=== PATIENT | female | born 1970 | race Caucasian/White ===

== ENCOUNTER → 2017-12-31 16:48 | Outpatient (CLI) | payer OTHER, SELFPAY ==
[2018-01-04 15:55] LABS: HPV Reflexed? NOT INDICATED
== END ==
PROVIDERS: Visit Provider Obstetrics & Gynecology
DX: Z12.4 Encounter for screening for malignant neoplasm of cervix (principal)
CPT/HCPCS: 88175; G0145

== ENCOUNTER → 2025-07-04 | Outpatient (CLI) | payer OTHER, SELFPAY ==
--- OUTSIDE RECORDS SUMMARY | 2025-07-04 07:12 | XMS RPT_ITS | CCD ---
Author Organization [facility] Care Team Providers Care Milk Route Supervisor Name Role Phone Marian RANDOLPH, Luigi Washington Primary Care Provider Lam SWAIN, Ealna Damian Unavailable [phone] Luigi Becerra MD Unavailable Tyron SWAIN, Bela Vides Unavailable Fadia SWAIN, Cj Palencia Unavailable Jeffy CONNELLYN, Rhonda Unavailable Unavailable Pinky HERNÁNDEZ, Bela Byers Unavailable Unavaila marcy Goodiwn LPN, Uche Unavailable Unavailable Graham SWAIN, Mirella J Unavailable [phone] Imer MERCHANDISE PRESENTATION ASSOCIATE, Lucy Unavailable Unavailable Kurt CONNELLYN, Jing Unavailable Unavailab herbert Blanca LPN, Stephany Unavailable Unavailabl e Unavailable Unavailable Luigi Becerra MD Primary Care Provider Unavailable Unavailable Luigi Becerra MD Primary Care Provider DALYIN GERMAIN II Referring UnavailDAYLIN Cisneros II Attending Unavailabl LUIGI Rm Primary Care Unavailable DAYLIN GERMAIN II Attending UnavailLUIGI Plunkett Primary Care Unavailable VY GERMAIN Attending UnavailLUIGI Plunkett Primary Care Unavailable DANIEL MARC Referring Unavailable DANIEL MARC Attending Unavailable LUIGI BECERRA Primary Care Unavailable REILLY OMALLEY Referring Unavailable REILLY OMALLEY Attending Unavailable LUIGI BECERRA Primary Care Unavailable LUIGI BECERRA Primary Care Unavailable Arin Patton MA Unavailable Unavailable Unavailable Unavailable [facility] Attending Unavailable GOODMAN RANDOLPH~[id number], GOODMAN KATLYN Holbrook Attending Unavailable LUIGI HARDY F~[id number] Primary Ca re Unavailable LUIGI HARDY F~[id number] Consulting Unavailable GOODMAN RANDOLPH~[id number], GOODMAN KATLYN Holbrook Admitting Unavailable MARIAN, LUIGI F Consulting Unavailable KATLYN MACK MD Consulting Unavailable KATLYN MACK MD Consulting Unavailable LUIGI HARDY F~[id number] Primary Ca re Unavailable LUIGI HARDY F~[id number] Consulting Unavailable GOODMAN RANDOLPH~[id number], GOODMAN KATLYN Holbrook Admitting Unavailable GOODMAN RANDOLPH~[id number] KATLYN Attending Unavailable MARIAN LUIGI F Consulting Unavailable KATLYN MACK MD Consulting Unavailable GOODMAN RANDOLPH, KATLYN Holbrook Consulting Unavailable KATLYN MACK MD Consulting Unavailable LUIGI HARDY F~[id number] Primary Ca re Unavailable GOODMAN RANDOLPH~[id number], GOODMAN KATLYN Holbrook Admitting Unavailable GOODMAN RANDOLPH~[id number], GOODMAN KATLYN Holbrook Attending Unavailable KATLYN MACK MD Consulting Unavailable Unavailable Primary Care Provider UnavailLARRY Torres Attending Unavailable SELF, SELF Referring Unavailable LARRY CAUSEY Referring Unavailable LARRY CAUSEY Attending Unavailable Lam, Elana Referring Unavailable Elana Fritz Attending Unavailable Luigi Becerra Primary Care Unavailable Unavailable Primary Care Provider UnavailCHOLO Asif Attending Unavail able CHOLO MURILLO Admitting Unavail able Allergies Allergy Classification Reported Allergen(s) Allergy Type Date of Onset Reaction(s) Facility Aspirin (1 source) Aspirin Drug Allergy [facility]; [facility] Opioid Agonists (1 source) Codeine Drug Allergy Vomiting [facility]; [facility] (20 sources) Codeine; Translations: [CODEINE] Drug Allergy 6 GI Upset, Nausea and vomiting [facility] Work Phone: (14 sources) Salicylate product; Translations: [SALICYLATES] Drug Intolerance 6 [facility] Work Phone: (14 sources) Aspirin; Translations: [ASPIRIN] Drug Allergy 5 [facility]; [facility], [facility]. (1 source) tree nut, unspecified; Translations: [TREE NUT] Propensity to adverse reactions to drug (disorder) [facility] Repository Medications Current Medications Medication Drug Class(es) Dates Sig (Normalized) Sig (Original) benoxinate hydrochloride 4 mg/ml / fluorescein sodium 2.5 mg/ml ophthalmic solution (6 sources) Diagnostic Dye Start: 05-15-2023 End: 05-15-2023 fluorescein-benoxi dea 0.25-0.4 % 1 Drop (FLURESS) Start: 04-30-2023 End: 04-30-2023 fluorescein-benoxinate 0.25- 0.4 % 1 Drop (FLURESS) Start: 04-09-2022 End: 04-10-2022 fluorescein-benoxinate 0.25- 0.4 % 1 Drop (FLURESS) Start: 04-05-2022 End: 04-05-2022 fluorescein-benoxinate 0.25- 0.4 % 1 Drop (FLURESS) Start: 03-12-2022 End: 03-13-2022 fluorescein-benoxinate 0.25- 0.4 % 1 Drop (FLURESS) dexamethasone 1 mg/ml / neomycin 3.5 mg/ml / polymyxin b [id number] unt/ml ophthalmic suspension (1 source) Aminoglycoside Antibacterial, Polymyxin-class Antibacterial, Corticosteroid Start: 03-12-2022 End: 03-19-2022 take 1 drop(s) into the eye(s) four times daily [id number] 3.5 MG/ML-10,000 UNIT/ML-0.1% EYE DROPS Use 1 Drop in both eyes four times daily for 7 days. 5 mL 0 03/12/2022 03/19/2022 Active Comment on above: Use 1 Drop in both eyes four times daily for 7 days. levothyroxine sodium 0.05 mg oral tablet (20 sources) l-Thyroxine take 1 tablet by mouth once daily SYNTHROID, 50MCG (Oral Tablet) ; 1 qd (50 MCG) Comment on above: Take 50 mcg by mouth once daily. ondansetron 4 mg oral tablet (1 source) Serotonin-3 Receptor Antagonist Start: 06-21-2025 ondansetron (Zofran) 4 MG tablet Indications: Screen for colon cancer Take 1 (one) tablet (4 mg total) by mouth See Admin Instructions Take one tablet by mouth one hour prior to each colon cleanse as needed for nausea for 2 doses . 2 tablet 06/21/2025 Active phenylephrine hydrochloride 25 mg/ml ophthalmic solution (8 sources) alpha-1 Adrenergic Agonist Start: 11-06-2023 End: 11-06-2023 PHENYLephrine 2.5 % 1 Drop (AK-DILATE, STEPAHNIE-SYNEPHRINE) Start: 05-15-2023 End: 05-15-2023 PHENYLephrine 2.5 % 1 Drop ( AK-DILATE, STEPHANIE-SYNEPHRINE) Start: 04-30-2023 End: 04-30-2023 PHENYLephrine 2.5 % 1 Drop ( AK-DILATE, STEPHANIE-SYNEPHRINE) Start: 04-16-2023 End: 04-16-2023 PHENYLephrine 2.5 % 1 Drop ( AK-DILATE, STEPHANIE-SYNEPHRINE) Start: 04-14-2023 End: 04-14-2023 PHENYLephrine 2.5 % 1 Drop ( AK-DILATE, STEPHANIE-SYNEPHRINE) Start: 04-09-2022 End: 04-10-2022 PHENYLephrine 2.5 % 1 Drop ( AK-DILATE, STEPHANIE-SYNEPHRINE) Start: 04-05-2022 End: 04-05-2022 PHENYLephrine 2.5 % 1 Drop ( AK-DILATE, STEPHANIE-SYNEPHRINE) polymyxin b [id number] unt/ml / trimethoprim 1 mg/ml ophthalmic solution (4 sources) Dihydrofolate Reductase Inhibitor Antibacterial, Polymyxin-class Antibacterial Start: 04-05-2022 End: 04-10-2022 take 1 drop(s) into the eye(s) four times daily trimethoprim-polymyxin (POLYTRIM) 10,000 unit- 1 mg/mL ophthalmic solution Use 1 Drop in the right eye four times daily for 5 days. 10 mL 0 04/05/2022 04/10/2022 Active Comment on above: Use 1 Drop in the ri ght eye four times daily for 5 days. proparacaine hydrochloride 5 mg/ml ophthalmic solution (4 sources) Local Anesthetic Start: 11-06-2023 End: 11-06-2023 proparacaine 0.5 % 1 Drop (ALCAINE) Start: 05-15-2023 End: 05-15-2023 proparacaine 0.5 % 1 Drop (A LCAINE) Start: 04-30-2023 End: 04-30-2023 proparacaine 0.5 % 1 Drop (A LCAINE) Start: 04-09-2022 End: 04-10-2022 proparacaine 0.5 % 1 Drop (A LCAINE) sod sulf-pot chloride-mag sulf (Sutab) 1.479-0.188- 0.225 gram Tab (1 source) Start: 06-21-2025 sod sulf-pot chloride-mag sulf (Sutab) 1.479-0.188- 0.225 gram Tab Indications: Screen for colon cancer Take 1 kit by mouth See Admin Instructions Please take as directed per office letter you have received. DO NOT FOLLOW THE DIRECTIONS ON THIS BOX. for 1 dose . 24 tablet 06/21/2025 Active thyroid (prison) 15 mg oral tablet (20 sources) Start: 07-25-2021 take 3 tablets by mouth once daily [place] THYROID 15 mg tablet Take 45 mg by mouth once daily. 0 07/25/2021 Active End: 04-14-2023 Thyroid 32.5 mg ORAL tablet Take 32.5 mg by mouth. 0 04/14/2023 Discontinued (Discontinued by another Health Care Provider) Comment on above: Take 32.5 mg by mout h. Take 45 mg by mouth once daily. tropicamide 10 mg/ml ophthalmic solution (8 sources) Anticholinergic Start: 11-06-2023 End: 11-06-2023 tropicamide 1 % 1 Drop (MYDRIACYL) Start: 05-15-2023 End: 05-15-2023 tropicamide 1 % 1 Drop (MYDR IACYL) Start: 04-30-2023 End: 04-30-2023 tropicamide 1 % 1 Drop (MYDR IACYL) Start: 04-16-2023 End: 04-16-2023 tropicamide 1 % 1 Drop (MYDR IACYL) Start: 04-14-2023 End: 04-14-2023 tropicamide 1 % 1 Drop (MYDR IACYL) Start: 04-09-2022 End: 04-10-2022 tropicamide 1 % 1 Drop (MYDR IACYL) Start: 04-05-2022 End: 04-05-2022 tropicamide 1 % 1 Drop (MYDR IACYL) Completed/Discontinued Medications Medication Drug Class(es) Dates Sig (Normalized) Sig (Original) amoxicillin 500 mg oral tablet (13 sources) Penicillin-class Antibacterial Start: 11-10-2017 End: 11-20-2017 take 1 tablet by mouth three times daily Amoxicillin 500 MG Oral Tablet ; 1 (one) Tablet TID for 10 days Quantity: 30 {Tablet} Refills: 0 Ordered: 10-Nov-2017 MD Luigi Becerra Start: 10-Nov-2017 End: 20-Nov-2017 Status: Inactive cephalexin 500 mg oral capsule (13 sources) Cephalosporin Antibacterial Start: 03-22-2020 End: 04-01-2020 take 1 capsule by mouth three times daily Cephalexin 500 MG Oral Capsule ; 1 Capsule three times daily for 10 days Quantity: 30 {Capsule} Refills: 0 Ordered: 22-Mar-2020 BRYNN Ackerman Start: 22-Mar-2020 End: 01-Apr-2020 Status: Inactive fluorometholone 1 mg/ml ophthalmic suspension (2 sources) Corticosteroid Start: 04-09-2022 End: 04-16-2022 fluorometholone (FML LIQUID FILM) 0.1 % ophthalmic suspension Use 1 Drop in the right eye four times daily. 5 mL 1 04/09/2022 04/16/2022 Discontinued (Clinical Decision) Comment on above: Use 1 Drop in the ri ght eye four times daily. neomycin/polymyxin B/dexametha (MAXITROL OPHTHALMIC) (1 source) End: 04-05-2022 neomycin/polymyxin B/dexametha (MAXITROL OPHTHALMIC) Use in eyes. 0 04/05/2022 Discontinued (Course of therapy completed) Comment on above: Use in eyes. predniSONE 20 mg oral tablet (4 sources) Start: 10-19-2024 End: 01-20-2025 predniSONE 20 mg tablet ; 1 (one) Tablet as directed for 0 days Quantity: 20 {Tablet} Refills: 0 Ordered: 20-Jan-2025 DESMOND Bardales Start: 19-Oct-2024 End: 20-Jan-2025 Status: Inactive Comments: Take 3tabs qd for 3 days thenTake 2tabs qd for 3 days thenTake 1tab qd for 3 days thenTake 1/2tab qd for 4 days. Comment on above: Take 3tabs qd for 3 days thenTake 2tabs qd for 3 days thenTake 1tab qd for 3 days thenTake 1/2tab qd for 4 days. Problems Active Problems Problem Classification Problem Date Documented Date Episodic/Chronic Abdominal pain (20 sources) Abdominal pain; Translations: [Unspecified abdominal pain] 04-16-2023 Episodic Genitourinary symptoms and ill-defined conditions (3 sources) Dysuria; Translations: [Dysuria] Onset: 05-14-2025 05-15-2025 Episodic Inflammation; infection of eye (except that caused by tuberculosis or sexually transmitteddisease) (1 source) Conjunctivitis of bilateral eyes caused by bacteria; Translations: [Unspecified conjunctivitis] Episodic Influenza (20 sources) Influenza with other respiratory manifestations 11-28-2021 Episodic Nutritional deficiencies (3 sources) Vitamin D deficiency, unspecified; Translations: [VITAMIN D DEFICIENCY UNSPECIFIED] Onset: 09-03-2024 Chronic Other eye disorders (1 source) Hemorrhage of left vitreous body; Translations: [Vitreous hemorrhage, left eye] 04-14-2023 Chronic Other eye disorders (1 source) Bilateral vitreous floaters; Translations: [Other vitreous opacities, bilateral] 04-14-2023 Chronic Other injuries and conditions due to external causes (20 sources) Foreign body in left ear; Translations: [Foreign body in left ear, initial encounter] 04-16-2023 Episodic Other injuries and conditions due to external causes (20 sources) Knee, leg, ankle, and foot injury 04-16-2023 Episodic Other non-traumatic joint disorders (20 sources) Joint pain; Translations: [Pain in unspecified joint] 04-16-2023 Episodic Other non-traumatic joint disorders (20 sources) Knee pain; Translations: [Pain in right knee] 04-16-2023 Episodic Other screening for suspected conditions (not mental disorders or infectious disease) (20 sources) Patient encounter status; Translations: [Encounter for screening for diabetes mellitus] Onset: 06-19-2025 11-30-2021 Episodic Other skin disorders (20 sources) Sebaceous cyst of skin; Translations: [Sebaceous cyst] 04-16-2023 Episodic Other skin disorders (8 sources) Eruption; Translations: [Rash and other nonspecific skin eruption] 10-19-2024 Episodic Otitis media and related conditions (20 sources) Otitis media of left ear; Translations: [Otitis media, unspecified, left ear] 04-16-2023 Episodic Poisoning by nonmedicinal substances (5 sources) Tick bite; Translations: [Bitten or stung by nonvenomous insect and other nonvenomous arthropods, initial encounter] 01-20-2025 Episodic Residual codes; unclassified (20 sources) Body mass index 20-24 - normal; Translations: [Body mass index (BMI) 23.0-23.9, adult] 04-16-2023 Episodic Retinal detachments; defects; vascular occlusion; and retinopathy (2 sources) Hemorrhage of left retina; Translations: [Retinal hemorrhage, left eye] 04-16-2023 Chronic Superficial injury; contusion (4 sources) Conjunctival abrasion; Translations: [Injury of conjunctiva and corneal abrasion without foreign body, right eye, initial encounter] Episodic Thyroid disorders (17 sources) Hypothyroidism; Translations: [Hypothyroidism, unspecified] Onset: 06-20-2008 06-20-2008 Chronic Unclassified (4 sources) Number of Children 10-19-2024 Comment on above: 3. 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, unspecified eye] Onset: 01-01-2016 01-01-2016 Episodic Open wounds of head; neck; and trunk (12 sources) Conjunctival laceration; Translations: [Ocular laceration without prolapse or loss of intraocular tissue, right eye, initial encounter] Onset: 04-09-2022 04-09-2022 Episodic Other and unspecified benign neoplasm (13 sources) Nevus of choroid of left eye; 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 The course has been increasing. The pain is described as a plugged (fly in ear, suffocated it with oil.). The pain is described as being located in the inner ear. The pain is felt in the left ear. There has been no associated chills, decreased hearing, fever, inability to 'pop' ear drum, non-purulent discharge from ear, protrusion of ear, purulent discharge from ear, sore throat, runny nose, cough, tinnitus or vertigo. Medical History does not include ear infections, seasonal allergies or recurrent sinusitis. 03-06-2022 Unclassified (13 sources) Well adult female - The patient feels well with no complaints, has good energy level and is sleeping well. The first day of the last menstrual period was : (08/2021). The patient has a balanced diet. The patient exercises daily. The patient sleeps 7 hours per night. 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 11-28-2021 Unclassified (13 sources) boil on back - pt said she noticed a small knot on her back for about 6 months- upper back- it didnt hurt friday of last week, and this weekend it flared up - it started to look like a zit, and now its very tender, warm to touch, and hurts if a bra is on it, or if she moves her arm, shoulders and back, it hurtseven sitting she feels a very tight paintright hot compress, boileas, lis oil- nothings helped, daughter popped it last night and drainage came outleaving for vacation on friday and is worried about it causing pain 03-22-2020 Unclassified (13 sources) Cold Symptoms - Symptoms include nasal congestion, runny nose, purulent discharge, ear pain (particularly the left.), dry cough, fever (highest 101 and that started Friday into Friday. No fever yeaterday during the day but had one last night of 101 as well. No temperature this am.), chills and facial pain (and muscles and joints ache.), but do not include sore throat, scratchy throat, wheezing or headache. The onset was gradual 4 day(s) ago. The patient describes this as worsening. The patient is not currently being treated for this problem. Risk factors do not include smoking. Note for Upper respiratory infection: reviewed by [facility] 11-10-2017 Unclassified (13 sources) Cold Symptoms - Symptoms include nasal congestion, runny nose, ear pain (left; can't hear out of the ear), sore throat, dry cough, productive cough, fever, chills and headache. The onset was gradual 2 day(s) ago. The symptoms occur constantly. The patient describes this as moderate in severity and unchanged. Current treatment includes NSAIDs (730). 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 Medical history includes tonsillectomy, but patient denies history of seasonal allergies, recurrent sinusitis, recurrent strep pharyngitis, asthma or recurrent ear infections. 09-02-2014 Unclassified (13 sources) Knee Pain - The onset of the knee pain has been sudden following an incident not at work and has been occurring in a persistent pattern for 2 days. The course has been worsening. The knee pain is moderate to severe in the right knee. The knee pain is characterized as a dull aching. The knee pain is described as being located in the posterior knee. The knee pain is aggravated by physical activity. The knee pain is relieved by ice and elevation of leg. The symptoms have been associated with muscle stiffness, giving way, joint swelling and painful ROM, but have not been associated with warmth, erythema, fever, chills, difficulty going up and down stairs or difficulty with sports activities. The knee pain was preceeded by sports activities (soccer- planted and pivoted and witnessed the knee shift outward). There were no previous diagnostic tests. There were no previous evaluations. There has been no previous surgeries. There is no use of assistive devices. Previous medications include NSAID. 06-28-2013 Unclassified (13 sources) Abdominal pain - The onset of the abdominal pain has been acute and has been occurring in an intermittent pattern for 6 months. The course has been increasing. The pain is described as a moderate burning, stabbing and dull ache. The pain is located in the lower abdomen (Lower to mid abdomen.). The symptoms are relieved by bowel movements (irregular bowels. Tends to have looser stools. Is not constipated.). The symptoms have been associated with abdominal distention and bloating, while the symptoms have not been associated with constipation or diarrhea. Note for Abdominal pain: Complains of increased fatigue over the past several months.Father of liver cancer 5 years ago ( pt sx are similar ). Pain is not worsening. Pt notes she can't eat nuts or she gets increased sx. Minimal caffeine. Rare EtOH. 04-14-2012 Unclassified (13 sources) Injured left great toe - `Kicked a soccer ball with bare foot and injured left great toe 1 week ago. Continues with swelling and pain has been increasing. 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 No previous injury hx. 04-24-2011 Unclassified (4 sources) Rash - The onset of the rash has been sudden and has been occurring in a persistent pattern for 2 days. The course has been increasing. The rash is characterized as red and raised above the skin. The rash was first seen on the face (around the eyes). It spread to the face, the neck, the trunk and the back. There has been associated itching and erythema, while there has been no associated pain, drainage or edema. There has been associated itching, while there has been no chills, fatigue, fever, malaise or weight loss. Note for Rash: Patient denies any new exposures such as soaps, lotions, or laundry detergents.Patient reports that she has new foster children at home. She is concerned about the possibility of strep as this has been going around many schools. She denies any sore throat, fever, general malaise, or other cold symptoms. 10-19-2024 Unclassified (1 source) Insect Bite/Sting 01-20-2025 Unclassified (2 sources) tick bite - Patient states last week on 01/10/2025 she found a tick on her very lower back/ intergluteal fold. She was able to get the tick outSince then the area is slightly red and itchy, no bullseye rashPatient thinks the tick was on for only a day or less, and she said the tick was very small reviewed by [facility] 01-20-2025 Results Test Name Value Interpretation Reference Range Facility THINPREP AUTOMATED PAP AND H PV mRNA E6/E7on 06-11-2025 CLINICAL INFORMATION: Normal [facility] Comment on above: Result Comment: Rout ine exam Performed By: #### [id number] #### [facility] [address], [address] [place] [address] Computer Systems Software Engineer: Philippe Watt MD COMMENT Normal [facility] Comment on above: Result Comment: EXPL ANATORY NOTE: The Pap is a screening test for cervical cancer. It is not a diagnostic test and is subject to false negative and false positive results. It is most reliable when a satisfactory sample, regularly obtained, is submitted with relevant clinical findings and history, and when the Pap result is evaluated along with historic and current clinical information. Performed By: #### [id number] #### [facility] [address], [address] [place] [address] Computer Systems Software Engineer: Philippe Watt MD COMMENT: Normal [facility] Comment on above: Result Comment: This Pap test has been evaluated with the ThinPrep(R) Imaging System. Parabasal cells in smears that lack maturation due to atrophy or other hormonal reasons cannot be differentiated from transformation zone cells. Accordingly, presence or absence of endocervical or transformation zone components cannot be reported in this patient. Performed By: #### [id number] #### [facility] [place] [address] Computer Systems Software Engineer: Philippe Watt MD WEB APPLICATIONS PROGRAMMER: Normal [facility] Comment on above: Result Comment: PCJ, SCT(ASCP) CT screening location: [facility] [place] [address]. CLIA: [id number] Performed By: #### 9 [id number] #### [facility] [address], [address] [place] [address] Computer Systems Software Engineer: Philippe Watt MD HPV mRNA E6/E7 Not detected Normal Not Detected [facility] Comment on above: Result Comment: Meth odology: Printing Pressman-Mediated Amplification This assay detects E6/E7 viral messenger RNA (mRNA) from 14 high-risk HPV types (16,18,31,33,35,39,45,51,52,56,58,59,66,68). Cervical sources are required for HPV testing. If a vaginal source from a patient who has had a total hysterectomy with removal of cervix was submitted, please contact the testing laboratory for alternative testing options. For additional information, please refer to http://education.Co-Work/faq/BMX378j3 (This link if provided for information/ educational purposes only.) Performed By: #### [id number] #### [facility] [place] [address] Computer Systems Software Engineer: Philippe Watt MD INTERPRETATION/RESULT: Normal [facility] Comment on above: Result Comment: Cyto logy Results: Negative for intraepithelial lesion or malignancy. Atrophic pattern; predominantly parabasal cells Performed By: #### 9 [id number] #### [facility] [place] [address] Computer Systems Software Engineer: Philippe Watt MD LMP: Normal [facility] Comment on above: Result Comment: MIGNON DUMONT Performed By: #### 9 0933 #### [facility] [place] [address] Computer Systems Software Engineer: Philippe Watt MD PREV. BX: Normal [facility] Comment on above: Result Comment: None given Performed By: #### 9 0933 #### [facility] [place] [address] Computer Systems Software Engineer: Philippe Watt MD PREV. PAP: Normal [facility] Comment on above: Result Comment: None given Performed By: #### 9 0933 #### [facility] [place] [address] Computer Systems Software Engineer: Philippe Watt MD SOURCE: Normal [facility] Comment on above: Result Comment: Cerv ix Performed By: #### 9 0933 #### [facility] [place] [address] Computer Systems Software Engineer: Philippe Watt MD STATEMENT OF ADEQUACY: Normal [facility] Comment on above: Result Comment: SATI SFACTORY FOR EVALUATION Performed By: #### 9 0933 #### [facility] [address], [address] [place] [address] Computer Systems Software Engineer: Philippe Watt MD LIPID PANEL, [facility] 05-16 Cholesterol [Mass/Vol] 194 mg/dL Normal <200 [facility] Comment on above: Performed By: #### 7 600 #### [facility] [address], [address] [place] [address] Computer Systems Software Engineer: Philippe Watt MD Cholesterol in HDL [Mass/Vol] 78 mg/dL Normal > OR = 50 [facility] Comment on above: Performed By: #### 7 600 #### [facility] [address], [address] [place] [address] Computer Systems Software Engineer: Philippe Watt MD Cholesterol in LDL [Mass/Vol] 99 mg/dL Normal [facility] Comment on above: Result Comment: Refe rence range: <100 Desirable range <100 mg/dL for primary prevention; <70 mg/dL for patients with CHD or diabetic patients with > or = 2 CHD risk factors. LDL-C is now calculated using the Go-Dena calculation, which is a validated novel method providing better accuracy than the Friedewald equation in the estimation of LDL-C. Go ALLEN et al. AYSHA. 2013;310(19): 2022-2308 (http://education.[employer]/faq/XXU777) Performed By: #### 7 600 #### [facility] [address], [address] [place] [address] Computer Systems Software Engineer: Philippe Watt MD Cholesterol.total/Choles terol in HDL [Mass ratio] 2.5 {ratio} Normal <5.0 [facility] Comment on above: Performed By: #### 7 600 #### [facility] [address], [address] [place] [address] Computer Systems Software Engineer: Philippe Watt MD NON HDL CHOLESTEROL 116 mg/dL (calc) Normal <130 [facility] Comment on above: Result Comment: For patients with diabetes plus 1 major ASCVD risk factor, treating to a non-HDL-C goal of <100 mg/dL (LDL-C of <70 mg/dL) is considered a therapeutic option. Performed By: #### 7 600 #### [facility] [address] [facility], [address] [place] [address] Computer Systems Software Engineer: Philippe Watt MD Triglyceride [Mass/Vol] 78 mg/dL Normal <150 [facility] Comment on above: Performed By: #### 7 600 #### [facility] [address] [place] [address], [address] [place] [address] Computer Systems Software Engineer: Philippe Watt MD URINE CULTUREon 05-16-2025 Bacteria identified Cx Nom (U) SPECIMEN DESCRIPTION URINE CLEAN CATCH COLONY COUNT 50,000 C/C/ML CULTURE ESCHERICHIA COLI * Result Note: Testing performed at [place] [address] * REPORT STATUS 05/16/2025 * Result Note: FINAL * ORGANISM ESCHERICHIA COLI * Result Note: ESCHERICHIA COLI * METHOD HANK AMPICILLIN >=32 RESISTANT AMPICILLIN/SULBACTAM >=32 RESISTANT CEFTRIAXONE <=1 SUSCEPTIBLE CEFAZOLIN 16 INTERMEDIATE IMIPENEM <=0.25 SUSCEPTIBLE GENTAMICIN >=16 RESISTANT TOBRAMYCIN 4 SUSCEPTIBLE TRIMETH-SULFA >=320 RESISTANT AMOXICILLIN/CLAVULANIC A 16 INTERMEDIATE NITROFURANTOIN <=16 SUSCEPTIBLE PIPERACILLIN/TAZOBACTA M 16 SUSCEPTIBLE LEVOFLOXACIN <=0.12 SUSCEPTIBLE ESBL NEGATIVE ERTAPENEM <=0.5 SUSCEPTIBLE CEFEPIME <=1 SUSCEPTIBLE CEFTAZIDIME <=1 SUSCEPTIBLE Normal [facility] Comment on above: Performed By: #### A URNC #### [place] [address] POCT URINALYSIS DIPSTICK NON AUTOMATEDOrdered By: Chloe Eaton on 05-15-2025 Amorphous sediment LM Ql (Urine sed) [facility] Appearance (U) cloudy [facility] Bacteria LM Ql (Urine sed) [facility] Bilirubin Ql (U) Negative [facility] Casts LM.LPF (Urine sed) [#/Area] [facility] Color (U) light yellow [facility] Crystals LM Nom (Urine sed) [facility] Epithelial cells.squamous LM.HPF (Urine sed) [#/Area] [facility] Flow cytometry specialist review Geovanni (Unsp spec) [Interp] [facility] Glucose Auto test strip (U) [Mass/Vol] Negative mg/dL [facility] Interpretation and review of laboratory results Abnormal [facility] Ketones [Mass/Vol] Negative mg/dL [facility] Leukocyte esterase Qn (U) [facility] Leukocyte esterase Test strip Ql (U) large [facility] Nitrite Ql (U) Negative [facility] pH (U) 6.5 [pH] 5 - 7 [facility] Protein Ql (U) 30 mg/dL [facility] RBC LM.HPF (Urine sed) [#/Area] [facility] RBC Ql (U) large [facility] Specific gravity (U) [Rel density] 1.010 1.001 - 1.035 [facility] Transitional cells LM Ql (Urine sed) [facility] Urobilinogen Qn (U) 0.2 [facility] WBC LM.HPF (Urine sed) [#/Area] [facility] 25-hydroxyvitamin D [Mass/Vo l]on 02-21-2025 25-hydroxyvitamin D3 [Mass/Vol] 49.6 ng/mL Normal 30.0-100.0 [facility] Comment on above: Performed By: #### 3 024-7, 69547-0, 2777-1, 23275-6, 80418-1, 3051-0, 40847-5, 17209-1 #### [facility] [address] [place] [address] Computer Systems Software Engineer - Rani COLES [id number] HVITD VITAMIN D INTERPRETATION VITAMIN D STATUS RANGE ----- DEFICIENCY <20 ng/mL INSUFFICIENCY 20-30 ng/mL SUFFICIENCY 30-100 ng/mL TOXICITY >100 ng/mL Normal [facility] Comment on above: Performed By: #### 3 024-7, 19538-0, 2777-1, 94012-5, 60408-3, 3051-0, 97598-2, 90844-6 #### [facility] [address] [place] [address] Computer Systems Software Engineer - Rani COLES [id number] Basic metabolic 2000 panelon 02-21-2025 Anion gap [Moles/Vol] 6.0 mmol/L Normal <=15.0 [facility] Comment on above: Performed By: #### 6 2292-8, 2777-1, 3024-7, 3051-0, 02015-6, 46310-8, 71298-9, 11952-2 #### [facility] [address] [place] [address] Computer Systems Software Engineer - Rani COLES [id number] Calcium [Mass/Vol] 10.0 mg/dL Normal 8.5-10.1 [facility] Comment on above: Performed By: #### 6 2292-8, 2777-1, 3024-7, 3051-0, 33106-6, 66550-0, 49248-1, 88372-4 #### [facility] [address] [place] [address] Computer Systems Software Engineer - Rani COLES [id number] Chloride [Moles/Vol] 108 mmol/L High 98-107 [facility] Comment on above: Performed By: #### 6 2292-8, 2777-1, 3024-7, 3051-0, 90141-9, 32265-9, 15698-9, 96070-4 #### [facility] [address] [place] [address] Computer Systems Software Engineer - Rani COLES [id number] CO2 [Moles/Vol] 30 mmol/L Normal 21-32 [facility] Comment on above: Performed By: #### 6 2292-8, 2777-1, 3024-7, 3051-0, 96319-7, 62517-5, 99836-8, 40359-6 #### [facility] [address] [place] [address] Computer Systems Software Engineer - Rani COLES [id number] Creatinine [Mass/Vol] 0.82 mg/dL Normal 0.51-0.95 [facility] Comment on above: Performed By: #### 6 2292-8, 2777-1, 3024-7, 3051-0, 80953-6, 17583-4, 15623-6, 02089-9 #### [facility] [address] [place] [address] Computer Systems Software Engineer - Rani COLES [id number] GFR/1.73 sq M.predicted MDRD (S/P/Bld) [Vol rate/Area] mL/min/{1.73_m2} Normal >=60 [facility] Comment on above: Performed By: #### 6 2292-8, 2777-1, 3024-7, 3051-0, 71960-4, 22565-3, 56895-3, 24458-6 #### [facility] [address] [place] [address] Computer Systems Software Engineer - Rani COLES [id number] Glucose [Mass/Vol] 86 mg/dL Normal 74-106 [facility] Comment on above: Performed By: #### 6 2292-8, 2777-1, 3024-7, 3051-0, 86613-2, 11644-2, 61569-4, 41457-7 #### [facility] [address] [place] [address] Computer Systems Software Engineer - Rani COLES [id number] HGFR GLOMERULAR FILTRATIO N RATE INTERPRETATION~The eGFR is calculated using the MDRD equation.~This equation has been validated in patients with chronic kidney disease;~however, it underestimates the GFR in healthy patients with GFR's over 60 mL/min.~The equation is not valid in children under the age of 18.~NOTE: Criteria for Chronic Kidney Disease:~ ~1. Kidney damage for at least three months, as defined~by structural or functional abnormalities of the kidney,~with or without decreased glomerular filtration rate, manifested by either:~* Pathological abnormalities or~* Markers of Kidney damage, including abnormalities in~the composition of the blood or urine or abnormalities in imaging tests.~ ~2. GFR <60 mL/min/1.73 m squared for at least three months, with or without kidney damage.~ Normal [facility] Comment on above: Performed By: #### 6 2292-8, 2777-1, 3024-7, 3051-0, 43051-0, 09470-3, 55351-8, 64812-2 #### [facility] [address] [place] [address] Computer Systems Software Engineer - Rani Urbinanikole COLES [id number] Potassium [Moles/Vol] 4.5 mmol/L Normal 3.5-5.1 [facility] Comment on above: Performed By: #### 6 2292-8, 7-1, 3024-7, 3051-0, 49469-9, 88327-3, 81331-4, 48858-0 #### [facility] [address] [place] [address] Computer Systems Software Engineer - Rani COLES [id number] Sodium [Moles/Vol] 144 mmol/L Normal 136-145 [facility] Comment on above: Performed By: #### 6 2292-8, 7-1, 3024-7, 3051-0, 16852-3, 34358-3, 14795-7, 86926-4 #### [facility] [address] [place] [address] Computer Systems Software Engineer - Rani COLES [id number] Urea nitrogen [Mass/Vol] 12 mg/dL Normal 7-17 [facility] Comment on above: Performed By: #### 6 2292-8, 2777-1, 3024-7, 3051-0, 18466-6, 31167-6, 65734-9, 70613-4 #### [facility] [address] [place] [address] Computer Systems Software Engineer - Rani COLES [id number] CBC panel Auto (Bld)on 02-21 Erythrocyte distribution width (RBC) [Entitic vol] 40.5 fL Normal 36.4-46.3 [facility] Comment on above: Performed By: #### 3 024-7, 13522-4, 2777-1, 57547-7, 74876-5, 3051-0, 25790-2, 40045-3 #### [facility] [address] [place] [address] Computer Systems Software Engineer - Rani COLES [id number] Hematocrit (Bld) [Volume fraction] 40.1 % Normal 37.0-47.0 [facility] Comment on above: Performed By: #### 3 024-7, 74501-8, 2777-1, 65006-1, 90275-7, 3051-0, 71773-9, 07709-7 #### [facility] [address] [place] [address] Computer Systems Software Engineer - Rani COLES [id number] Hemoglobin (Bld) [Mass/Vol] 13.3 g/dL Normal 12.0-16.0 [facility] Comment on above: Performed By: #### 3 024-7, 92375-5, 2777-1, 07466-9, 74156-5, 3051-0, 72048-9, 08898-5 #### [facility] [address] [place] [address] Computer Systems Software Engineer - Rani COLES [id number] MCH (RBC) [Entitic mass] 29.9 pg Normal 27.0-31.0 [facility] Comment on above: Performed By: #### 3 024-7, 77015-2, 2777-1, 44753-2, 83136-8, 3051-0, 52906-7, 41030-5 #### [facility] [address] [place] [address] Computer Systems Software Engineer - Rani COLES [id number] MCHC (RBC) [Mass/Vol] 33.2 g/dL Normal 32.0-36.0 [facility] Comment on above: Performed By: #### 3 024-7, 29048-7, 2777-1, 59739-4, 64288-7, 3051-0, 21906-2, 73972-2 #### [facility] [address] [place] [address] Computer Systems Software Engineer - Rani COLES [id number] MCV (RBC) [Entitic vol] 90.1 fL Normal 80.0-100.0 [facility] Comment on above: Performed By: #### 3 024-7, 93059-6, 2777-1, 17599-7, 03576-9, 3051-0, 36954-7, 82979-3 #### [place] [address] [place] [address] Computer Systems Software Engineer - Rani COLES [id number] Platelet mean volume (Bld) [Entitic vol] 10.1 fL Normal 9.0-13.0 [facility] Comment on above: Performed By: #### 3 024-7, 29343-7, 2777-1, 91151-6, 43879-3, 3051-0, 63966-9, 99758-3 #### [place] [address] [place] [address] Computer Systems Software Engineer - Rani BRANDONIA [id number] Platelets (Bld) [#/Vol] 265 10*3/uL Normal 130-400 [facility] Comment on above: Performed By: #### 3 024-7, 06381-8, 2777-1, 07709-2, 81702-8, 3051-0, 67778-3, 25112-6 #### [facility] [address] [place] [address] Computer Systems Software Engineer - Rani BRANDONIA [id number] RBC (Bld) [#/Vol] 4.45 10*6/uL Normal 4.00-6.30 [facility] Comment on above: Performed By: #### 3 024-7, 20250-3, 2777-1, 77777-0, 40058-8, 3051-0, 85683-5, 53241-8 #### [facility] [address] [facility] [place] [address] Computer Systems Software Engineer - Rani COLES [id number] WBC (Bld) [#/Vol] 5.91 10*3/uL Normal 4.80-10.80 [facility] Comment on above: Performed By: #### 3 024-7, 44148-3, 2777-1, 32467-8, 43678-5, 3051-0, 36754-7, 86660-7 #### [facility] [address] [facility] [place] [address] Computer Systems Software Engineer - Rani COLES [id number] FREE T3on 02-21-2025 Free T3 [Mass/Vol] 3.94 pg/mL Normal 2.18-3.98 [facility] Comment on above: Performed By: #### 6 2292-8, 2777-1, 3024-7, 3051-0, 40182-6, 78737-9, 26560-4, 56150-3 #### [facility] [address] [facility] [place] [address] Computer Systems Software Engineer - Rani COLES [id number] FREE T4on 02-21-2025 Free T4 [Mass/Vol] 1.12 ng/dL Normal 0.76-1.46 [facility] Comment on above: Performed By: #### 3 024-7, 44100-3, 2777-1, 17916-2, 38749-5, 3051-0, 53971-3, 50288-5 #### [facility] [address] [facility] [place] [address] Computer Systems Software Engineer - Rani BRANDONIA [id number] Hepatic function 2000 panelo n 02-21-2025 Albumin [Mass/Vol] 3.8 g/dL Normal 3.4-5.0 [facility] Comment on above: Performed By: #### 3 024-7, 37748-0, 2777-1, 59081-3, 59857-9, 3051-0, 59813-8, 57822-1 #### [facility] [address] [facility] [place] [address] Computer Systems Software Engineer - Rani COLES [id number] Albumin/Globulin [Mass ratio] 1.5 {ratio} Normal 1.0-2.2 [facility] Comment on above: Performed By: #### 3 024-7, 84433-2, 2777-1, 66344-9, 04918-4, 3051-0, 67213-0, 65137-1 #### [facility] [address] [facility] [place] [address] Computer Systems Software Engineer - Rani COLES [id number] ALP [Catalytic activity/Vol] 89 U/L Normal 50-136 [facility] Comment on above: Performed By: #### 3 024-7, 24455-2, 2777-1, 49908-7, 71076-8, 3051-0, 56951-5, 26596-9 #### [facility] [address] [facility] [place] [address] Computer Systems Software Engineer - Rani COLES [id number] ALT [Catalytic activity/Vol] 28 U/L Normal 14-59 [facility] Comment on above: Performed By: #### 3 024-7, 06837-8, 2777-1, 13079-0, 45093-7, 3051-0, 02487-8, 12175-3 #### [facility] [address] [facility] [place] [address] Computer Systems Software Engineer - Rani COLES [id number] AST [Catalytic activity/Vol] 26 U/L Normal 15-37 [facility] Comment on above: Performed By: #### 3 024-7, 23465-8, 2777-1, 93299-4, 63006-2, 3051-0, 66484-0, 61950-1 #### [facility] [address] [place] [address] Computer Systems Software Engineer - Rani BRANDONIA [id number] Bilirubin [Mass/Vol] 0.7 mg/dL Normal 0.2-1.0 [facility] Comment on above: Performed By: #### 3 024-7, 78032-4, 2777-1, 04196-6, 59608-0, 3051-0, 07982-5, 94923-9 #### [facility] [address] [place] [address] Computer Systems Software Engineer - Rani BRANDONIA [id number] Bilirubin.conjugated [Mass/Vol] 0.2 mg/dL Normal <=0.2 [facility] Comment on above: Performed By: #### 3 024-7, 21469-7, 2777-1, 08515-0, 79871-3, 3051-0, 71703-9, 24402-1 #### [facility] [address] [place] [address] Computer Systems Software Engineer - Rani COLES [id number] Globulin (S) [Mass/Vol] 2.6 g/dL Normal 2.4-3.8 [facility] Comment on above: Performed By: #### 3 024-7, 66734-2, 2777-1, 56643-5, 82163-6, 3051-0, 26472-0, 13239-6 #### [facility] [address] [place] [address] Computer Systems Software Engineer - Rani BRANDONIA [id number] Protein [Mass/Vol] 6.4 g/dL Normal 6.4-8.2 [facility] Comment on above: Performed By: #### 3 024-7, 44234-2, 2777-1, 31071-9, 56215-1, 3051-0, 80751-8, 52726-5 #### [facility] [address] [place] [address] Computer Systems Software Engineer - Rani BRANDONIA [id number] IONIZED CALCIUM- in-house te alesia 02-21-2025 IONIZED CA 1.2 mmol/L Normal 1.1-1.4 [facility] Comment on above: Performed By: #### 3 024-7, 52601-5, 2777-1, 09991-6, 07075-6, 3051-0, 49588-7, 54465-2 #### [facility] [address] [place] [address] Computer Systems Software Engineer - Rani COLES [id number] MAGNESIUMon 02-21-2025 Magnesium [Mass/Vol] 2.0 mg/dL Normal 1.6-2.6 [facility] Comment on above: Performed By: #### 3 024-7, 63662-7, 2777-1, 24098-0, 31125-1, 3051-0, 60729-4, 46483-7 #### [facility] [address] [place] [address] Computer Systems Software Engineer - Rani COLES [id number] PHOSPHORUSon 02-21-2025 Phosphate [Mass/Vol] 3.6 mg/dL Normal 2.5-4.9 [facility] Comment on above: Performed By: #### 3 024-7, 09171-1, 2777-1, 93969-6, 97514-6, 3051-0, 14472-1, 82206-5 #### [facility] [address] [place] [address] Computer Systems Software Engineer - Rani COLES [id number] PTH INTACTon 02-21-2025 Parathyrin.intact [Mass/Vol] 62.0 pg/mL Normal 18.4-80.1 [facility] Comment on above: Performed By: #### 3 024-7, 75452-6, 2777-1, 08562-0, 63272-1, 3051-0, 73272-9, 38292-2 #### [facility] [address] [place] [address] Computer Systems Software Engineer - Rani Urbina Libra AllianceMITCHELL [id number] Parathyrin.intact [Mass/Vol] on 02-21-2025 Calcium [Mass/Vol] 10.1 mg/dL Normal 8.5-10.1 [facility] Comment on above: Performed By: #### 3 024-7, 38593-2, 2777-1, 43582-3, 97432-3, 3051-0, 29678-7, 66356-6 #### [facility] [address] [facility] [place] [address] Computer Systems Software Engineer - Rani COLES [id number] HIP INTACT PTH INTERPRETATION Interpretation Intact PTH Calcium (pg/mL) (mg/dL) Normal 10.0 - 65.0 8.4 - 10.2 Primary Hyperparathyroidism >65.0 >10.2 Secondary Hyperparathyroidism >65.0 <10.2 Non-Parathyroid Hypercalcemia <65.0 >10.2 Hypoparathyroidism <10.2 <8.4 Non-Parathyroid Hypocalcemia 10.0 - 65.0 <8.4 Careful interpretation of the PTH result may be necessary to evaluate the falsely depressed PTH values in patients taking high doses of biotin. Normal [facility] Comment on above: Performed By: #### 3 024-7, 30122-5, 2777-1, 54839-8, 63465-3, 3051-0, 75710-3, 07224-8 #### [facility] [address] [facility] [place] [address] Computer Systems Software Engineer - Rani COLES [id number] TSH DL <= 0.05 mIU/L Qnon TSH Qn 0.334 uIU/mL Low 0.358-3.740 [facility] Comment on above: Performed By: #### 3 024-7, 69391-6, 2777-1, 41091-7, 12057-0, 3051-0, 46783-9, 24653-8 #### [facility] [address] [facility] [place] [address] Computer Systems Software Engineer - Rani COLES [id number] LYME DISEASE AB W/REFL TO BL OT (IGG, IGM)on 01-24-2025 LYME AB SCREEN <0.90 Normal [facility] Comment on above: Result Comment: Inde x Interpretation ----- < 0.90 Negative 0.90-1.09 Equivocal > 1.09 Positive As recommended by the Food and Drug Administration (FDA), all samples with positive or equivocal results in a Borrelia burgdorferi antibody screen will be tested using a blot method. Positive or equivocal screening test results should not be interpreted as truly positive until verified as such using a supplemental assay (e.g., B. burgdorferi blot). The screening test and/or blot for B. burgdorferi antibodies may be falsely negative in early stages of Lyme disease, including the period when erythema migrans is apparent. Performed By: #### 6 646 #### [facility] [address], [address] [place] [address] Computer Systems Software Engineer: Philippe Watt MD No Panel Informationon 01-20 LYME AB SCREEN <0.90 Normal [facility]; [facility] - Microbiology an d Antimicrobial susceptibilityon 10-19-2024 S. pyogenes Ag EIA Ql (Throat) Negative Normal [facility]; [facility]. 25-hydroxyvitamin D [Mass/Vo l]on 08-27-2024 25-hydroxyvitamin D3 [Mass/Vol] 48.6 ng/mL Normal 30.0-100.0 [facility] Comment on above: Performed By: #### 3 024-7, 55542-5, 2777-1, 40734-3, 42331-3, 3051-0, 64513-0, 51055-6 #### [facility] [address] [place] [address] Computer Systems Software Engineer - Rani COLES [id number] HVITD VITAMIN D INTERPRETATION VITAMIN D STATUS RANGE ----- DEFICIENCY <20 ng/mL INSUFFICIENCY 20-30 ng/mL SUFFICIENCY 30-100 ng/mL TOXICITY >100 ng/mL Normal [facility] Comment on above: Performed By: #### 3 024-7, 17363-3, 2777-1, 62297-5, 36864-7, 3051-0, 21514-1, 29146-0 #### [facility] [address] [place] [address] Computer Systems Software Engineer - Rani COLES [id number] BASIC METABOLIC PANELon 08-15 Calcium [Mass/Vol] 10.2 mg/dL High 8.5-10.1 [facility] Comment on above: Performed By: #### 3 024-7, 81325-3, 2777-1, 05437-5, 85858-5, 3051-0, 85346-0, 94758-5 #### [facility] [address] [place] [address] Computer Systems Software Engineer - Rani COLES [id number] Basic metabolic 2000 panelon 08-27-2024 Anion gap [Moles/Vol] 7.0 mmol/L Normal <=15.0 [facility] Comment on above: Performed By: #### 3 024-7, 55285-4, 2777-1, 47062-5, 38129-7, 3051-0, 74344-9, 60226-1 #### [facility] [address] [place] [address] [employer] Systems Software Engineer - Rani COLES [id number] Chloride [Moles/Vol] 107 mmol/L Normal 98-107 [facility] Comment on above: Performed By: #### 3 024-7, 63902-7, 2777-1, 96221-3, 10920-2, 3051-0, 94385-4, 08385-6 #### [facility] [address] [place] [address] Computer Systems Software Engineer - Rani COLES [id number] CO2 [Moles/Vol] 30 mmol/L Normal 21-32 [facility] Comment on above: Performed By: #### 3 024-7, 14243-4, 2777-1, 92645-5, 53616-5, 3051-0, 37242-4, 79512-9 #### [facility] [address] [place] [address] Computer Systems Software Engineer - [facility] [id number] Creatinine [Mass/Vol] 0.84 mg/dL Normal 0.51-0.95 [facility] Comment on above: Performed By: #### 3 024-7, 04507-9, 2777-1, 92026-1, 52979-4, 3051-0, 77709-3, 30878-4 #### [facility] [address] [place] [address] Computer Systems Software Engineer - [facility] [id number] GFR/1.73 sq M.predicted MDRD (S/P/Bld) [Vol rate/Area] mL/min/{1.73_m2} Normal >=60 [facility] Comment on above: Performed By: #### 3 024-7, 15996-0, 2777-1, 92422-6, 13649-4, 3051-0, 98167-3, 47927-9 #### [facility] [address] - [facility] [id number] Glucose [Mass/Vol] 84 mg/dL Normal 74-106 [facility] Comment on above: Performed By: #### 3 024-7, 97310-6, 2777-1, 68588-2, 72534-6, 3051-0, 42534-3, 04748-4 #### [facility] [address] [place] [address] Computer Systems Software Engineer - [facility] [id number] HGFR GLOMERULAR FILTRATIO N RATE INTERPRETATION~The eGFR is calculated using the MDRD equation.~This equation has been validated in patients with chronic kidney disease;~however, it underestimates the GFR in healthy patients with GFR's over 60 mL/min.~The equation is not valid in children under the age of 18.~NOTE: Criteria for Chronic Kidney Disease:~ ~1. Kidney damage for at least three months, as defined~by structural or functional abnormalities of the kidney,~with or without decreased glomerular filtration rate, manifested by either:~* Pathological abnormalities or~* Markers of Kidney damage, including abnormalities in~the composition of the blood or urine or abnormalities in imaging tests.~ ~2. GFR <60 mL/min/1.73 m squared for at least three months, with or without kidney damage.~ Normal [facility] Comment on above: Performed By: #### 3 024-7, 48255-1, 2777-1, 72339-9, 04906-4, 3051-0, 49999-0, 66225-6 #### [facility] [address] [facility] [place] [address] Computer Systems Software Engineer - [facility] [id number] Potassium [Moles/Vol] 4.5 mmol/L Normal 3.5-5.1 [facility] Comment on above: Performed By: #### 3 024-7, 44286-0, 2777-1, 58262-9, 89130-6, 3051-0, 62241-9, 78770-9 #### [facility] [address] [place] [address] Computer Systems Software Engineer - [facility] [id number] Sodium [Moles/Vol] 144 mmol/L Normal 136-145 [facility] Comment on above: Performed By: #### 3 024-7, 42982-2, 2777-1, 22941-8, 69560-0, 3051-0, 64265-8, 52114-3 #### [facility] [address] [place] [address] Computer Systems Software Engineer - Rani COLES [id number] Urea nitrogen [Mass/Vol] 17 mg/dL Normal 7-17 [facility] Comment on above: Performed By: #### 3 024-7, 68450-3, 2777-1, 36400-6, 45477-1, 3051-0, 44007-7, 50876-6 #### [facility] [address] [facility] [address] [facility] [address] [place] [address] Computer Systems Software Engineer - [facility] [id number] CBC panel Auto (Bld)on 08-27 Erythrocyte distribution width (RBC) [Entitic vol] 39.7 fL Normal 36.4-46.3 [facility] Comment on above: Performed By: #### 3 024-7, 46033-4, 2777-1, 13395-7, 20799-7, 3051-0, 67841-9, 60330-0 #### [facility] [address] [place] [address] Computer Systems Software Engineer - Rani COLES [id number] Hematocrit (Bld) [Volume fraction] 39.8 % Normal 37.0-47.0 [facility] Comment on above: Performed By: #### 3 024-7, 00958-3, 2777-1, 94902-2, 56623-4, 3051-0, 18535-5, 69872-6 #### [facility] [address] [place] [address] Computer Systems Software Engineer - Rani COLES [id number] Hemoglobin (Bld) [Mass/Vol] 13.7 g/dL Normal 12.0-16.0 [facility] Comment on above: Performed By: #### 3 024-7, 42921-4, 2777-1, 28913-0, 62942-5, 3051-0, 70272-4, 98025-8 #### [place] [address] [place] [address] Computer Systems Software Engineer - Rani COLES [id number] MCH (RBC) [Entitic mass] 30.0 pg Normal 27.0-31.0 [facility] Comment on above: Performed By: #### 3 024-7, 66348-1, 2777-1, 00808-3, 37823-5, 3051-0, 78085-5, 60647-2 #### [facility] [address] [place] [address] Computer Systems Software Engineer - Rani COLES [id number] MCHC (RBC) [Mass/Vol] 34.4 g/dL Normal 32.0-36.0 [facility] Comment on above: Performed By: #### 3 024-7, 21172-4, 2777-1, 96263-8, 62528-5, 3051-0, 72418-7, 57563-6 #### [facility] [address] [place] [address] Computer Systems Software Engineer - Rani BRANDONIA [id number] MCV (RBC) [Entitic vol] 87.1 fL Normal 80.0-100.0 [facility] Comment on above: Performed By: #### 3 024-7, 77835-2, 2777-1, 35256-3, 73865-9, 3051-0, 51849-5, 47805-8 #### [facility] [address] [place] [address] Computer Systems Software Engineer - Rani BRANDONIA [id number] Platelet mean volume (Bld) [Entitic vol] 10.4 fL Normal 9.0-13.0 [facility] Comment on above: Performed By: #### 3 024-7, 66814-5, 2777-1, 10777-8, 87922-5, 3051-0, 10227-9, 34404-2 #### [place] [address] [place] [address] Computer Systems Software Engineer - Rani BRANDONIA [id number] Platelets (Bld) [#/Vol] 234 10*3/uL Normal 130-400 [facility] Comment on above: Performed By: #### 3 024-7, 15908-5, 2777-1, 89396-8, 22521-7, 3051-0, 20249-0, 44001-6 #### [place] [address] [place] [address] Computer Systems Software Engineer - Rani Urbina CLIA [id number] RBC (Bld) [#/Vol] 4.57 10*6/uL Normal 4.00-6.30 [facility] Comment on above: Performed By: #### 3 024-7, 90686-0, 2777-1, 81877-4, 99935-3, 3051-0, 61874-4, 38627-7 #### [facility] [address] [place] [address] Computer Systems Software Engineer - Rani Urbina CLIA [id number] WBC (Bld) [#/Vol] 4.63 10*3/uL Low 4.80-10.80 [facility] Comment on above: Performed By: #### 3 024-7, 90583-0, 2777-1, 13395-1, 28440-7, 3051-0, 81234-0, 33769-6 #### [facility] [address] [place] [address] Computer Systems Software Engineer - Rani COLES [id number] FREE T3on 08-27-2024 Free T3 [Mass/Vol] 3.20 pg/mL Normal 2.18-3.98 [facility] Comment on above: Performed By: #### 3 024-7, 49493-3, 2777-1, 25372-2, 17851-8, 3051-0, 19916-5, 69909-2 #### [facility] [address] [place] [address] Computer Systems Software Engineer - Rani COLES [id number] FREE T4on 08-27-2024 Free T4 [Mass/Vol] 0.93 ng/dL Normal 0.76-1.46 [facility] Comment on above: Performed By: #### 3 024-7, 19580-2, 2777-1, 33336-8, 72165-0, 3051-0, 21161-6, 07043-3 #### [facility] [address] [place] [address] Computer Systems Software Engineer - Rani COLES [id number] Hepatic function 2000 panelo n 08-27-2024 Albumin [Mass/Vol] 4.1 g/dL Normal 3.4-5.0 [facility] Comment on above: Performed By: #### 3 024-7, 95139-5, 2777-1, 15760-1, 01556-5, 3051-0, 99486-5, 04704-9 #### [facility] [address] [place] [address] Computer Systems Software Engineer - Rani COLES [id number] Albumin/Globulin [Mass ratio] 1.5 {ratio} Normal 1.0-2.2 [facility] Comment on above: Performed By: #### 3 024-7, 34752-0, 2777-1, 11820-4, 00233-8, 3051-0, 64415-1, 91475-1 #### [facility] [address] [place] [address] Computer Systems Software Engineer - Rani COLES [id number] ALP [Catalytic activity/Vol] 88 U/L Normal 50-136 [facility] Comment on above: Performed By: #### 3 024-7, 95251-9, 2777-1, 37673-9, 93867-5, 3051-0, 91325-2, 82839-9 #### [facility] [address] [place] [address] Computer Systems Software Engineer - RaniFormerly [facility] [place] [id number] ALT [Catalytic activity/Vol] 20 U/L Normal 14-59 [facility] Comment on above: Performed By: #### 3 024-7, 14426-7, 2777-1, 85529-2, 83476-3, 3051-0, 56006-8, 34768-3 #### [facility] [address] [place] [address] Computer Systems Software Engineer - [facility] [id number] AST [Catalytic activity/Vol] 20 U/L Normal 15-37 [facility] Comment on above: Performed By: #### 3 024-7, 22847-8, 2777-1, 19104-7, 02677-1, 3051-0, 81135-3, 79317-4 #### [facility] [address] [place] [address] Computer Systems Software Engineer - [facility] Logan[facility] [id number] Bilirubin [Mass/Vol] 0.8 mg/dL Normal 0.2-1.0 [facility] Comment on above: Performed By: #### 3 024-7, 29158-7, 2777-1, 15866-9, 09909-7, 3051-0, 96651-2, 28763-6 #### [facility] [address] [place] [address] Computer Systems Software Engineer - Rani Urbina CLIA [id number] Bilirubin.conjugated [Mass/Vol] 0.2 mg/dL Normal <=0.2 [facility] Comment on above: Performed By: #### 3 024-7, 72024-3, 2777-1, 31134-3, 99814-8, 3051-0, 49371-4, 96053-2 #### [facility] [address] [place] [address] Computer Systems Software Engineer - Rani BRANDONIA [id number] Globulin (S) [Mass/Vol] 2.7 g/dL Normal 2.4-3.8 [facility] Comment on above: Performed By: #### 3 024-7, 54832-1, 2777-1, 88619-8, 66738-5, 3051-0, 56117-2, 30595-7 #### [facility] [address] [place] [address] Computer Systems Software Engineer - Rani Urbina CLIA [id number] Protein [Mass/Vol] 6.8 g/dL Normal 6.4-8.2 [facility] Comment on above: Performed By: #### 3 024-7, 38139-6, 2777-1, 18350-2, 17763-3, 3051-0, 28582-5, 61968-7 #### [facility] [address] [place] [address] Computer Systems Software Engineer - Rani BRANDONIA [id number] MAGNESIUMon 08-27-2024 Magnesium [Mass/Vol] 1.8 mg/dL Normal 1.6-2.6 [facility] Comment on above: Performed By: #### 3 024-7, 74679-3, 2777-1, 26329-7, 94852-2, 3051-0, 93071-9, 08336-6 #### [facility] [address] [place] [address] Computer Systems Software Engineer - Rani Urbian CLIA [id number] PHOSPHORUSon 08-27-2024 Phosphate [Mass/Vol] 3.9 mg/dL Normal 2.5-4.9 [facility] Comment on above: Performed By: #### 3 024-7, 79681-7, 2777-1, 31399-0, 01555-6, 3051-0, 12472-4, 29790-4 #### [facility] [address] [place] [address] Computer Systems Software Engineer - Rani COLES [id number] PTH INTACTon 08-27-2024 Parathyrin.intact [Mass/Vol] 54.0 pg/mL Normal 18.4-80.1 [facility] Comment on above: Performed By: #### 3 024-7, 50948-6, 2777-1, 67036-3, 55619-9, 3051-0, 73935-0, 01251-2 #### [facility] [address] [place] [address] Computer Systems Software Engineer - Rani COLES [id number] Parathyrin.intact [Mass/Vol] on 08-27-2024 [facility] INTACT PTH INTERPRETATION Interpretation Intact PTH Calcium (pg/mL) (mg/dL) Normal 10.0 - 65.0 8.4 - 10.2 Primary Hyperparathyroidism >65.0 >10.2 Secondary Hyperparathyroidism >65.0 <10.2 Non-Parathyroid Hypercalcemia <65.0 >10.2 Hypoparathyroidism <10.2 <8.4 Non-Parathyroid Hypocalcemia 10.0 - 65.0 <8.4 Careful interpretation of the PTH result may be necessary to evaluate the falsely depressed PTH values in patients taking high doses of biotin. Normal [facility] Comment on above: Performed By: #### 3 024-7, 78216-0, 2777-1, 94610-7, 26531-9, 3051-0, 88008-9, 35036-7 #### [facility] [address] [place] [address] Computer Systems Software Engineer - Rani COLES [id number] TSH DL <= 0.05 mIU/L Qnon TSH Qn 9.544 uIU/mL High 0.358-3.740 [facility] Comment on above: Performed By: #### 3 024-7, 87978-8, 2777-1, 68003-1, 72784-5, 3051-0, 14322-7, 08602-9 #### [facility] [address] [place] [address] Computer Systems Software Engineer - Rani COLES [id number] [facility] 05-06-2023 [facility] Telephone (OPTMAN) JENN HINOJOSA ([id number]) 1970 F Date Time Provider Department 05/06/23 DAYLIN GERMAIN II During your visit today, we recorded the following information about you: Yesy Campos 05/06/2023 11:47 AM Signed Patient states she is to report anything out of the ordinary since her surgery. Yesterday she started noticing tiny black specks in her vision. She didn't know if this was an issue she should get checked out or if it was part of her healing. (She was also wondering if the heart had anything to do with what is happening.) Allergies As of Date: 05/06/2023 Noted Allergy Reaction ASA (SALICYLATES) 10/07/2005 4 - Hives CODEINE 10/07/2005 8 - GI Upset Date Reviewed: 04/30/2023 Reviewed by: Марина Gomez OA - Fully Assessed Reason for Visit: Patient Update [1234] Prescriptions as of 03/31/2024 - ARMOUR THYROID 15 mg tablet Take 45 mg by mouth once daily. - levothyroxine (SYNTHROID) 50 mcg tablet Take 50 mcg by mouth once daily. 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] 11/05/2021 Conjunctival laceration, right, initial encount*04/09/2022 History of seasonal allergies [Z88.9] 04/09/2022 Encounter Status:Closed by YESY CAMPOS on 03/31/24 Normal [facility] No Panel Informationon 04-16 JOSE MARIA SCREEN, IFA Negative Normal [facility]; [facility] LYME AB SCREEN <0.90 Normal [facility]; [facility], [facility] RHEUMATOID FACTOR <14 Normal [facility]; [facility], [facility] SED RATE BY MODIFIED WESTERGREN 2 mm/h Normal [facility]; [facility], [facility] Laboratory - Chemistry and C hemistry - challengeon 11-28-2021 Albumin [Mass/Vol] 4.9 g/dL Normal 3.6 - 5.1 g/dL [facility]; [facility], [facility] Albumin/Globulin [Mass ratio] 2.7 {ratio} Abnormal 1.0 - 2.5 [facility]; [facility], [facility] ALP [Catalytic activity/Vol] 56 U/L Normal 37 - 153 U/L [facility]; [employer] [facility], [facility]. ALT [Catalytic activity/Vol] 15 U/L Normal 6 - 29 U/L [facility]; [facility], [facility] AST [Catalytic activity/Vol] 17 U/L Normal 10 - 35 U/L [facility], [facility].; [employer] [facility], [facility] Bilirubin [Mass/Vol] 0.9 mg/dL Normal 0.2 - 1 .2 mg/dL [facility], [facility]; [facility], [facility] Calcium [Mass/Vol] 10.2 mg/dL Normal 8.6 - 10. 4 mg/dL [facility], [facility].; [employer] [facility], [facility] Chloride [Moles/Vol] 104 mmol/L Normal 98 - 11 0 mmol/L [facility], [facility].; [employer] [facility], [facility] Cholesterol [Mass/Vol] 227 mg/dL Abnormal [facility]; [facility], [facility]. Cholesterol in HDL [Mass/Vol] 91 mg/dL Normal [facility].; [facility], [facility] Cholesterol in LDL [Mass/Vol] 122 mg/dL Abnormal [facility].; [facility], [facility]. CO2 [Moles/Vol] 28 mmol/L Normal 20 - 32 mmol/L [facility], [facility].; [facility], [facility] Creatinine [Mass/Vol] 0.90 mg/dL Normal 0.50 - 1.05 mg/dL [facility].; [facility], [facility]. GFR/1.73 sq M.predicted among blacks MDRD (S/P/Bld) [Vol rate/Area] 86 mL/min/{1.73_m2} Normal [facility], [facility] Glucose [Mass/Vol] 83 mg/dL Normal 65 - 99 mg/dL [facility], [facility].; [facility], [facility]. Potassium [Moles/Vol] 4.6 mmol/L Normal 3.5 - 5.3 mmol/L [facility].; [facility], [facility]. Protein [Mass/Vol] 6.7 g/dL Normal 6.1 - 8.1 g/dL [facility], [facility].; [facility], [facility]. Sodium [Moles/Vol] 140 mmol/L Normal 135 - 146 mmol/L [facility], [facility].; [facility], [facility]. Triglyceride [Mass/Vol] 57 mg/dL Normal [facility].; [facility], [facility]. Urea nitrogen [Mass/Vol] 17 mg/dL Normal 7 - 25 mg/dL [facility], [facility].; [facility], [facility] No Panel Informationon 11-28 BUN/CREATININE RATIO NOT APPLICABLE Normal 6 - 22 [facility].; [facility] CHOL/HDLC RATIO 2.5 Normal [facility] [employer] [facility], [facility] eGFR NON-AFR. CITIZEN [place] 75 Normal [facility], [facility].; [facility], [facility] GLOBULIN 1.8 Abnormal 1.9 - 3.7 [facility]; [employer] NON HDL CHOLESTEROL 136 [facility]normal [facility].; [employer] Laboratory - Microbiology an d Antimicrobial susceptibilityon 11-10-2017 FLUAV Ag IA Ql (Throat) Negative [facility].; [employer] Laboratory - Microbiology an d Antimicrobial susceptibilityOrdered By: Stephany Blacna on 09-02-2014 FLUAV Ag IA Ql (Throat) Positive Abnormal [facility].; [employer] [facility] Laboratory - Chemistry and C hemistry - challengeon 04-14-2012 Albumin [Mass/Vol] 5.1 g/dL Normal 3.6 - 5.1 g/dL [facility]; [employer] [facility], [employer] Albumin/Globulin [Mass ratio] 2.3 {ratio} Abnormal 1.0 - 2.1 [facility].; [employer] ALP [Catalytic activity/Vol] 59 U/L Normal 33 - 115 U/L [facility].; [employer]. ALT [Catalytic activity/Vol] 15 U/L Normal 6 - 40 U/L [employer] [facility].; [employer]. Amylase [Catalytic activity/Vol] 62 U/L Normal 21 - 101 U/L [employer] [facility].; [employer]. AST [Catalytic activity/Vol] 17 U/L Normal 10 - 30 U/L [employer] [facility].; [employer] Bilirubin [Mass/Vol] 0.9 mg/dL Normal 0.2 - 1 .2 mg/dL [employer] [facility].; [employer], [employer]. Calcium [Mass/Vol] 10.2 mg/dL Normal 8.6 - 10. 2 mg/dL [employer] [facility], [employer].; [employer], [employer]. Chloride [Moles/Vol] 106 mmol/L Normal 98 - 11 0 mmol/L [employer] [facility].; [employer], [employer]. CO2 [Moles/Vol] 23 mmol/L Normal 21 - 33 mmol/L [facility]: [employer].; [employer], [employer]. Creatinine [Mass/Vol] 0.87 mg/dL Normal 0.50 - 1.10 mg/dL [facility].; [facility], [facility]. GFR/1.73 sq M.predicted among blacks MDRD (S/P/Bld) [Vol rate/Area] 97 {ML/MIN/1.73M2} Normal [facility].; [facility], [facility]. GFR/1.73 sq M.predicted MDRD (S/P/Bld) [Vol rate/Area] 83 {ML/MIN/1.73M2} Normal [facility].; [facility], [facility] Globulin (S) [Mass/Vol] 2.2 g/dL Normal 2.2 - 3.9 g/dL [facility].; [facility], [facility]. Glucose [Mass/Vol] 44 mg/dL Abnormal 65 - 99 mg/dL [facility].; [facility], [facility]. Lipase [Catalytic activity/Vol] 38 U/L Normal 7 - 60 U/L [facility].; [facility], [facility]. Potassium [Moles/Vol] 4.3 mmol/L Normal 3.5 - 5.3 mmol/L [facility].; [facility], [facility]. Protein [Mass/Vol] 7.3 g/dL Normal 6.2 - 8.3 g/dL [facility].; [facility], [facility]. Sodium [Moles/Vol] 140 mmol/L Normal 135 - 146 mmol/L [facility].; [facility], [facility]. TSH Qn 0.29 m[IU]/L Abnormal 0.40 - 4.50 {mIU/L} [facility]. Urea nitrogen [Mass/Vol] 16 mg/dL Normal 7 - 25 mg/dL [facility].; [facility]. Urea nitrogen/Creatinine [Mass ratio] 18.3 mg/mg Normal 6 - 22 [facility].; [facility] [employer] [facility], [facility]. Laboratory - Hematology and Cell countson 04-14-2012 Basophils (Bld) [#/Vol] 10 {Cells}/uL Normal 0 - 200 {Cells}/uL [facility].; [facility] Basophils/100 WBC (Bld) 0 % Normal 0 - 2 % H [facility].; [facility]. Eosinophils (Bld) [#/Vol] 90 {Cells}/uL Normal 15 - 500 {Cells}/uL [facility].; [facility]. Eosinophils/100 WBC (Bld) 1 % Normal 0 - 8 % [facility].; [facility]. Erythrocyte distribution width (RBC) [Ratio] 14.1 % Normal 11.0 - 15.0 % [facility].; [place] [employer] [facility], [facility]. Hematocrit (Bld) [Volume fraction] 39.3 % Normal 35.0 - 45.0 % [facility].; [facility]. Hemoglobin (Bld) [Mass/Vol] 13.4 g/dL Normal 11.7 - 15.5 g/dL [facility].; [facility]. Lymphocytes (Bld) [#/Vol] 1760 {Cells}/uL Normal 850 - 3900 {Cells}/uL [facility].; [place] [employer] [facility], [facility]. Lymphocytes/100 WBC (Bld) 19 % Normal 15 - 49 % [facility].; [facility] [employer], [facility]. MCH (RBC) [Entitic mass] 30.5 pg Normal 27. 0 - 33.0 PG [facility].; [facility] [employer], [facility]. MCHC (RBC) [Mass/Vol] 34.1 g/dL Normal 32.0 - 36.0 g/dL [facility].; [facility] [employer] [facility], [facility]. MCV (RBC) [Entitic vol] 89.6 fL Normal 80.0 - 100.0 fL [place] [employer] [facility], [facility].; [facility] [employer], [facility]. Monocytes (Bld) [#/Vol] 610 {Cells}/uL Normal 20 0 - 950 {Cells}/uL [facility] [employer] [facility].; [place] [employer] Monocytes/100 WBC (Bld) 7 % Normal 0 - 13 % H [facility].; [facility]. Neutrophils (Bld) [#/Vol] 6900 {Cells}/uL Normal 1500 - 7800 {Cells}/uL [facility], [facility].; [facility] [employer], [facility]. Neutrophils/100 WBC (Bld) 74 % Normal 38 - 80 % [facility].; [facility]. Platelets (Bld) [#/Vol] 207 10*3/uL Normal 140 - 400 10*3/uL [facility].; [facility]. RBC (Bld) [#/Vol] 4.39 10*6/uL Normal 3.80 - 5.1 0 10*6/uL [facility].; [facility]. WBC (Bld) [#/Vol] 9.4 10*3/uL Normal 3.8 - 10.8 10*3/uL [facility].; [place] [employer], [facility]. No Panel Information [facility] Vital Signs Date Time Vital Sign Value Performing Clinician Facility 01-20-2025 11:25-0400 Body height 165.1 cm Rhonda Bardales LPN [facility], [facility].; [facility]. 01-20-2025 11:25-0400 Body mass index (BMI) [Ratio] 23.8 kg/m2 Rhonda Bardales LPN [facility], [facility].; [facility]. 01-20-2025 11:25-0400 Body surface area Derived from formula 1.72 m2 Rhonda Bardales LPN [facility].; [facility] [employer], [facility]. 01-20-2025 11:25-0400 Body temperature 97.2 [degF] Rhonda Bardales LPN [facility], [facility].; [employer] [facility]. Comment on above: Method: Tympanic 01-20-2025 11:25-040 Body weight 64.86 kg Rhonda Bardales LPN [facility], [facility].; [facility]. 01-20-2025 11:25-0400 Diastolic blood pressure 83 mm[Hg] Rhonda Bardales LPN [facility], [facility].; [employer], [facility]. Comment on above: Patient Position: Sitting; Cuff Location : Left Arm; Cuff Size: Standard 01-20-2025 11:25-0400 Heart rate 77 /min Rhonda Bardales LPN [facility].; [employer] Comment on above: Pattern: Regular 01-20-2025 11:25-0400 Systolic blood pressure 129 mm[Hg] Rhonda Bardales LPN [facility].; [employer]. Comment on above: Patient Position: Sitting; Cuff Location : Left Arm; Cuff Size: Standard 10-19-2024 10:32-0500 Body height 165.1 cm Arin Patton MA [facility].; [employer]. 10-19-2024 10:32-0500 Body mass index (BMI) [Ratio] 23.65 kg/m2 Arin Patton MA [facility].; [place] [employer] 10-19-2024 10:32-0500 Body surface area Derived from formula 1.71 m2 Arin Patton MA [facility] [employer].; [employer] 10-19-2024 10:32-0500 Body weight 64.47 kg Arin Patton MA [facility].; [employer]. 10-19-2024 10:32-0500 Diastolic blood pressure 74 mm[Hg] Arin Patton MA [facility] [employer].; [employer]. Comment on above: Patient Position: Sitting; Cuff Location : Left Arm; Cuff Size: Standard 10-19-2024 10:32-0500 Heart rate 76 /min Arin Patton MA [facility] [employer].; [employer]. Comment on above: Pattern: Regular 10-19-2024 10:32-0500 Systolic blood pressure 127 mm[Hg] Arin Patton MA [facility] [employer].; [employer]. Comment on above: Patient Position: Sitting; Cuff Location : Left Arm; Cuff Size: Standard 04-16-2023 07:05-0400 Body weight 63.96 kg Uche Goodwin LPN [facility].; [employer]. 04-16-2023 07:05-0400 Diastolic blood pressure 69 mm[Hg] Uche Goodwin LPN [facility].; [employer]. Comment on above: Patient Position: Sitting; Cuff Location : Left Arm; Cuff Size: Standard 04-16-2023 07:05-0400 Heart rate 54 /min Uche Goodwin DESMOND [facility], [employer]. Comment on above: Pattern: Regular 04-16-2023 07:05-0400 Systolic blood pressure 131 mm[Hg] Uche Goodwin DESMOND [facility] [employer], [employer]. Comment on above: Patient Position: Sitting; Cuff Location : Left Arm; Cuff Size: Standard 03-06-2022 11:07-0400 Body height 165.1 cm Lucy Ghotrar [facility], [employer].; [employer], [employer]. 03-06-2022 11:07-0400 Body mass index (BMI) [Ratio] 23.48 kg/m2 Lucy Ghotrar [facility] [employer] [facility], [employer].; [employer], [employer]. 03-06-2022 11:07-0400 Body surface area Derived from formula 1.71 m2 Lucy Ghotrar [facility], [employer].; [employer], [employer]. 03-06-2022 11:07-0400 Body weight 64.01 kg Lucy Ghotrar [facility] [employer] [facility], [employer].; [employer], [employer]. 03-06-2022 11:07-0400 Diastolic blood pressure 69 mm[Hg] Lucy Ghotrar [facility] [employer] [facility], [employer].; [employer], [employer]. Comment on above: Patient Position: Sitting; Cuff Location : Left Arm; Cuff Size: Standard 03-06-2022 11:07-0400 Heart rate 73 /min [facility], [employer]. Comment on above: Pattern: Regular 03-06-2022 11:07-0400 Systolic blood pressure 101 mm[Hg] Lucy [facility]hotrar [facility], [employer].; [employer]. Comment on above: Patient Position: Sitting; Cuff Location : Left Arm; Cuff Size: Standard 11-28-2021 13:47-0400 Body height 165.1 cm Lucy Ghotrar [facility], [employer].; [employer]. 11-28-2021 13:47-0400 Body mass index (BMI) [Ratio] 23.46 kg/m2 Lucy Willams [facility], Inc.; [employer] 11-28-2021 13:47-0400 Body surface area Derived from formula 1.71 m2 Lucy Willams [facility], Inc.; [employer] 11-28-2021 13:47-0400 Body weight 63.96 kg Lucy Willams [facility], Inc.; [employer] 11-28-2021 13:47-0400 Diastolic blood pressure 71 mm[Hg] Lucy Willams [facility], Inc.; [employer] Comment on above: Patient Position: Sitting; Cuff Location : Left Arm; Cuff Size: Standard 11-28-2021 13:47-0400 Heart rate 65 /min Lucy Willams [facility], [employer].; [employer] Comment on above: Pattern: Regular 11-28-2021 13:47-0400 Systolic blood pressure 114 mm[Hg] Lucy Willams [facility], [facility].; [employer] Comment on above: Patient Position: Sitting; Cuff Location : Left Arm; Cuff Size: Standard 03-22-2020 10:00-0400 Body height 165.1 cm Rhonda Bardales LPN [facility].; [employer], [employer]. 03-22-2020 10:00-0400 Body mass index (BMI) [Ratio] 24.13 kg/m2 Rhonda Bardales LPN [facility], [facility].; [employer] 03-22-2020 10:00-0400 Body surface area Derived from formula 1.73 m2 Rhonda Bardales LPN [place] [employer] [facility], [facility].; [employer] [facility]. 03-22-2020 10:00-0400 Body weight 65.77 kg Rhonda Bardales LPN [place] [employer] [facility], [facility].; [employer], [employer]. 03-22-2020 10:00-0400 Diastolic blood pressure 73 mm[Hg] Rhonda Bardales LPN [place] [employer] [facility], [facility].; [employer]. Comment on above: Patient Position: Sitting; Cuff Location : Left Arm; Cuff Size: Standard 03-22-2020 10:00-0400 Heart rate 69 /min Rhonda Bardales DESMOND [facility] [employer]; [employer]. Comment on above: Pattern: Regular 03-22-2020 10:00-0400 Systolic blood pressure 108 mm[Hg] Rhonda Bardales DESMOND [facility] [employer].; [employer]. Comment on above: Patient Position: Sitting; Cuff Location : Left Arm; Cuff Size: Standard 11-10-2017 08:39-0500 Body temperature 99.3 [degF] Elana Fritz PA-C Work Phone: [facility] [employer]; [employer]. 11-10-2017 08:39-0500 Body weight 65.77 kg Elana Fritz PA-C Work Phone: [facility] [employer]; [employer]. 11-10-2017 08:39-0500 Diastolic blood pressure 80 mm[Hg] Elana Fritz PA-C Work Phone: [employer].; [employer]. Comment on above: Patient Position: Sitting; Cuff Location : Left Arm; Cuff Size: Standard 11-10-2017 08:39-0500 Heart rate 83 /min Elana Fritz PA-C Work Phone: [facility] [employer]; [employer]. Comment on above: Pattern: Regular 11-10-2017 08:39-0500 Systolic blood pressure 117 mm[Hg] Elana Fritz PA-C Work Phone: [employer]. Comment on above: Patient Position: Sitting; Cuff Location : Left Arm; Cuff Size: Standard 09-02-2014 08:22-0500 Body temperature 99.7 [degF] Stephany Blanca LPN [facility] [facility].; [employer]. Comment on above: Method: Tympanic 09-02-2014 08:22-0500 Body weight 64.86 kg Stephany Blanca LPN [employer].; [employer] 09-02-2014 08:22-0500 Diastolic blood pressure 71 mm[Hg] Stephany Blanca DESMOND [facility] [employer] [facility] [employer]. Comment on above: Patient Position: Sitting; Cuff Location : Left Arm; Cuff Size: Standard 09-02-2014 08:22-0500 Heart rate 76 /min Stephany Praterjohanna LOGAN [facility] [employer] Comment on above: Pattern: Regular 09-02-2014 08:22-0500 Inhaled oxygen concentration 20 % Stephany Praterjohanna LOGAN [facility] [employer] Comment on above: Room air 09-02-2014 08:22-0500 Inhaled oxygen concentration 21 % Stephany Wejohanna [facility], [employer].; [employer]. Comment on above: Room air 09-02-2014 08:22-0500 SaO2% (BldA) [Mass fraction] 98 % Stephany Praterjohanna [facility] [employer] [facility], [employer].; [employer], [employer]. 09-02-2014 08:22-0500 Systolic blood pressure 113 mm[Hg] Stephany Dickensharperrufus [facility] [employer] [facility], [employer].; [employer]. Comment on above: Patient Position: Sitting; Cuff Location : Left Arm; Cuff Size: Standard 06-28-2013 09:130400 Body height 165.1 cm Elana Fritz PA-C Work Phone: [employer] 06-28-2013 09:13-0400 Body mass index (BMI) [Ratio] 23.71 kg/m2 Elana Fritz PA-C Work Phone: [employer].; [employer] 06-28-2013 09:130400 Body surface area Derived from formula 1.71 m2 Elana Fritz PA-C Work Phone: [employer].; [employer]. 06-28-2013 09:13-0400 Body weight 64.64 kg Elana Fritz PA-C Work Phone: [facility].; [facility] 06-28-2013 09:13-0400 Diastolic blood pressure 81 mm[Hg] Elana Fritz PA-C Work Phone: [facility].; [place] [employer] [facility]: [employer]. Comment on above: Patient Position: Sitting; Cuff Location : Left Arm; Cuff Size: Standard 06-28-2013 09:13-0400 Heart rate 72 /min Elana Fritz PA-C Work Phone: [facility].; [employer] Comment on above: Pattern: Regular 06-28-2013 09:13-0400 Systolic blood pressure 126 mm[Hg] Elana Fritz PA-C Work Phone: [facility].; [employer] Comment on above: Patient Position: Sitting; Cuff Location : Left Arm; Cuff Size: Standard 04-14-2012 10:20-0400 Body height 165.1 cm Keri Hicks [facility].; [place] [employer] [facility]. 04-14-2012 10:20-0400 Body mass index (BMI) [Ratio] 23.96 kg/m2 JingJoseline Hicks [facility].; [facility], [facility]. 04-14-2012 10:20-0400 Body surface area Derived from formula 1.72 m2 [facility] [employer] [facility].; [facility]. 04-14-2012 10:20-0400 Body weight 65.32 kg [facility] Kurt [facility].; [place] [employer] [facility]: [employer]. 04-14-2012 10:20-0400 Diastolic blood pressure 77 mm[Hg] JingJoseline Hicks [facility].; [place] [employer] [facility]: [employer]. Comment on above: Patient Position: Sitting; Cuff Location : Left Arm; Cuff Size: Large 04-14-2012 10:20-0400 Heart rate 74 /min Keri Hicks [facility].; [employer] Comment on above: Pattern: Regular 04-14-2012 10:20-0400 Systolic blood pressure 120 mm[Hg] Keri Hicks LPN [facility] [employer], [employer]. Comment on above: Patient Position: Sitting; Cuff Location : Left Arm; Cuff Size: Large 04-24-2011 11:18-0400 Body height 165.1 cm Keri Hicks DIE TRY OUT WORKER [facility] [employer], [employer]. 04-24-2011 11:18-0400 Body mass index (BMI) [Ratio] 23.3 kg/m2 Keri Hicks [facility] [employer] [facility], [facility].; [employer], [employer]. 04-24-2011 11:18-0400 Body surface area Derived from formula 1.7 m2 Keri Hicks [facility], Inc.; [employer], [employer]. 04-24-2011 11:18-0400 Body weight 63.5 kg Keri Hicks [facility] [employer] [facility], [facility] [employer], [employer]. 04-24-2011 11:18-0400 Diastolic blood pressure 73 mm[Hg] Keri Hicks DIE TRY OUT WORKER [employer] [facility], [employer], [employer]. Comment on above: Patient Position: Sitting; Cuff Location : Left Arm; Cuff Size: Large 04-24-2011 11:18-0400 Heart rate 55 /min Keri Hicks LPN [employer] [facility], [employer], [employer]. Comment on above: Pattern: Regular 04-24-2011 11:18-0400 Systolic blood pressure 111 mm[Hg] Keri Hicks LPN [employer] [facility], [facility]. Comment on above: Patient Position: Sitting; Cuff Location : Left Arm; Cuff Size: Large Encounters Encounter Date Encounter Type Care Provider Facility Start: 07-04-2025 ambulatory Elana Fritz Facility:[facility] Start: 06-29-2025 End: 06-29-2025 ambulatory [facility] Start: 06-21-2025 End: 06-21-2025 Admission to same day surgery center Bela Ty RN [facility] Comment on above: Screen for colon can cer (Primary Dx) Start: 06-01-2025 ambulatory KATLYN MACK MD Faci lity:[facility] Start: 05-14-2025 ambulatory KODAKCLAUDIO [facility] Start: 05-14-2025 End: 05-14-2025 Office outpatient new 20 minutes Larry Causey BABY STROLLER RENTAL CLERK-BROADCAST CHIEF ENGINEER Work Phone: [facility] Comment on above: Cystitis (Primary Dx ); Dysuria Start: 05-14-2025 ambulatory LARRY [facility] Start: 02-21-2025 End: 02-21-2025 ambulatory LUIGI Blanca~[id number] MARIAN BECERRA Facility:[facility] Start: 01-20-2025 End: 01-20-2025 Office outpatient visit 15 minutes Elana Fritz PA-C Work Phone: [employer]. Start: 01-20-2025 Review Elana Fritz P A-C Work Phone: [employer]. Start: 10-19-2024 End: 10-19-2024 Office outpatient visit 15 minutes Elana Fritz PA-C Work Phone: [employer]. Start: 10-19-2024 ambulatory [facility] Start: 08-27-2024 End: 08-27-2024 ambulatory GOODMAN KATLYN MACK MD~[id number] Facility:[facility] Start: 11-06-2023 End: 11-06-2023 ambulatory DANIEL MARC Facility:[facility] Start: 11-06-2023 End: 11-06-2023 Patient encounter procedure Daniel Marc MD Work Phone: Ophthalmology Comment on above: Horseshoe retinal te ar of left eye (Primary Dx) Start: 05-15-2023 End: 05-15-2023 ambulatory REILLY OMALLEY Facility:[facility] Start: 05-15-2023 End: 05-15-2023 Patient encounter procedure Reilly Omalley MD Work Phone: Ophthalmology Comment on above: Horseshoe retinal te ar of left eye (Primary Dx); Ocular contusion, left, initial encounter; Retinal hemorrhage, left eye Start: 05-06-2023 Telephone encounter Daylin Rochaivey OD Work Phone: Optometry Comment on above: Patient Update Start: 04-30-2023 End: 04-30-2023 Office outpatient visit 25 minutes Henrique Kerr MD Work Phone: Ophthalmology Comment on above: Horseshoe retinal te ar of left eye (Primary Dx) Start: 04-30-2023 End: 04-30-2023 ambulatory [facility] Facility:[facility] Start: 04-30-2023 End: 04-30-2023 Patient encounter procedure Daylin Germain OD Work Phone: Optometry Comment on above: [place]hoe retinal te ar of left eye (Primary Dx) Start: 04-16-2023 End: 04-16-2023 ambulatory DAYLIN GERMAIN II Facility:[facility] Start: 04-16-2023 End: 04-16-2023 Patient encounter procedure Daylin Germain OD Work Phone: Optometry Comment on above: Ocular contusion, le ft, initial encounter (Primary Dx); Retinal hemorrhage, left eye Start: 04-16-2023 End: 04-16-2023 Office outpatient visit 15 minutes Elana Fritz PA-C Work Phone: [facility] Start: 04-14-2023 End: 04-14-2023 ambulatory VY GERMAIN Facility:[facility] Start: 04-14-2023 End: 04-14-2023 Patient encounter procedure Vy Germain OD Work Phone: Optometry Comment on above: Vitreous hemorrhage of left eye (HCC) (Primary Dx); Floaters, bilateral Start: 04-16-2022 End: 04-16-2022 Patient encounter procedure Emiliano Fajardo MD Work Phone: Ophthalmology Comment on above: Conjunctival lacerat ion, right, sequela (Primary Dx); History of seasonal allergies Start: 04-09-2022 End: 04-09-2022 Patient encounter procedure Emiliano Fajardo MD Work Phone: Ophthalmology Comment on above: Conjunctival lacerat ion, right, initial encounter (Primary Dx); Unspecified hypothyroidism; History of seasonal allergies Start: 04-09-2022 End: 04-09-2022 Patient encounter procedure Daylin Winnie Marcellus OD Work Phone: Optometry Comment on above: Abrasion of right co njunctiva, subsequent encounter (Primary Dx) Start: 04-08-2022 Telephone encounter Daylin Damon errider OD Work Phone: Optometry Comment on above: Patient Update Start: 04-05-2022 End: 04-05-2022 Patient encounter procedure Daylin Zhou Marcellus OD Work Phone: Optometry Comment on above: Conjunctival abrasio n, right, initial encounter (Primary Dx) Start: 03-12-2022 End: 03-12-2022 Patient encounter procedure Daylin Winnie Marcellus OD Work Phone: Optometry Comment on above: Bacterial conjunctiv itis of both eyes (Primary Dx) Start: 03-06-2022 End: 03-06-2022 Patient encounter procedure Elana Fritz PA-C Work Phone: [employer] Start: 11-28-2021 End: 11-28-2021 Periodic preventive med est patient 40-64yrs Elana Fritz PA-C Work Phone: [employer]. Start: 11-28-2021 End: 11-28-2021 Physical examination Elana Fritz PA-C Work Phone: [employer]; [employer]. Start: 03-22-2020 End: 03-22-2020 Patient encounter procedure Elanadarcy Fritz PA-C Work Phone: [employer] Start: 11-10-2017 End: 11-10-2017 Office outpatient visit 15 minutes Elanadarcy Fritz PA-C Work Phone: [employer] Start: 09-02-2014 End: 09-02-2014 Patient encounter procedure Elana Fritz PA-C Work Phone: [facility] Start: 06-28-2013 End: 06-28-2013 Patient encounter procedure Elana Fritz PA-C Work Phone: [facility] Start: 04-14-2012 End: 04-14-2012 Patient encounter procedure Elana Fritz PA-C Work Phone: [facility] Start: 04-24-2011 End: 04-24-2011 Patient encounter procedure Elana Fritz PA-C Work Phone: [facility] Physical examination Bela Vance RN [facility]; [facility] Procedures Date Procedure Procedure Detail Performing Clinician Start: 05-15-2025 Urnls dip stick/tabl et rgnt non-auto w/o micrscp Larry Causey BABY STROLLER RENTAL CLERK-BROADCAST CHIEF ENGINEER Work Phone: Start: 11-06-2023 Computerized ophthal hank imaging retina Daniel Marc MD Work Phone: Start: 05-15-2023 End: 05-15-2023 Computerized ophthalmic imaging retina Reilly Omalley MD Work Phone: Start: 04-30-2023 Proph rta dtchmnt w/ o drg 1/> sess Henrique Kerr MD Work Phone: Start: 04-30-2023 End: 04-30-2023 Computerized ophthalmic imaging retina Henrique Kerr MD Work Phone: Start: 04-09-2022 End: 04-09-2022 Computerized ophthalmic imaging retina Emiliano Fajardo MD Work Phone: Start: 11-28-2021 End: 10-17-2022 Body mass index documented Elana Nati Dukea n PA-C Work Phone: Start: 11-28-2021 End: 11-28-2021 Depression screening Elana Fritz PA-C Work Phone: Start: 11-28-2021 End: 11-28-2021 Scr dep neg, no plan reqd Elana Damian Lam SWAIN Work Phone: Start: 06-28-2013 End: 06-30-2013 Mri any jt lower extrem w/o contrast matrl Bela Vides Tyron SWAIN Work Phone: Start: 04-24-2011 End: 10-14-2011 Radex foot complete minimum 3 views Luigi Becerra MD Work Phone: Comment on above: attn to left great t oe acl repair left knee Lucy isabel [employer]CH[employer] PRESENTATION 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 Comment on above: Dr Posadas -2006 acl repair left knee Arin Patton MA Comment on above: Dr Katharina Mobley2006 Plan of Treatment Date Care Activity Detail Author Start: 06-29-2025 Subsequent hospital visit by physician 06/29/2025 Hospital Encounter [facility] [address] [place] [address] Cholo Murillo MD [address] [address] [facility] Start: 05-16-2025 Influenza vaccination INFLUENZA VACCINE (#1) [facility] Start: 01-20-2025 Antibody borrelia burgdorferi lyme disease Lyme Titer/EIA, reflex IgM and IgG (29409) Start: 20-Jan-2025 11:33-04:00 Request [facility] Start: 05-16-2024 COVID-19 VACCINE ( season) COVID-19 VACCINE () [facility] Start: 05-16-2024 Influenza vaccination Influenza Vaccine (#1) [facility] Start: 09-15-2023 Behavioral Health Screening Behavioral Health Screening [facility] Start: 09-15-2023 Depression Assessment Depression Assessment [facility] Start: 05-16-2023 Covid-19 Vaccine () Covid-19 Vaccine () [facility] Start: 05-16-2023 Influenza vaccination [facility] Start: 09-15-2022 DEPRESSION ASSESSMENT DEPRESSION ASSESSMENT [facility] Start: 05-16-2022 Influenza vaccination [facility] Start: 2021 Pneumococcal vaccination PNEUMOCOCCAL VACCINE SERIES (1 of 1 - PCV) [facility] Start: 2021 SHINGRIX VACCINE (1 of 2) SHINGRIX VACCINE (1 of 2) [facility] Start: 2021 Zoster vaccine hzv live for subcutaneous use ZOSTER (SHINGLES) VACCINE (1 of 2) [facility] Start: 2016 COLOGUARD (FIT-DNA) COLOGUARD (FIT-DNA) [facility] Start: 2016 Colonoscopy COLONOSCOPY [facility] Start: 2016 COLORECTAL CANCER SCREENING COLORECTAL CANCER SCREENING [facility] Start: [address] COLONOGRAPHY [facility] Start: 2016 DIABETES SCREEN DIABETES SCREEN [facility] Start: 2016 Diabetes Screening Diabetes Screening [facility] Start: 2016 FECAL OCCULT BLOOD FECAL OCCULT BLOOD [facility] Start: 2016 Lipid panel Lipid Screening [facility] Start: 2016 LIPID SCREEN LIPID SCREEN [facility] Start: 2016 Screening for malignant neoplasm of colon [facility] Start: 2016 SIGMOIDOSCOPY SIGMOIDOSCOPY [facility] Start: 01-19-2016 HPV TESTING HPV TESTING [facility] Start: 01-19-2016 PAP TESTING PAP TESTING [facility] Start: 01-19-2016 Screening for malignant neoplasm of cervix [facility] Start: 01-18-2014 Screening for malignant neoplasm of cervix Cervical Cancer Screening [facility] Start: 2011 Lipid panel LIPID SCREENING [facility] Start: 2011 Mammography MAMMOGRAM [facility] Start: 2011 Screening for malignant neoplasm of breast [facility] Start: 1992 Screening for malignant neoplasm of cervix CERVICAL CANCER SCREENING DISCUSSION [facility] Start: 1990 Hepatitis B vaccination HEP B VACCINE (1 of 3 - 19+ 3-dose series) [facility] Start: 1990 Hepatitis B Vaccine (1 of 3 - 19+ 3-dose series) Hepatitis B Vaccine (1 of 3 - 19+ 3-dose series) [facility] Start: 1990 Third diphtheria, tetanus and acellular pertussis (DTaP) vaccination TDAP (ADULT) [facility] Start: 1990 Urine microalbumin profile [facility] Start: 1989 ANNUAL PCP TEAM CHRONIC DISEASE VISIT ANNUAL PCP TEAM CHRONIC DISEASE VISIT [facility] Start: 1989 HEPATITIS C SCREENING HEPATITIS C SCREENING [facility] Start: 1989 Hepatitis C screening Hepatitis C Screening [facility] Start: 1989 HIV SCREENING HIV SCREENING [facility] Start: 1989 HIV screening HIV Screening [facility] Start: 1986 HIV screening HIV SCREENING DISCUSSION [facility] Start: 1983 Adult depression screening assessment DEPRESSION SCREENING [facility] Start: 1976 COVID-19 VACCINE (#1) COVID-19 VACCINE (#1) [facility] Start: 02-25-1972 COVID-19 VACCINE (#1) COVID-19 VACCINE (#1) [facility] Start: 1971 HEPATITIS B (1 of 3 - 3-dose series) HEPATITIS B (1 of 3 - 3-dose series) [facility] Start: 1971 Hepatitis B Vaccine (1 of 3 - 3-dose series) Hepatitis B Vaccine (1 of 3 - 3-dose series) [facility] Start: 1971 Hepatitis C screening HEPATITIS C VIRUS SCREENING [facility] Start: 1971 Tetanus vaccination TETANUS [facility] Colonoscopy flx dx w/collj spec when pfrmd COLONOSCOPY Screen for colon cancer [facility] Payers Date Payer Category Payer Self-pay 2025 Managed Care (unspecified) MMO [id number] 2022 Managed Care PPO (unspecified) [employer] PPO [id number] 2022 Unknown 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 1971 Unknown [id number] 1971 Unknown [id number] 1971 Unknown [id number] 1971 Unknown [id number] 1971 Unknown [id number] Unknown [id number] Social History Date Type Detail Facility Start: 05-15-2023 End: 06-13-2025 Tobacco smoking status NHIS Never smoked tobacco [facility] Start: 03-12-2022 End: 04-30-2023 Alcohol intake Ex-drinker (finding) [facility] Start: 1970 Sex Assigned At Not on file [facility] Start: 03-02-2022 End: 04-16-2022 Exposure to SARS-CoV-2 (event) Not sure [facility] Start: 03-23-2014 End: 04-16-2022 History of Social function [facility] Start: 03-23-2014 End: 04-16-2022 Tobacco use panel [facility] National Score (1-100), lower number is lower risk Not on file [facility] Start: 05-15-2023 End: 06-13-2025 Tobacco use and exposure Smokeless tobacco non-user [facility] Tobacco Use: Tobacco Use: ; N ever smoker. [employer] Female [employer] Work Phone: Tobacco smoking status UTIS Tobacco smoking consumption unknown [facility] Start: 05-14-2025 Sex Female (finding) [facility] Clinical Notes 03-12-2022 to 06-29-2025 Larry Causey APRN-BROADCAST CHIEF ENGINEER - 05/14/2025 10:00 AM Daniel Khan MD - 11/06/2023 9:00 AM Reilly Cavazos MD - 05/15/2023 11:39 AM Henrique Mojica MD - 04/30/2023 1:53 PM EDT Note Date & Type Note Facility 06-29-2025 Note ENDOSCOPY OUTPATIENT PRE-PROCEDURE NOTE Patient Name: Azra Hinojosa MR #: [id number] Indication: Colorectal screening, average risk Brief History: 54-year-old presents for colonoscopy with possible biopsies. No family Struve colon cancer. Frequent episodes of diarrhea. Past Medical History: Past Medical History: Diagnosis Date Diarrhea Hypothyroid Past Surgical History: Procedure Laterality Date ABDOMEN LIMITED PYLORIC STENOSIS US repair 1972 ACL REPAIR Left 2007 HERNIA REPAIR 1992 TONSILLECTOMY Family History Problem Relation Age of Onset Hypertension Mother Skin cancer Mother Cancer Father Diabetes type I Paternal Grandmother Surgical complications Neg Hx Anesthesia problems Neg Hx Colon cancer Neg Hx Social History [1] Allergies: Codeine, Tree nut, and Aspirin Home Medications: Outpatient Medications as of 06/29/2025 Medication Sig levothyroxine (SYNTHROID, LEVOTHROID) 50 MCG tablet Take 1 (one) tablet (50 mcg total) by mouth once daily 1 t ablet 4 days a week the other 3 days 1/2 tablet daily . thyroid (ARMOUR) 15 mg tablet Take 3 (three) tablets (45 mg total) by mouth daily . Review of Systems: The following system(s) were reviewed: GI system reviewed. All other systems were reviewed and are within normal limits. Physical Examination: BP 117/75 Pulse (!) 57 Temp 97.7 degrees F (36.5 degrees C) (Temporal) Resp 12 Ht 5' 5 Wt 65.3 kg (144 lb) SpO2 98% BMI 23.96 kg/m General: NAD; Alert and oriented x3 Lungs: Clear without rales, rhonchi or wheezes; no increased respiratory effort Cardiovascular: RRR; no edema Abdomen: Positive bowel sounds; soft; non tender Skin: No rashes; normal turgor Plan: Will proceed with endoscopic procedure as scheduled. [1] Social History Socioeconomic History Marital status: Tobacco Use Smoking status: Never Smokeless tobacco: Never Substance and Sexual Activity Alcohol use: Yes Comment: seldom Drug use: Never AUTHENTICATED BY CHOLO MURILLO, ON 06/29/2025 09:40:42 [facility] 05-14-2025 History of Presen t illness Narrative See paper charting documented in this encounter [facility] 11-06-2023 History of Presen t illness Narrative Horseshoe tear left eye -S/P Laser retinopexy left eye 04/30/23 -No new tears or breaks on exam -Retina attached -Retinal detachment precautions Posterior vitreous detachment (PVD) left eye -As above Follow Up: Retina as needed I have confirmed and edited as necessary the relevant ophthalmic history, ROS, and exam findings as obtained by others. I have seen and examined this patient. I have discussed the case and the management of this patient's care with the Resident, if applicable. I also have reviewed and agree with the assessment and plan as stated above and agree with all of its relevant components. Daniel Marc MD Vitreoretinal Surgery [facility] documented in this encounter [facility] 11-06-2023 Note HNO ID: [id number] Author: DANIEL MARC MD Service: ? Author Type: Physician Type: Progress Notes Filed: 11/06/2023 09:52 Note Text: Horseshoe tear left eye -S/P Laser retinopexy left eye 04/30/23 -No new tears or breaks on exam -Retina attached -Retinal detachment precautions Posterior vitreous detachment (PVD) left eye -As above Follow Up: Retina as needed I have confirmed and edited as necessary the relevant ophthalmic history, ROS, and exam findings as obtained by others. I have seen and examined this patient. I have discussed the case and the management of this patient's care with the Resident, if applicable. I also have reviewed and agree with the assessment and plan as stated above and agree with all of its relevant components. Daniel Marc MD Vitreoretinal Surgery [facility] 05-15-2023 Note HNO ID: [id number] Author: Reilly Omalley MD Service: ? Author Type: Physician Type: Progress Notes Filed: 05/15/2023 11:41 AM Note Text: Follow up from laser retinopexy No new changes Symptomatic horseshoe tear, LEFT EYE Acute Posterior Vitreous Detachment, LEFT EYE - HST 3335-6093 without significant SRF, some early pigmentation anteriorly - Associated with flashes/floaters OS x2-3 weeks that have improved, preceded by blunt trauma (knuckle) to left eye - Remainder of retina attached on scleral depressed examination > Laser retinopexy OS 04/30/23: Vitreomacular Adhesion, RIGHT EYE - OCT normal today I have confirmed and edited as necessary the relevant ophthalmic history, ROS, and the neuro exam findings as obtained by others. I have seen and examined this patient. I have discussed the case and the management of this patient's care with the Resident/Fellow, if applicable. I also have reviewed and agree with the assessment and plan as stated above and agree with all of its relevant components. Reilly Omalley MD May 15, 2023 11:39 AM [facility] 05-15-2023 History of Presen t illness Narrative Follow up from laser retinopexy No new changes Symptomatic horseshoe tear, LEFT EYE Acute Posterior Vitreous Detachment, LEFT EYE - HST 0515-0495 without significant SRF, some early pigmentation anteriorly - Associated with flashes/floaters OS x2-3 weeks that have improved, preceded by blunt trauma (knuckle) to left eye - Remainder of retina attached on scleral depressed examination > Laser retinopexy OS 04/30/23: Vitreomacular Adhesion, RIGHT EYE - OCT normal today I have confirmed and edited as necessary the relevant ophthalmic history, ROS, and the neuro exam findings as obtained by others. I have seen and examined this patient. I have discussed the case and the management of this patient's care with the Resident/Fellow, if applicable. I also have reviewed and agree with the assessment and plan as stated above and agree with all of its relevant components. Reilly Omalley MD May 15, 2023 11:39 AM documented in this encounter [facility] 05-06-2023 Telephone encounter Note Summary: Update / Question Patient states she is to report anything out of the ordinary since her surgery. Yesterday she started noticing tiny black specks in her vision. She didn't know if this was an issue she should get checked out or if it was part of her healing. (She was also wondering if the heart had anything to do with what is happening.) [facility] 05-06-2023 Miscellaneous Notes Summary: Update / Question Patient states she is to report anything out of the ordinary since her surgery. Yesterday she started noticing tiny black specks in her vision. She didn't know if this was an issue she should get checked out or if it was part of her healing. (She was also wondering if the heart had anything to do with what is happening.) documented in this encounter [facility] 04-30-2023 Note HNO ID: [id number] Author: Henrique Kerr MD Service: ? Author Type: Fellow Type: Progress Notes Filed: 04/30/2023 3:10 PM Note Text: Urgent SDA: 52 year old female seen by Dr. Germain OD today and referred for HST OS. Endorses flashes/floaters for 2-3 weeks in the left eye after mild blunt trauma to the left eye. Symptoms seemed to improve gradually. Symptomatic horseshoe tear, LEFT EYE Acute Posterior Vitreous Detachment, LEFT EYE - HST 2411-3007 without significant SRF, some early pigmentation anteriorly - Associated with flashes/floaters OS x2-3 weeks that have improved, preceded by blunt trauma (knuckle) to left eye - Remainder of retina attached on scleral depressed examination > Laser retinopexy OS today 04/30/23: > R/B/A discussed, patient agrees and written consent obtained > Light activity restrictions for 2 weeks > Strict return precautions given > RTC 2 weeks with any retina provider Vitreomacular Adhesion, RIGHT EYE - Hyaloid down on OCT - Retina attached on scleral depressed examination > RD precautions discussed #[phone] (patient) Henrique Kerr MD Vitreoretinal Surgery Fellow [facility] 04-30-2023 History of Presen t illness Narrative Urgent SDA: 52 year old female seen by Dr. Germain OD today and referred for HST OS. Endorses flashes/floaters for 2-3 weeks in the left eye after mild blunt trauma to the left eye. Symptoms seemed to improve gradually. Symptomatic horseshoe tear, LEFT EYE Acute Posterior Vitreous Detachment, LEFT EYE - HST 2081-0085 without significant SRF, some early pigmentation anteriorly - Associated with flashes/floaters OS x2-3 weeks that have improved, preceded by blunt trauma (knuckle) to left eye - Remainder of retina attached on scleral depressed examination > Laser retinopexy OS today 04/30/23: > R/B/A discussed, patient agrees and written consent obtained > Light activity restrictions for 2 weeks > Strict return precautions given > RTC 2 weeks with any retina provider Vitreomacular Adhesion, RIGHT EYE - Hyaloid down on OCT - Retina attached on scleral depressed examination > RD precautions discussed #[phone] (patient) Henrique Kerr MD Vitreoretinal Surgery Fellow [facility] documented in this encounter [facility] 04-30-2023 Instructions Daylin Germain II, OD - 04/30/2023 9:37 AM EDT Assessment and Plan H33.312 Horseshoe retinal tear of left eye (primary encounter diagnosis) Comment: Patient to see Dr. Kerr at [facility] at 12:30 pm today. NPO until seen. I have confirmed and edited as necessary the relevant ophthalmic history, ROS, and the neuro exam findings as obtained by others. I have seen and examined Jenn Hinojosa. I have discussed the case and the management of this patient's care with the Resident/Fellow, if applicable. I also have reviewed and agree with the assessment and plan as stated above and agree with all of its relevant components. Daylin Germain II OD documented in this encounter [facility] 04-30-2023 Note HNO ID: [id number] Author: Daylin Germain II, OD Service: ? Author Type: PRESCHOOL SUBSTITUTE TEACHER Type: Progress Notes Filed: 04/30/2023 9:37 AM Note Text: Assessment and Plan H33.312 Horseshoe retinal tear of left eye (primary encounter diagnosis) Comment: Patient to see Dr. Kerr at [facility] at 12:30 pm today. NPO until seen. I have confirmed and edited as necessary the relevant ophthalmic history, ROS, and the neuro exam findings as obtained by others. I have seen and examined Jenn Hinojosa. I have discussed the case and the management of this patient's care with the Resident/Fellow, if applicable. I also have reviewed and agree with the assessment and plan as stated above and agree with all of its relevant components. Daylin Germain II, OD [facility] 04-30-2023 History of Presen t illness Narrative Assessment and Plan H33.312 Horseshoe retinal tear of left eye (primary encounter diagnosis) Comment: Patient to see Dr. Kerr at [facility] at 12:30 pm today. NPO until seen. I have confirmed and edited as necessary the relevant ophthalmic history, ROS, and the neuro exam findings as obtained by others. I have seen and examined Jenn Hinojosa. I have discussed the case and the management of this patient's care with the Resident/Fellow, if applicable. I also have reviewed and agree with the assessment and plan as stated above and agree with all of its relevant components. Daylin Germain II OD documented in this encounter [facility] 04-16-2023 Instructions Daylin Germain II, OD - 04/16/2023 11:14 AM EDT Assessment and Plan S05.12XA Ocular contusion, left, initial encounter (primary encounter diagnosis) H35.62 Retinal hemorrhage, left eye Comment: Area of blot hemorrhages with mild retinal edema noted in temporal periphery OS. No retinal tears or detachment found. Vitreal floaters with possible trace vitreous hemorrhage OS. Discussed expected resolution of symptoms along with symptoms of retinal tear/detachment. Recheck in 2-3 weeks or sooner if needed. I have confirmed and edited as necessary the relevant ophthalmic history, ROS, and the neuro exam findings as obtained by others. I have seen and examined Jenn Hinojosa. I have discussed the case and the management of this patient's care with the Resident/Fellow, if applicable. I also have reviewed and agree with the assessment and plan as stated above and agree with all of its relevant components. Daylin Germain II, OD documented in this encounter [facility] 04-16-2023 Note HNO ID: [id number] Author: Daylin Germain II, OD Service: ? Author Type: PRESCHOOL SUBSTITUTE TEACHER Type: Progress Notes Filed: 04/16/2023 11:14 AM Note Text: Assessment and Plan S05.12XA Ocular contusion, left, initial encounter (primary encounter diagnosis) H35.62 Retinal hemorrhage, left eye Comment: Area of blot hemorrhages with mild retinal edema noted in temporal periphery OS. No retinal tears or detachment found. Vitreal floaters with possible trace vitreous hemorrhage OS. Discussed expected resolution of symptoms along with symptoms of retinal tear/detachment. Recheck in 2-3 weeks or sooner if needed. I have confirmed and edited as necessary the relevant ophthalmic history, ROS, and the neuro exam findings as obtained by others. I have seen and examined Jenn Hinojosa. I have discussed the case and the management of this patient's care with the Resident/Fellow, if applicable. I also have reviewed and agree with the assessment and plan as stated above and agree with all of its relevant components. Daylin Germain II, OD [facility] 04-16-2023 History of Presen t illness Narrative Assessment and Plan S05.12XA Ocular contusion, left, initial encounter (primary encounter diagnosis) H35.62 Retinal hemorrhage, left eye Comment: Area of blot hemorrhages with mild retinal edema noted in temporal periphery OS. No retinal tears or detachment found. Vitreal floaters with possible trace vitreous hemorrhage OS. Discussed expected resolution of symptoms along with symptoms of retinal tear/detachment. Recheck in 2-3 weeks or sooner if needed. I have confirmed and edited as necessary the relevant ophthalmic history, ROS, and the neuro exam findings as obtained by others. I have seen and examined Jenn Hinojosa. I have discussed the case and the management of this patient's care with the Resident/Fellow, if applicable. I also have reviewed and agree with the assessment and plan as stated above and agree with all of its relevant components. Daylin Germain II, OD documented in this encounter [facility] 04-14-2023 Instructions Vy Germain OD - 04/14/2023 8:32 AM EDT ASSESSMENT/PLAN: 1. Vitreous hemorrhage of left eye (HCC) - ICD9: 379.23, ICD10: H43.12 (primary diagnosis) 2. Floaters, bilateral - ICD9: 379.24, ICD10: H43.393 Signs and symptoms of a retinal tear/detachment (flashes, floaters or change in peripheral vision) were reviewed with the patients. Patient understands they should return or call our office immediately if any of theses symptoms present. Return in 3 weeks. documented in this encounter [facility] 04-14-2023 Note HNO ID: [id number] Author: Vy Germain OD Service: ? Author Type: PRESCHO[employer] SUBSTITUTE TEACHER Type: Progress Notes Filed: 04/16/2023 10:45 AM Note Text: ASSESSMENT/PLAN: 1. Retinal hemorrhage, left H35.62 (primary diagnosis) 2. Floaters, bilateral - ICD9: 379.24, ICD10: H43.393 Signs and symptoms of a retinal tear/detachment (flashes, floaters or change in peripheral vision) were reviewed with the patients. Patient understands they should return or call our office immediately if any of theses symptoms present. Return in 3 weeks. Vy Germain, OD I have confirmed and edited as necessary the relevant ophthalmic history, ROS, and the neuro exam findings as obtained by others. [facility] 04-14-2023 History of Presen t illness Narrative ASSESSMENT/PLAN: 1. Vitreous hemorrhage of left eye (HCC) - ICD9: 379.23, ICD10: H43.12 (primary diagnosis) 2. Floaters, bilateral - ICD9: 379.24, ICD10: H43.393 Signs and symptoms of a retinal tear/detachment (flashes, floaters or change in peripheral vision) were reviewed with the patients. Patient understands they should return or call our office immediately if any of theses symptoms present. Return in 3 weeks. Vy Germain, OD I have confirmed and edited as necessary the relevant ophthalmic history, ROS, and the neuro exam findings as obtained by others. documented in this encounter [facility] 04-16-2022 Instructions Emiliano Fajardo MD - 04/16/2022 11:33 AM EDT Discontinue: Polytrim and FML eyedrops. Patient to see Dr. Germain for her yearly exam. If you have any questions please contact our office at [phone]. After office hours or on the weekend, please call Dr. Fajardo on his cell phone at [phone]. documented in this encounter [facility] 04-16-2022 History of Presen t illness Narrative ASSESSMENT/PLAN: 1. Conjunctival laceration, right, sequela - ICD9: 906.0, ICD10: S05.31XS (primary diagnosis) -healed well. Discontinue: Polytrim and FML eyedrops. Patient to see Dr. Germain for her yearly exam. 2. History of seasonal allergies - ICD9: V15.09, ICD10: Z88.9 I have confirmed and edited as necessary the relevant ophthalmic history, review of systems, surgical history, and ophthalmological examination findings as obtained by the ophthalmic technical staff. I have seen and examined Jenn Hinojosa. I have discussed the examination findings, diagnosis, and treatment options with Jenn Hinojosa and/or her family. I have also reviewed and agree with the assessment and plan as stated above and agree with all its relevant components. I gave the patient the opportunity to ask questions about the findings, diagnosis, and treatment options. Emiliano Fajardo MD documented in this encounter [facility] 04-09-2022 Instructions Emiliano Fajardo MD - 04/09/2022 1:19 PM EDT Continue: Current Ophthalmic Meds trimethoprim-polymyxin (POLYTRIM) 10,000 unit- 1 mg/mL ophthalmic solution Use 1 Drop in the right eye four times daily. Begin: Current Ophthalmic Meds fluorometholone (FML LIQUID FILM) 0.1 % ophthalmic suspension Use 1 Drop in the right eye four times daily. If you have any questions please contact our office at [phone]. After office hours or on the weekend, please call Dr. Fajardo on his cell phone at [phone]. documented in this encounter [facility] 04-09-2022 History of Presen t illness Narrative ASSESSMENT/PLAN: 1. Conjunctival laceration, right, initial encounter - ICD9: 871.4, ICD10: S05.31XA (primary diagnosis) Continue: Current Ophthalmic Meds trimethoprim-polymyxin (POLYTRIM) 10,000 unit- 1 mg/mL ophthalmic solution Use 1 Drop in the right eye four times daily for 5 days. Add: Current Ophthalmic Meds fluorometholone (FML LIQUID FILM) 0.1 % ophthalmic suspension Use 1 Drop in the right eye four times daily. 2. Unspecified hypothyroidism - ICD9: 244.9, ICD10: E03.9 3. History of seasonal allergies - ICD9: V15.09, ICD10: Z88.9 -continue care with PCP I have confirmed and edited as necessary the relevant ophthalmic history, review of systems, surgical history, and ophthalmological examination findings as obtained by the ophthalmic technical staff. I have seen and examined Jenn Hinojosa. I have discussed the examination findings, diagnosis, and treatment options with Jenn Hinojosa and/or her family. I have also reviewed and agree with the assessment and plan as stated above and agree with all its relevant components. I gave the patient the opportunity to ask questions about the findings, diagnosis, and treatment options. Emiliano Fajardo MD documented in this encounter [facility] 04-09-2022 Instructions Daylin Germain II, OD - 04/09/2022 9:49 AM EDT Assessment and Plan S05.01XD Abrasion of right conjunctiva, subsequent encounter (primary encounter diagnosis) Comment: Abrasion persists with increased edema in area. No FB found. Consult Dr. Fajardo later today. I have confirmed and edited as necessary the relevant ophthalmic history, ROS, and the neuro exam findings as obtained by others. I have seen and examined Jenn Hinojosa. I have discussed the case and the management of this patient's care with the Resident/Fellow, if applicable. I also have reviewed and agree with the assessment and plan as stated above and agree with all of its relevant components. Daylin Germain II, OD documented in this encounter [facility] 04-09-2022 History of Presen t illness Narrative Assessment and Plan S05.01XD Abrasion of right conjunctiva, subsequent encounter (primary encounter diagnosis) Comment: Abrasion persists with increased edema in area. No FB found. Consult Dr. Fajardo later today. I have confirmed and edited as necessary the relevant ophthalmic history, ROS, and the neuro exam findings as obtained by others. I have seen and examined Jenn Hinojosa. I have discussed the case and the management of this patient's care with the Resident/Fellow, if applicable. I also have reviewed and agree with the assessment and plan as stated above and agree with all of its relevant components. Daylin Germain II, OD documented in this encounter [facility] 04-05-2022 Instructions Daylin Germain II, OD - 04/05/2022 10:36 AM EDT Assessment and Plan S05.01XA Conjunctival abrasion, right, initial encounter (primary encounter diagnosis) Comment: Wound cleaned. Start use of Polytrim 1 gt right eye four times a day X 5 days. No intraocular involvement found. Recheck as needed. Instruct patient to immediately report any change in condition outside of expected and discussed symptoms. I have confirmed and edited as necessary the relevant ophthalmic history, ROS, and the neuro exam findings as obtained by others. I have seen and examined Jenn Hinojosa. I have discussed the case and the management of this patient's care with the Resident/Fellow, if applicable. I also have reviewed and agree with the assessment and plan as stated above and agree with all of its relevant components. Daylin Germain II, OD documented in this encounter [facility] 04-05-2022 History of Presen t illness Narrative Assessment and Plan S05.01XA Conjunctival abrasion, right, initial encounter (primary encounter diagnosis) Comment: Wound cleaned. Start use of Polytrim 1 gt right eye four times a day X 5 days. No intraocular involvement found. Recheck as needed. Instruct patient to immediately report any change in condition outside of expected and discussed symptoms. I have confirmed and edited as necessary the relevant ophthalmic history, ROS, and the neuro exam findings as obtained by others. I have seen and examined Jenn Hinojosa. I have discussed the case and the management of this patient's care with the Resident/Fellow, if applicable. I also have reviewed and agree with the assessment and plan as stated above and agree with all of its relevant components. Daylin Germain II, OD documented in this encounter [facility] 03-12-2022 Instructions Daylin Germain II, OD - 03/12/2022 2:12 PM EDT Assessment and Plan H10.9, B96.89 Bacterial conjunctivitis of both eyes (primary encounter diagnosis) Comment: R>>L. Recommend start use of Maxitrol suspension 1 gt both eyes four times a day X 1 week. Ocusoft lid scrubs daily. Recheck as needed. Instruct patient to immediately report any change in condition outside of expected and discussed symptoms. I have confirmed and edited as necessary the relevant ophthalmic history, ROS, and the neuro exam findings as obtained by others. I have seen and examined Jenn Hinojosa. I have discussed the case and the management of this patient's care with the Resident/Fellow, if applicable. I also have reviewed and agree with the assessment and plan as stated above and agree with all of its relevant components. Daylin Germain II, FREDDY documented in this encounter [facility] 03-12-2022 History of Presen t illness Narrative Assessment and Plan H10.9, B96.89 Bacterial conjunctivitis of both eyes (primary encounter diagnosis) Comment: R>>L. Recommend start use of Maxitrol suspension 1 gt both eyes four times a day X 1 week. Ocusoft lid scrubs daily. Recheck as needed. Instruct patient to immediately report any change in condition outside of expected and discussed symptoms. I have confirmed and edited as necessary the relevant ophthalmic history, ROS, and the neuro exam findings as obtained by others. I have seen and examined Jenn Hinojosa. I have discussed the case and the management of this patient's care with the Resident/Fellow, if applicable. I also have reviewed and agree with the assessment and plan as stated above and agree with all of its relevant components. Daylin Germain II, OD documented in this encounter [facility] Evaluation note Diagnosis Bacterial conjunctivitis of both eyes- Primary [facility] Diagnosis Conjunctival abrasion, right, initial encounter- Primary [facility] Diagnosis Abrasion of right conjunctiva, subsequent encounter- Primary [facility] Diagnosis Conjunctival laceration, right, initial encounter- Primary Unspecified hypothyroidism History of seasonal allergies Other allergy, other than to medicinal agents [facility] Diagnosis Conjunctival laceration, right, sequela- Primary History of seasonal allergies Other allergy, other than to medicinal agents [facility] Diagnosis Vitreous hemorrhage of left eye (HCC)- Primary Vitreous hemorrhage Floaters, bilateral [facility] Diagnosis Ocular contusion, left, initial encounter- Primary Retinal hemorrhage, left eye Retinal hemorrhage [facility] Diagnosis Horseshoe retinal tear of left eye- Primary Horseshoe tear of retina without detachment [facility] Diagnosis H[place]hoe retinal tear of left eye- Primary Horseshoe tear of retina without detachment [facility] Diagnosis Horseshoe retinal tear of left eye- Primary Horseshoe tear of retina without detachment Ocular contusion, left, initial encounter Retinal hemorrhage, left eye Retinal hemorrhage [facility] Diagnosis Horseshoe retinal tear of left eye- Primary Horseshoe tear of retina without detachment [facility] Diagnosis Cystitis- Primary Cystitis, unspecified Dysuria [facility] Screen for colon cancer- Primary Special screening for malignant neoplasms, colon documented in this encounter [facility] Medications Administered Section Active Administered Medications - up to 3 most recent administrations Medication Order MAR Action Action Date Dose Rate Site fluorescein-benoxinate 0.25-0.4 % 1 Drop (FLURESS) 1 Drop, BOTH EYES, DIRECTED, Starting on Fri03/12/22 at 1430, Until Fri03/13/22 at 0229, Administer for applanation tonometry. In the event of a Fluress shortage, administer [place]-Fluor 1 drop into both eyes as directed for applanation tonometry Given 03/12/2022 2:30 PM EDT 1 Drop Active Administered Medications - up to 3 most recent administrations Medication Order MAR Action Action Date Dose Rate Site fluorescein-benoxinate 0.25-0.4 % 1 Drop (FLURESS) 1 Drop, RIGHT EYE, DIRECTED, Starting on Fri04/05/22 at 1030, Until Fri04/05/22 at 2229, Administer for applanation tonometry. In the event of a Fluress shortage, administer [place]-Fluor 1 drop into the right eye as directed for applanation tonometry Given 04/05/2022 10:30 AM EDT 1 Drop PHENYLephrine 2.5 % 1 Drop (AK-DILATE, STEPHANIE-SYNEPHRINE) 1 Drop, RIGHT EYE, DIRECTED, Starting on Fri04/05/22 at 1030, Until Fri04/05/22 at 2229, Administer for dilation PROTECT FROM LIGHT Given 04/05/2022 10:30 AM EDT 1 Drop tropicamide 1 % 1 Drop (MYDRIACYL) 1 Drop, BOTH EYES, DIRECTED, Starting on Fri04/05/22 at 1030, Until Fri04/05/22 at 2229, Administer for dilation Given 04/05/2022 10:30 AM EDT 1 Drop Active Administered Medications - up to 3 most recent administrations Medication Order MAR Action Action Date Dose Rate Site fluorescein-benoxinate 0.25-0.4 % 1 Drop (FLURESS) 1 Drop, RIGHT EYE, DIRECTED, Starting on Fri04/09/22 at 1000, Until Fri04/09/22 at 2159, Administer for applanation tonometry. In the event of a Fluress shortage, administer [place]-Fluor 1 drop into the right eye as directed for applanation tonometry Given 04/09/2022 10:00 AM EDT 1 Drop Active Administered Medications - up to 3 most recent administrations Medication Order MAR Action Action Date Dose Rate Site fluorescein-benoxinate 0.25-0.4 % 1 Drop (FLURESS) 1 Drop, BOTH EYES, DIRECTED, Starting on Fri04/09/22 at 1330, Until Fri04/10/22 at 0129, Administer for applanation tonometry. In the event of a Fluress shortage, administer [place]-Fluor 1 drop into both eyes as directed for applanation tonometry Given 04/09/2022 1:30 PM EDT 1 Drop PHENYLephrine 2.5 % 1 Drop (AK-DILATE, STEPHANIE-SYNEPHRINE) 1 Drop, BOTH EYES, DIRECTED, Starting on Fri04/09/22 at 1330, Until Fri04/10/22 at 0129, Administer for dilation PROTECT FROM LIGHT Given 04/09/2022 1:30 PM EDT 1 Drop proparacaine 0.5 % 1 Drop (ALCAINE) 1 Drop, BOTH EYES, DIRECTED, Starting on Fri04/09/22 at 1330, Until Fri04/10/22 at 0129, Administer for pneumo tonometry, tonopen tonometry, or pachymetry. In the event of a proparacaine shortage, administer tetracaine 0.5% ophthalmic drops 1 drop in the left eye as directed for pneumo tonometry, tonopen tonometry, or pachymetry Given 04/09/2022 1:30 PM EDT 1 Drop tropicamide 1 % 1 Drop (MYDRIACYL) 1 Drop, BOTH EYES, DIRECTED, Starting on Fri04/09/22 at 1330, Until Fri04/10/22 at 0129, Administer for dilation Given 04/09/2022 1:30 PM EDT 1 Drop Inactive Administered Medications - up to 3 most recent administrations Medication Order MAR Action Action Date Dose Rate Site PHENYLephrine 2.5 % 1 Drop (AK-DILATE, STEPHANIE-SYNEPHRINE) 1 Drop, BOTH EYES, ONCE, 1 dose, On Fri04/14/23 at 0800, FOR OPHTHALMIC USE ONLY PROTECT FROM LIGHT Given 04/14/2023 8:00 AM EDT 1 Drop tropicamide 1 % 1 Drop (MYDRIACYL) 1 Drop, BOTH EYES, ONCE, 1 dose, On Fri04/14/23 at 0800, FOR THE EYE Given 04/14/2023 8:00 AM EDT 1 Drop Active Administered Medications - up to 3 most recent administrations Medication Order MAR Action Action Date Dose Rate Site PHENYLephrine 2.5 % 1 Drop (AK-DILATE, STEPHANIE-SYNEPHRINE) 1 Drop, LEFT EYE, DIRECTED, Starting on Fri04/16/23 at 1000, Until Fri04/16/23 at 2158, Administer for dilation PROTECT FROM LIGHT Given 04/16/2023 10:00 AM EDT 1 Drop tropicamide 1 % 1 Drop (MYDRIACYL) 1 Drop, LEFT EYE, DIRECTED, Starting on Fri04/16/23 at 1000, Until Fri04/16/23 at 2158, Administer for dilation Given 04/16/2023 10:00 AM EDT 1 Drop Active Administered Medications - up to 3 most recent administrations Medication Order MAR Action Action Date Dose Rate Site PHENYLephrine 2.5 % 1 Drop (AK-DILATE, STEPHANIE-SYNEPHRINE) 1 Drop, BOTH EYES, DIRECTED, Starting on Fri04/30/23 at 1000, Until Fri04/30/23 at 2158, Administer for dilation PROTECT FROM LIGHT Given 04/30/2023 10:00 AM EDT 1 Drop tropicamide 1 % 1 Drop (MYDRIACYL) 1 Drop, BOTH EYES, DIRECTED, Starting on Fri04/30/23 at 1000, Until Fri04/30/23 at 2158, Administer for dilation Given 04/30/2023 10:00 AM EDT 1 Drop Inactive Administered Medications - up to 3 most recent administrations Medication Order MAR Action Action Date Dose Rate Site fluorescein-benoxinate 0.25-0.4 % 1 Drop (FLURESS) 1 Drop, BOTH EYES, DIRECTED, Starting on Fri04/30/23 at 0930, Until Fri04/30/23 at 2128, Administer for applanation tonometry. In the event of a Fluress shortage, administer [place]-Fluor 1 drop into both eyes as directed for applanation tonometry Given 04/30/2023 9:30 AM EDT 1 Drop PHENYLephrine 2.5 % 1 Drop (AK-DILATE, STEPHANIE-SYNEPHRINE) 1 Drop, BOTH EYES, DIRECTED, Starting on Fri04/30/23 at 0930, Until Fri04/30/23 at 2128, Administer for dilation PROTECT FROM LIGHT Given 04/30/2023 9:30 AM EDT 1 Drop proparacaine 0.5 % 1 Drop (ALCAINE) 1 Drop, BOTH EYES, DIRECTED, Starting on Fri04/30/23 at 0930, Until Fri04/30/23 at 2128, Administer for pneumo tonometry, tonopen tonometry, or pachymetry. In the event of a proparacaine shortage, administer tetracaine 0.5% ophthalmic drops 1 drop in both eyes as directed for pneumo tonometry, tonopen tonometry, or pachymetry Given 04/30/2023 9:30 AM EDT 1 Drop tropicamide 1 % 1 Drop (MYDRIACYL) 1 Drop, BOTH EYES, DIRECTED, Starting on Fri04/30/23 at 0930, Until Fri04/30/23 at 2129, Administer for dilation Given 04/30/2023 9:30 AM EDT 1 Drop Active Administered Medications - up to 3 most recent administrations Medication Order MAR Action Action Date Dose Rate Site fluorescein-benoxinate 0.25-0.4 % 1 Drop (FLURESS) 1 Drop, BOTH EYES, DIRECTED, Starting on Kiara 05/15/23 at 1030, Until Kiara 05/15/23 at 2229, Administer for applanation tonometry. In the event of a Fluress shortage, administer [place]-Fluor 1 drop into both eyes as directed for applanation tonometry Given 05/15/2023 10:30 AM EDT 1 Drop PHENYLephrine 2.5 % 1 Drop (AK-DILATE, STEPHANIE-SYNEPHRINE) 1 Drop, BOTH EYES, DIRECTED, Starting on Kiara 05/15/23 at 1030, Until Kiara 05/15/23 at 2229, Administer for dilation PROTECT FROM LIGHT Given 05/15/2023 10:30 AM EDT 1 Drop proparacaine 0.5 % 1 Drop (ALCAINE) 1 Drop, BOTH EYES, DIRECTED, Starting on Kiara 05/15/23 at 1030, Until Kiara 05/15/23 at 2229, Administer for pneumo tonometry, tonopen tonometry, or pachymetry. In the event of a proparacaine shortage, administer tetracaine 0.5% ophthalmic drops 1 drop in both eyes as directed for pneumo tonometry, tonopen tonometry, or pachymetry Given 05/15/2023 10:30 AM EDT 1 Drop tropicamide 1 % 1 Drop (MYDRIACYL) 1 Drop, BOTH EYES, DIRECTED, Starting on Fri05/15/23 at 1030, Until Kiara 05/15/23 at 2229, Administer for dilation Given 05/15/2023 10:30 AM EDT 1 Drop Summary Purpose Family History No Family History Records Found Cancer Status:Active Comments:Father. at age 65 Diabetes Mellitus Type I Status:Active Comment s:Paternal Grandmother. Hypertension Status:Active Comments:Mother. Skin Cancer Status:Active Comments:Mother. Cancer Status:Active Comments:Father. at age 65 Diabetes Mellitus Type I Status:Active Comment s:Paternal Grandmother. Hypertension Status:Active Comments:Mother. Skin Cancer Status:Active Comments:Mother. Cancer Status:Active Comments:Father. at age 65 Diabetes Mellitus Type I Status:Active Comment s:Paternal Grandmother. Hypertension Status:Active Comments:Mother. Skin Cancer Status:Active Comments:Mother. Cancer Status:Active Comments:Father. at age 65 Diabetes Mellitus Type I Status:Active Comment s:Paternal Grandmother. Hypertension Status:Active Comments:Mother. Skin Cancer Status:Active Comments:Mother. Advance Directives No Advanced Directives Records FoundNo Advanced Directives Records FoundNo Advanced Directives Records FoundNo Advanced Directives Records FoundNo Advanced Directives Records FoundNo Advanced Directives Records FoundNo Advanced Directives Records FoundNo Advanced Directives Records Found Additional Source Comments Source Comments (unrecognize d section and content) In the event this informatio n is protected by the Federal Confidentiality of Alcohol and Drug Abuse Patient Records regulations: The Federal rules restrict any use of the information to criminally investigate or prosecute any alcohol or drug abuse patient.[facility] the event this information is protected by the Federal Confidentiality of Alcohol and Drug Abuse Patient Records regulations: The Federal rules restrict any use of the information to criminally investigate or prosecute any alcohol or drug abuse patient.[facility] the event this information is protected by the Federal Confidentiality of Alcohol and Drug Abuse Patient Records regulations: The Federal rules restrict any use of the information to criminally investigate or prosecute any alcohol or drug abuse patient.[facility] the event this information is protected by the Federal Confidentiality of Alcohol and Drug Abuse Patient Records regulations: The Federal rules restrict any use of the information to criminally investigate or prosecute any alcohol or drug abuse patient.[facility] the event this information is protected by the Federal Confidentiality of Alcohol and Drug Abuse Patient Records regulations: The Federal rules restrict any use of the information to criminally investigate or prosecute any alcohol or drug abuse patient.[facility] the event this information is protected by the Federal Confidentiality of Alcohol and Drug Abuse Patient Records regulations: The Federal rules restrict any use of the information to criminally investigate or prosecute any alcohol or drug abuse patient.[facility] the event this information is protected by the Federal Confidentiality of Alcohol and Drug Abuse Patient Records regulations: The Federal rules restrict any use of the information to criminally investigate or prosecute any alcohol or drug abuse patient.[facility] the event this information is protected by the Federal Confidentiality of Alcohol and Drug Abuse Patient Records regulations: The Federal rules restrict any use of the information to criminally investigate or prosecute any alcohol or drug abuse patient.[facility] the event this information is protected by the Federal Confidentiality of Alcohol and Drug Abuse Patient Records regulations: The Federal rules restrict any use of the information to criminally investigate or prosecute any alcohol or drug abuse patient.[facility] the event this information is protected by the Federal Confidentiality of Alcohol and Drug Abuse Patient Records regulations: The Federal rules restrict any use of the information to criminally investigate or prosecute any alcohol or drug abuse patient.[facility] the event this information is protected by the Federal Confidentiality of Alcohol and Drug Abuse Patient Records regulations: The Federal rules restrict any use of the information to criminally investigate or prosecute any alcohol or drug abuse patient.[facility] the event this information is protected by the Federal Confidentiality of Alcohol and Drug Abuse Patient Records regulations: The Federal rules restrict any use of the information to criminally investigate or prosecute any alcohol or drug abuse patient.[facility] the event this information is protected by the Federal Confidentiality of Alcohol and Drug Abuse Patient Records regulations: The Federal rules restrict any use of the information to criminally investigate or prosecute any alcohol or drug abuse patient.[facility] Reason for Visit (unrecogniz ed section and content) Reason Comments Red Eye Right Eye Reason Comments Patient Update Reason Comments Conjunctival Abrasion right eye Aching Right Eye x 1 week Eye Itching Right Eye x 1 week Red Eye Right Eye Reason Comments Conjunctival Laceration right eye Reason Comments Flashes Left Eye Reason Comments Floaters Left Eye Reason Comments Ocular contusion, left Retinal hemorrhage, left eye Reason Comments Horseshoe retinal tear of left eye Reason Comments Horseshoe Tear Follow Up Reason Comments Post-op (Ophthalmology) Left Eye laser r etinopexy Left eye 3 months Reason Comments Dysuria Care Teams (unrecognized sec tion and content) Milk Route Supervisor Relationship Specialty Start Date End Date Luigi Becerra MD PCP - General Family Practice 01/01/16 Milk Route Supervisor Relationship Specialty Start Date End Date Luigi Becerra MD PCP - General Family Practice 01/01/16 Milk Route Supervisor Relationship Specialty Start Date End Date Luigi Becerra MD PCP - General Family Practice 01/01/16 Milk Route Supervisor Relationship Specialty Start Date End Date Luigi Becerra MD PCP - General Family Practice 01/01/16 Milk Route Supervisor Relationship Specialty Start Date End Date Luigi Becerra MD PCP - General Family Practice 01/01/16 Milk Route Supervisor Relationship Specialty Start Date End Date Luigi Becerra MD PCP - General Family Practice 01/01/16 Milk Route Supervisor Relationship Specialty Start Date End Date Luigi Becerra MD PCP - General Family Medicine 01/01/16 Milk Route Supervisor Relationship Specialty Start Date End Date Luigi Becerra MD PCP - General Family Medicine 01/01/16 [employer] Relationship Specialty Start Date End Date Luigi Becerra MD PCP - General Family Medicine 01/01/16 [employer] Supervisor Relationship Specialty Start Date End Date Luigi Becerra MD PCP - General Family Medicine 01/01/16 Milk Route Supervisor Relationship Specialty Start Date End Date Luigi Becerra MD PCP - General Family Medicine 01/01/16 Active Administered Medications - up to 3 most recent administrations Administered Medications (un recognized section and content) Medication Order MAR Action Action Date Dose Rate Site PHENYLephrine 2.5 % 1 Drop (AK-DILATE, STEPHANIE-SYNEPHRINE) 1 Drop, BOTH EYES, DIRECTED, Starting on Kiara 11/06/23 at 0900, Until Fri11/06/23 at 2058, Administer for dilation PROTECT FROM LIGHT Given 11/06/2023 9:00 AM EST 1 Drop proparacaine 0.5 % 1 Drop (ALCAINE) 1 Drop, BOTH EYES, DIRECTED, Starting on Kiara 11/06/23 at 0900, Until Kiara 11/06/23 at 2058, Administer for pneumo tonometry, tonopen tonometry, or pachymetry. In the event of a proparacaine shortage, administer tetracaine 0.5% ophthalmic drops 1 drop in both eyes as directed for pneumo tonometry, tonopen tonometry, or pachymetry Given 11/06/2023 9:00 AM EST 1 Drop tropicamide 1 % 1 Drop (MYDRIACYL) 1 Drop, BOTH EYES, DIRECTED, Starting on Kiara 11/06/23 at 0900, Until Fri11/06/23 at 2058, Administer for dilation Given 11/06/2023 9:00 AM EST 1 Drop INFORMATION SOURCE (unrecogn ized section and content) DATE CREATED AUTHOR 04/04/2024 [facility] DATE CREATED AUTHOR AUTHOR'S ORGANIZ ATION 10/21/2024 [facility] DATE CREATED AUTHOR AUTHOR'S ORGANIZ ATION 03/03/2025 [facility] DATE CREATED AUTHOR AUTHOR'S ORGANIZ ATION 05/16/2025 [facility] DATE CREATED AUTHOR AUTHOR'S ORGANIZ ATION 05/16/2025 [facility] DATE CREATED AUTHOR AUTHOR'S ORGANIZ ATION 06/18/2025 [facility] DATE CREATED AUTHOR AUTHOR'S ORGANIZ ATION 06/22/2025 [facility] DATE CREATED AUTHOR AUTHOR'S ORGANIZ ATION 07/02/2025 [facility] FOR RECORDS PERTAINING TO PATIENTS WHO ARE OR HAVE BEEN ENROLLED IN A CHEMICAL DEPENDENCY/SUBSTANCEABUSE PROGRAM, SOME INFORMATION MAY BE OMITTED. This clinical summary was aggregated from multiple sources. Caution should be exercised in using it in the provision of clinical care. This summary normalizes information from multiple sources, and as a consequence, information in this document may materially change the coding, format and clinical context of patient data. In addition, data may be omitted in some cases. CLINICAL DECISIONS SHOULD BE BASED ON THE PRIMARY CLINICAL RECORDS. [facility] [employer] provides no warranty or guarantee of the accuracy or completeness of information in this document.
--- OUTSIDE RECORDS SUMMARY | 2025-07-04 07:12 | XMS RPT_ITS | CCD ---
Author Organization [facility] Care Team Providers Care Cottage Master Name Role Phone Marian RANDOLPH, Luigi Washington Primary Care Provider Lam SWAIN, Elana Damian Unavailable Luigi Becerra MD Unavailable Tyron SWAIN, Bela Vides Unavailable [phone] Fadia SWAIN, Cj Palencia Unavailable [phone] Jeffy CONNELLYN, Rhonda Unavailable Unavailable Pinky HERNÁNDEZ, Bela Byers Unavailable Unavaila marcy Goodwin LPN, Uche Unavailable Unavailable Graham SWAIN, Mirella J Unavailable [phone] Imer FIRE PREVENTION ENGINEER, Lucy Unavailable Unavailable Kurt CONNELLYN, Jing Unavailable Unavailab herbert Blanca LPN, Stephany Unavailable Unavailabl e Unavailable Unavailable Luigi Becerra MD Primary Care Provider [phone] Unavailable Unavailable Luigi Becerra MD Primary Care Provider DAYLIN GERMAIN II Referring UnavailDAYLIN Cisneros II Attending Unavailabl LUIGI Rm Primary Care Unavailable DAYLIN GERMAIN II Attending UnavailLUIGI Plunkett Primary Care Unavailable VY GREMAIN Attending UnavailLUIGI Plunkett Primary Care Unavailable DANIEL MARC Referring Unavailable DANIEL MARC Attending Unavailable LUIGI BECERRA Primary Care Unavailable REILLY OMALLEY Referring Unavailable REILLY OMALLEY Attending Unavailable LUIGI BECERRA Primary Care Unavailable LUIGI BECERRA Primary Care Unavailable Arin Patton [place] Unavailable Unavailable Unavailable Unavailable [facility] Attending Unavailable GOODMAN RANDOLPH~[id number], GOODMAN KATLYN Holbrook Attending Unavailable LUIGI HARDY F~[id number] Primary Ca re Unavailable LUIGI HARDY F~[id number] Consulting Unavailable GOODMAN RANDOLPH~[id number], GOODMAN KATLYN Holbrook Admitting Unavailable MARIAN, LUIGI F Consulting Unavailable KATLYN MACK MD Consulting Unavailable KATLYN MACK MD Consulting Unavailable LUIGI HARDY F~[id number] Primary Ca re Unavailable LUIGI HARDY F~[id number] Consulting Unavailable GOODMAN RANDOLPH~[id number], GOODMAN KATLYN Holbrook Admitting Unavailable GOODMAN RANDOLPH~[id number] KATLYN Attending Unavailable MAIRAN LUIGI F Consulting Unavailable KATLYN MACK MD Consulting Unavailable GOODMAN RANDOLPH, KATLYN Holbrook Consulting Unavailable KATLYN MACK MD Consulting Unavailable LUIGI HARDY F~[id number] Primary Ca re Unavailable GOODMAN RANDOLPH~[id number], GOODMAN KATLYN Holbrook Admitting Unavailable GOODMAN RANDOLPH~[id number], GOODMAN KATLYN Holbrook Attending Unavailable KATLYN MACK [...] Aspirin (1 source) Aspirin Drug Allergy [facility]; [facility] Opioid Agonists (1 source) Codeine Drug Allergy Vomiting [facility]; [facility] (20 sources) Codeine; Translations: [CODEINE] Drug Allergy 6 GI Upset, Nausea and vomiting [facility] Work Phone: (14 sources) Salicylate product; Translations: [SALICYLATES] Drug Intolerance 6 [facility] Work Phone: (14 sources) Aspirin; Translations: [ASPIRIN] Drug Allergy 5 [facility]; [facility], [facility]. (1 source) tree nut, unspecified; Translations: [TREE NUT] Propensity to adverse reactions to drug (disorder) [facility] Repository Medications Current Medications Medication Drug [...] / neomycin 3.5 mg/ml / polymyxin b 15132 unt/ml ophthalmic suspension (1 source) Aminoglycoside Antibacterial, Polymyxin-class Antibacterial, Corticosteroid Start: 03-12-2022 End: 03-19-2022 take 1 drop(s) into the eye(s) four times daily HJIDDMOY-MRMOYKFGC-JJFEIHRF 3.5 MG/ML-10,000 UNIT/ML-0.1% EYE DROPS Use 1 [...] 11-06-2023 PHENYLephrine 2.5 % 1 Drop (AK-DILATE, STEPHANIE-SYNEPHRINE) Start: 05-15-2023 End: 05-15-2023 PHENYLephrine 2.5 % [...] 1 Drop ( AK-DILATE, STEPHANIE-SYNEPHRINE) polymyxin b 35594 unt/ml / trimethoprim 1 mg/ml ophthalmic solution [...] dose . 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 No previous injury hx. 04-24-2011 Unclassified [...] the tick was very small reviewed by [facility] 01-20-2025 Results Test Name Value Interpretation Reference Range Facility [facility] AUT[employer] PAP AND H PV mRNA E6/E7on 06-11-2025 CLINICAL INFORMATION: Normal [facility] Comment on above: Result Comment: Rout ine exam Performed By: #### 9 0933 #### [facility] [address], [address] [place] [address] Manager Retail Store: Philippe Watt MD COMMENT Normal [facility] [...] By: #### 9 0933 #### [facility] [address], [address] [place] [address] Manager Retail Store: Philippe Watt MD COMMENT: Normal [facility] [...] By: #### 9 0933 #### [facility] [place] [address] Manager Retail Store: Philippe Watt MD RN DOCUMENT IMPROVEMENT: Normal [facility] Comment on above: Result Comment: PCJ, SCT(ASCP) CT screening location: [place] [address]. CLIA: [id number] Performed By: #### 9 0933 #### [facility] [address], [address] [place] [address] Manager Retail Store: Philippe Watt MD HPV mRNA E6/E7 Not detected Normal Not Detected [facility] Comment on above: Result Comment: Meth odology: Economic Development Manager-Mediated Amplification This assay detects E6/E7 viral messenger RNA (mRNA) from 14 high-risk HPV types (16,18,31,33,35,39,45,51,52,56,58,59,66,68). Cervical sources are required for HPV testing. If a vaginal source from a patient who has had a total hysterectomy with removal of cervix was submitted, please contact the testing laboratory for alternative testing options. For additional information, please refer to http://education.[employer]/faq/HJY905a5 (This link if provided for information/ educational purposes only.) Performed By: #### 9 0933 #### [facility] [place] [address] Manager Retail Store: Philippe Watt MD INTERPRETATION/RESULT: Normal [facility] Comment on above: Result Comment: Cyto logy Results: Negative for intraepithelial lesion or malignancy. Atrophic pattern; predominantly parabasal cells Performed By: #### 9 0933 #### [facility] [place] [address] Manager Retail Store: Philippe Watt MD LMP: Normal [facility] Comment on above: Result Comment: MIGNON DUMONT Performed By: #### 9 0933 #### [facility] [place] [address] Manager Retail Store: Philippe Watt MD PREV. BX: Normal [facility] Comment on above: Result Comment: None given Performed By: #### 9 0933 #### [facility] [place] [address] Manager Retail Store: Philippe Watt MD PREV. PAP: Normal [facility] Comment on above: Result Comment: None given Performed By: #### 9 0933 #### [facility] [place] [address] Manager Retail Store: Philippe Watt MD SOURCE: Normal [facility] Comment on above: Result Comment: Cerv ix Performed By: #### 9 0933 #### [facility] [place] [address] Manager Retail Store: Philippe Watt MD STATEMENT OF ADEQUACY: Normal [facility] Comment on above: Result Comment: SATI SFACTORY FOR EVALUATION Performed By: #### 9 0933 #### [facility] [address], [address] [place] [address] Manager Retail Store: Philippe Watt MD LIPID PANEL, [facility] 05-16 Cholesterol [Mass/Vol] 194 mg/dL Normal <200 [facility] Comment on above: Performed By: #### 7 600 #### [facility] [address], [address] [place] [address] Manager Retail Store: Philippe Watt MD Cholesterol in HDL [Mass/Vol] 78 mg/dL Normal > OR = 50 [facility] Comment on above: Performed By: #### 7 600 #### [facility] [address], [address] [place] [address] Manager Retail Store: Philippe Watt MD Cholesterol in LDL [Mass/Vol] [...] LDL-C. Go ALLEN et al. AYSHA. 2013;310(19): 4365-7580 (http://education.[employer]/faq/LQZ636) Performed By: #### 7 600 #### [facility] [address], [address] [place] [address] Manager Retail Store: Philippe Watt MD Cholesterol.total/Choles terol in HDL [Mass ratio] 2.5 {ratio} Normal <5.0 [facility] Comment on above: Performed By: #### 7 600 #### [facility] [address], [address] [place] [address] Manager Retail Store: Philippe Watt MD NON HDL CHOLESTEROL 116 mg/dL (calc) Normal <130 [facility] Comment on above: Result Comment: For patients with diabetes plus 1 major ASCVD risk factor, treating to a non-HDL-C goal of <100 mg/dL (LDL-C of <70 mg/dL) is considered a therapeutic option. Performed By: #### 7 600 #### [facility] [address] [facility], [address] [place] [address] Manager Retail Store: Philippe Watt MD Triglyceride [Mass/Vol] 78 mg/dL Normal <150 [facility] Comment on above: Performed By: #### 7 600 #### [facility] [address] [place] [address], [address] [place] [address] Manager Retail Store: Philippe Watt MD URINE CULTUREon 05-16-2025 Bacteria identified Cx Nom (U) SPECIMEN DESCRIPTION URINE CLEAN CATCH COLONY COUNT 50,000 C/C/ML CULTURE ESCHERICHIA COLI * Result Note: Testing performed at [place] [address] * REPORT STATUS 05/16/2025 * Result Note: [...] CEFEPIME <=1 SUSCEPTIBLE CEFTAZIDIME <=1 SUSCEPTIBLE Normal [facility] Comment on above: Performed By: #### A URNC #### [place] [address] POCT URINALYSIS DIPSTICK NON AUTOMATEDOrdered By: Chloe Eaton on 05-15-2025 Amorphous sediment LM Ql (Urine sed) [facility] Appearance (U) cloudy [facility] Bacteria LM Ql (Urine sed) [facility] Bilirubin Ql (U) Negative [facility] Casts LM.LPF (Urine sed) [#/Area] [facility] Color (U) light yellow [facility] Crystals LM Nom (Urine sed) [facility] Epithelial cells.squamous LM.HPF (Urine sed) [#/Area] [facility] Flow cytometry specialist review Geovanni (Unsp spec) [Interp] [facility] Glucose Auto test strip (U) [Mass/Vol] Negative mg/dL [facility] Interpretation and review of laboratory results Abnormal [facility] Ketones [Mass/Vol] Negative mg/dL [facility] Leukocyte esterase Qn (U) [facility] Leukocyte esterase Test strip Ql (U) large [facility] Nitrite Ql (U) Negative [facility] pH (U) 6.5 [pH] 5 - 7 [facility] Protein Ql (U) 30 mg/dL [facility] RBC LM.HPF (Urine sed) [#/Area] [facility] RBC Ql (U) large [facility] Specific gravity (U) [Rel density] 1.010 1.001 - 1.035 [facility] Transitional cells LM Ql (Urine sed) [facility] Urobilinogen Qn (U) 0.2 [facility] WBC LM.HPF (Urine sed) [#/Area] [facility] 25-hydroxyvitamin D [Mass/Vo l]on 02-21-2025 25-hydroxyvitamin D3 [Mass/Vol] 49.6 ng/mL Normal 30.0-100.0 [facility] Comment on above: Performed By: #### 3 024-7, 49127-4, 2777-1, 18963-1, 69777-1, 3051-0, 54501-3, 19680-8 #### [facility] [address] [place] [address] Manager Retail Store - Rani COLES [id number] HVITD VITAMIN D INTERPRETATION VITAMIN D STATUS RANGE ----- DEFICIENCY <20 ng/mL INSUFFICIENCY 20-30 ng/mL SUFFICIENCY 30-100 ng/mL TOXICITY >100 ng/mL Normal [facility] Comment on above: Performed By: #### 3 024-7, 64252-1, 2777-1, 96520-6, 81366-1, 3051-0, 01848-5, 04470-0 #### [facility] [address] [place] [address] Manager Retail Store - Rani COLES [id number] Basic metabolic 2000 panelon 02-21-2025 Anion gap [Moles/Vol] 6.0 mmol/L Normal <=15.0 [facility] Comment on above: Performed By: #### 6 2292-8, 2777-1, 3024-7, 3051-0, 83749-6, 63780-7, 84781-6, 11538-3 #### [facility] [address] [place] [address] Manager Retail Store - Rani COLES [id number] Calcium [Mass/Vol] 10.0 mg/dL Normal 8.5-10.1 [facility] Comment on above: Performed By: #### 6 2292-8, 2777-1, 3024-7, 3051-0, 02751-1, 99100-1, 90563-1, 25788-1 #### [facility] [address] [place] [address] Manager Retail Store - Rani COLES [id number] Chloride [Moles/Vol] 108 mmol/L High 98-107 [facility] Comment on above: Performed By: #### 6 2292-8, 2777-1, 3024-7, 3051-0, 63717-8, 87787-0, 62993-5, 07682-9 #### [facility] [address] [place] [address] Manager Retail Store - Rani COLES [id number] CO2 [Moles/Vol] 30 mmol/L Normal 21-32 [facility] Comment on above: Performed By: #### 6 2292-8, 2777-1, 3024-7, 3051-0, 21857-8, 32338-7, 41936-0, 70632-1 #### [facility] [address] [place] [address] Manager Retail Store - Rani COLES [id number] Creatinine [Mass/Vol] 0.82 mg/dL Normal 0.51-0.95 [facility] Comment on above: Performed By: #### 6 2292-8, 2777-1, 3024-7, 3051-0, 30654-4, 33206-3, 13028-2, 46412-3 #### [facility] [address] [place] [address] Manager Retail Store - Rani COLES [id number] GFR/1.73 sq M.predicted MDRD (S/P/Bld) [Vol rate/Area] mL/min/{1.73_m2} Normal >=60 [facility] Comment on above: Performed By: #### 6 2292-8, 2777-1, 3024-7, 3051-0, 30547-7, 94683-3, 43645-3, 31259-6 #### [facility] [address] [place] [address] Manager Retail Store - Rani COLES [id number] Glucose [Mass/Vol] 86 mg/dL Normal 74-106 [facility] Comment on above: Performed By: #### 6 2292-8, 2777-1, 3024-7, 3051-0, 99164-0, 06826-7, 29377-0, 01158-2 #### [facility] [address] [place] [address] Manager Retail Store - Rani COLES [id number] HGFR GLOMERULAR FILTRATIO N RATE INTERPRETATION~The eGFR [...] months, with or without kidney damage.~ Normal [facility] Comment on above: Performed By: #### 6 2292-8, 2777-1, 3024-7, 3051-0, 18500-3, 73782-5, 91801-8, 16106-6 #### [facility] [address] [place] [address] Manager Retail Store - Rani Urbinanikole COLES [id number] Potassium [Moles/Vol] 4.5 mmol/L Normal 3.5-5.1 [facility] Comment on above: Performed By: #### 6 2292-8, 7-1, 3024-7, 3051-0, 81132-2, 42951-8, 99662-9, 51383-0 #### [facility] [address] [place] [address] Manager Retail Store - Rani COLES [id number] Sodium [Moles/Vol] 144 mmol/L Normal 136-145 [facility] Comment on above: Performed By: #### 6 2292-8, 7-1, 3024-7, 3051-0, 82318-0, 19289-0, 02317-9, 86954-8 #### [facility] [address] [place] [address] Manager Retail Store - Rani COLES [id number] Urea nitrogen [Mass/Vol] 12 mg/dL Normal 7-17 [facility] Comment on above: Performed By: #### 6 2292-8, 2777-1, 3024-7, 3051-0, 45569-3, 95251-8, 10647-2, 27429-4 #### [facility] [address] [place] [address] Manager Retail Store - Rani COLES [id number] CBC panel Auto (Bld)on 02-21 Erythrocyte distribution width (RBC) [Entitic vol] 40.5 fL Normal 36.4-46.3 [facility] Comment on above: Performed By: #### 3 024-7, 74646-0, 2777-1, 47113-1, 90710-6, 3051-0, 29945-3, 03589-8 #### [facility] [address] [place] [address] Manager Retail Store - Rani COLES [id number] Hematocrit (Bld) [Volume fraction] 40.1 % Normal 37.0-47.0 [facility] Comment on above: Performed By: #### 3 024-7, 25062-1, 2777-1, 37969-9, 51055-0, 3051-0, 08456-6, 67233-4 #### [facility] [address] [place] [address] Manager Retail Store - Rani COLES [id number] Hemoglobin (Bld) [Mass/Vol] 13.3 g/dL Normal 12.0-16.0 [facility] Comment on above: Performed By: #### 3 024-7, 94562-6, 2777-1, 24925-8, 94385-4, 3051-0, 15279-3, 17923-5 #### [facility] [address] [place] [address] Manager Retail Store - aRni COLES [id number] MCH (RBC) [Entitic mass] 29.9 pg Normal 27.0-31.0 [facility] Comment on above: Performed By: #### 3 024-7, 64644-5, 2777-1, 52065-8, 14840-9, 3051-0, 92352-9, 17887-2 #### [facility] [address] [place] [address] Manager Retail Store - Rani COLES [id number] MCHC (RBC) [Mass/Vol] 33.2 g/dL Normal 32.0-36.0 [facility] Comment on above: Performed By: #### 3 024-7, 19307-8, 2777-1, 72501-4, 64454-8, 3051-0, 86682-4, 52547-9 #### [facility] [address] [place] [address] Manager Retail Store - Rani COLES [id number] MCV (RBC) [Entitic vol] 90.1 fL Normal 80.0-100.0 [facility] Comment on above: Performed By: #### 3 024-7, 50413-3, 2777-1, 79958-4, 93337-8, 3051-0, 64845-7, 22560-2 #### [place] [address] [place] [address] Manager Retail Store - Rani COLES [id number] Platelet mean volume (Bld) [Entitic vol] 10.1 fL Normal 9.0-13.0 [facility] Comment on above: Performed By: #### 3 024-7, 66311-8, 2777-1, 99836-2, 80957-7, 3051-0, 23245-3, 28282-4 #### [place] [address] [place] [address] Manager Retail Store - Rani BRANDONIA [id number] Platelets (Bld) [#/Vol] 265 10*3/uL Normal 130-400 [facility] Comment on above: Performed By: #### 3 024-7, 04807-5, 2777-1, 76946-0, 43276-1, 3051-0, 27184-3, 10928-4 #### [facility] [address] [place] [address] Manager Retail Store - Rani BRANDONIA [id number] RBC (Bld) [#/Vol] 4.45 10*6/uL Normal 4.00-6.30 [facility] Comment on above: Performed By: #### 3 024-7, 85354-5, 2777-1, 99476-0, 39752-0, 3051-0, 07745-1, 76064-1 #### [facility] [address] [facility] [place] [address] Manager Retail Store - Rani COLES [id number] WBC (Bld) [#/Vol] 5.91 10*3/uL Normal 4.80-10.80 [facility] Comment on above: Performed By: #### 3 024-7, 72762-7, 2777-1, 27349-1, 05828-4, 3051-0, 46197-9, 23606-2 #### [facility] [address] [facility] [place] [address] Manager Retail Store - Rani COLES [id number] FREE T3on 02-21-2025 Free T3 [Mass/Vol] 3.94 pg/mL Normal 2.18-3.98 [facility] Comment on above: Performed By: #### 6 2292-8, 2777-1, 3024-7, 3051-0, 69544-8, 59209-2, 62627-6, 82843-2 #### [facility] [address] [facility] [place] [address] Manager Retail Store - Rani COLES [id number] FREE T4on 02-21-2025 Free T4 [Mass/Vol] 1.12 ng/dL Normal 0.76-1.46 [facility] Comment on above: Performed By: #### 3 024-7, 97657-8, 2777-1, 09971-9, 34053-8, 3051-0, 95191-0, 95346-8 #### [facility] [address] [facility] [place] [address] Manager Retail Store - Rani BRANDONIA [id number] Hepatic function 2000 panelo n 02-21-2025 Albumin [Mass/Vol] 3.8 g/dL Normal 3.4-5.0 [facility] Comment on above: Performed By: #### 3 024-7, 97049-5, 2777-1, 54033-0, 65235-3, 3051-0, 40982-4, 51391-8 #### [facility] [address] [facility] [place] [address] Manager Retail Store - Rani COLES [id number] Albumin/Globulin [Mass ratio] 1.5 {ratio} Normal 1.0-2.2 [facility] Comment on above: Performed By: #### 3 024-7, 75450-1, 2777-1, 11942-4, 99942-4, 3051-0, 62148-3, 01641-8 #### [facility] [address] [facility] [place] [address] Manager Retail Store - Rani COLES [id number] ALP [Catalytic activity/Vol] 89 U/L Normal 50-136 [facility] Comment on above: Performed By: #### 3 024-7, 75110-4, 2777-1, 35252-4, 14367-5, 3051-0, 69451-9, 54668-1 #### [facility] [address] [facility] [place] [address] Manager Retail Store - Rani COLES [id number] ALT [Catalytic activity/Vol] 28 U/L Normal 14-59 [facility] Comment on above: Performed By: #### 3 024-7, 65520-1, 2777-1, 55132-6, 89537-7, 3051-0, 95198-4, 07102-5 #### [facility] [address] [facility] [place] [address] Manager Retail Store - Rani COLES [id number] AST [Catalytic activity/Vol] 26 U/L Normal 15-37 [facility] Comment on above: Performed By: #### 3 024-7, 00506-5, 2777-1, 66428-9, 08984-4, 3051-0, 24555-6, 87708-7 #### [facility] [address] [place] [address] Manager Retail Store - Rani BRANDONIA [id number] Bilirubin [Mass/Vol] 0.7 mg/dL Normal 0.2-1.0 [facility] Comment on above: Performed By: #### 3 024-7, 44840-3, 2777-1, 45092-1, 35101-2, 3051-0, 33902-3, 46977-9 #### [facility] [address] [place] [address] Manager Retail Store - Rani BRANDONIA [id number] Bilirubin.conjugated [Mass/Vol] 0.2 mg/dL Normal <=0.2 [facility] Comment on above: Performed By: #### 3 024-7, 78362-5, 2777-1, 04221-9, 48528-7, 3051-0, 49362-6, 89901-6 #### [facility] [address] [place] [address] Manager Retail Store - Rani COLES [id number] Globulin (S) [Mass/Vol] 2.6 g/dL Normal 2.4-3.8 [facility] Comment on above: Performed By: #### 3 024-7, 70265-7, 2777-1, 76955-8, 79720-4, 3051-0, 95841-6, 89127-5 #### [facility] [address] [place] [address] Manager Retail Store - Rani BRANDONIA [id number] Protein [Mass/Vol] 6.4 g/dL Normal 6.4-8.2 [facility] Comment on above: Performed By: #### 3 024-7, 26346-0, 2777-1, 72784-8, 61340-5, 3051-0, 65385-0, 29319-3 #### [facility] [address] [place] [address] Manager Retail Store - Rani BRANDONIA [id number] IONIZED CALCIUM- in-house te alesia 02-21-2025 IONIZED CA 1.2 mmol/L Normal 1.1-1.4 [facility] Comment on above: Performed By: #### 3 024-7, 10971-6, 2777-1, 55936-3, 13728-9, 3051-0, 93183-6, 90052-1 #### [facility] [address] [place] [address] Manager Retail Store - Rani COLES [id number] MAGNESIUMon 02-21-2025 Magnesium [Mass/Vol] 2.0 mg/dL Normal 1.6-2.6 [facility] Comment on above: Performed By: #### 3 024-7, 19418-5, 2777-1, 16893-5, 72624-8, 3051-0, 92577-8, 23089-2 #### [facility] [address] [place] [address] Manager Retail Store - Rani COLES [id number] PHOSPHORUSon 02-21-2025 Phosphate [Mass/Vol] 3.6 mg/dL Normal 2.5-4.9 [facility] Comment on above: Performed By: #### 3 024-7, 24619-5, 2777-1, 25707-2, 94198-8, 3051-0, 29135-8, 74591-2 #### [facility] [address] [place] [address] Manager Retail Store - Rani COLES [id number] PTH INTACTon 02-21-2025 Parathyrin.intact [Mass/Vol] 62.0 pg/mL Normal 18.4-80.1 [facility] Comment on above: Performed By: #### 3 024-7, 27703-2, 2777-1, 48946-4, 53182-3, 3051-0, 65731-2, 37539-9 #### [facility] [address] [place] [address] Manager Retail Store - Rani Urbina XceiveMITCHELL [id number] Parathyrin.intact [Mass/Vol] on 02-21-2025 Calcium [Mass/Vol] 10.1 mg/dL Normal 8.5-10.1 [facility] Comment on above: Performed By: #### 3 024-7, 16659-4, 2777-1, 62472-7, 32194-5, 3051-0, 71550-3, 31087-5 #### [facility] [address] [place] [address] [employer] - Rani COLES [id number] HIP INTACT PTH INTERPRETATION Interpretation Intact PTH Calcium (pg/mL) (mg/dL) Normal 10.0 - 65.0 8.4 - 10.2 Primary Hyperparathyroidism >65.0 >10.2 Secondary Hyperparathyroidism >65.0 <10.2 Non-Parathyroid Hypercalcemia <65.0 >10.2 Hypoparathyroidism <10.2 <8.4 Non-Parathyroid Hypocalcemia 10.0 - 65.0 <8.4 Careful interpretation of the PTH result may be necessary to evaluate the falsely depressed PTH values in patients taking high doses of biotin. Normal [facility] Comment on above: Performed By: #### 3 024-7, 50135-2, 2777-1, 74511-9, 71137-5, 3051-0, 96679-9, 48394-0 #### [facility] [address] [place] [address] [employer] - Rani COLES [id number] TSH DL <= 0.05 mIU/L Qnon TSH Qn 0.334 uIU/mL Low 0.358-3.740 [facility] Comment on above: Performed By: #### 3 024-7, 16302-8, 2777-1, 62546-9, 62468-6, 3051-0, 81999-9, 40632-6 #### [facility] [address] [place] [address] [employer] - Rani COLES [id number] LYME DISEASE AB W/REFL TO BL OT [...] By: #### 6 646 #### [facility] [address], [address] [place] [address] Manager Retail Store: Philippe Watt MD No Panel Informationon 01-20 LYME AB SCREEN <0.90 Normal [facility]; [facility], [facility] - Microbiology an d Antimicrobial susceptibilityon 10-19-2024 S. pyogenes Ag EIA Ql (Throat) Negative Normal [facility]; [facility]. 25-hydroxyvitamin D [Mass/Vo l]on 08-27-2024 25-hydroxyvitamin D3 [Mass/Vol] 48.6 ng/mL Normal 30.0-100.0 [facility] Comment on above: Performed By: #### 3 024-7, 37900-9, 2777-1, 46320-3, 30938-9, 3051-0, 09823-0, 97162-3 #### [facility] [address] [place] [address] Manager [employer] - Rani COLES [id number] HVITD VITAMIN D INTERPRETATION VITAMIN D STATUS RANGE ----- DEFICIENCY <20 ng/mL INSUFFICIENCY 20-30 ng/mL SUFFICIENCY 30-100 ng/mL TOXICITY >100 ng/mL Normal [facility] Comment on above: Performed By: #### 3 024-7, 63126-8, 2777-1, 75572-8, 80561-6, 3051-0, 17535-8, 84403-9 #### [facility] [address] [place] [address] Manager [employer] - Rani COLES [id number] BASIC METABOLIC PANELon 08-15 Calcium [Mass/Vol] 10.2 mg/dL High 8.5-10.1 [facility] Comment on above: Performed By: #### 3 024-7, 44290-2, 2777-1, 76856-1, 75769-3, 3051-0, 06529-3, 28782-3 #### [facility] [address] [place] [address] Manager [employer] - Rani COLES [id number] Basic metabolic 2000 panelon 08-27-2024 Anion gap [Moles/Vol] 7.0 mmol/L Normal <=15.0 [facility] Comment on above: Performed By: #### 3 024-7, 27613-8, 2777-1, 64814-0, 90657-3, 3051-0, 04883-2, 61008-6 #### [facility] [address] [place] [address] Manager [employer] - Rani COLES [id number] Chloride [Moles/Vol] 107 mmol/L Normal 98-107 [facility] Comment on above: Performed By: #### 3 024-7, 89010-1, 2777-1, 95324-5, 13090-7, 3051-0, 31143-1, 36549-4 #### [facility] [address] [place] [address] Manager [employer] Store - Rani COLES [id number] CO2 [Moles/Vol] 30 mmol/L Normal 21-32 [facility] Comment on above: Performed By: #### 3 024-7, 61297-9, 2777-1, 85545-7, 80744-0, 3051-0, 30614-5, 71339-7 #### [facility] [address] [place] [address] Manager Retail Store - [facility] [id number] Creatinine [Mass/Vol] 0.84 mg/dL Normal 0.51-0.95 [facility] Comment on above: Performed By: #### 3 024-7, 68410-8, 2777-1, 04489-7, 62966-8, 3051-0, 18373-6, 17268-4 #### [facility] [address] [place] [address] Manager Retail Store - [facility] [id number] GFR/1.73 sq M.predicted MDRD (S/P/Bld) [Vol rate/Area] mL/min/{1.73_m2} Normal >=60 [facility] Comment on above: Performed By: #### 3 024-7, 85084-0, 2777-1, 44193-3, 41537-9, 3051-0, 18740-6, 92906-4 #### [facility] [address] - [facility] [id number] Glucose [Mass/Vol] 84 mg/dL Normal 74-106 [facility] Comment on above: Performed By: #### 3 024-7, 04085-2, 2777-1, 70557-0, 91124-9, 3051-0, 90015-6, 36388-0 #### [facility] [address] [place] [address] Manager Retail Store - [facility] [id number] HGFR GLOMERULAR FILTRATIO N RATE INTERPRETATION~The eGFR [...] months, with or without kidney damage.~ Normal [facility] Comment on above: Performed By: #### 3 024-7, 85402-9, 2777-1, 74277-1, 62680-8, 3051-0, 69232-0, 42643-2 #### [facility] [address] [place] [address] Manager Retail Store - [facility] [id number] Potassium [Moles/Vol] 4.5 mmol/L Normal 3.5-5.1 [facility] Comment on above: Performed By: #### 3 024-7, 48307-2, 2777-1, 94830-4, 79893-5, 3051-0, 02848-2, 31400-7 #### [facility] [address] [place] [address] Manager Retail Store - [facility] [id number] Sodium [Moles/Vol] 144 mmol/L Normal 136-145 [facility] Comment on above: Performed By: #### 3 024-7, 10716-5, 2777-1, 37105-3, 50739-5, 3051-0, 14710-8, 25689-9 #### [facility] [address] [place] [address] Manager [employer] - Rani COLES [id number] Urea nitrogen [Mass/Vol] 17 mg/dL Normal 7-17 [facility] Comment on above: Performed By: #### 3 024-7, 90228-5, 2777-1, 81610-2, 20559-9, 3051-0, 34902-9, 85003-5 #### [facility] [address] [place] [address] [employer] - [facility] [id number] CBC panel Auto (Bld)on 08-27 Erythrocyte distribution width (RBC) [Entitic vol] 39.7 fL Normal 36.4-46.3 [facility] Comment on above: Performed By: #### 3 024-7, 38724-1, 2777-1, 75241-7, 54741-8, 3051-0, 69279-9, 41091-4 #### [facility] [address] [place] [address] Manager [employer] - Rani COLES [id number] Hematocrit (Bld) [Volume fraction] 39.8 % Normal 37.0-47.0 [facility] Comment on above: Performed By: #### 3 024-7, 74596-7, 2777-1, 34227-8, 49553-9, 3051-0, 95090-4, 62064-2 #### [facility] [address] [place] [address] Manager [employer] - Rani COLES [id number] Hemoglobin (Bld) [Mass/Vol] 13.7 g/dL Normal 12.0-16.0 [facility] Comment on above: Performed By: #### 3 024-7, 43273-8, 2777-1, 96991-3, 94741-9, 3051-0, 71423-9, 54878-6 #### [place] [address] [place] [address] Manager [employer] Store - Rani COLES [id number] MCH (RBC) [Entitic mass] 30.0 pg Normal 27.0-31.0 [facility] Comment on above: Performed By: #### 3 024-7, 85513-8, 2777-1, 46552-5, 67393-4, 3051-0, 01776-9, 43494-7 #### [facility] [address] [place] [address] Manager [employer] - Rani COLES [id number] MCHC (RBC) [Mass/Vol] 34.4 g/dL Normal 32.0-36.0 [facility] Comment on above: Performed By: #### 3 024-7, 92312-2, 2777-1, 92164-8, 01980-9, 3051-0, 03119-3, 47478-7 #### [facility] [address] [place] [address] Manager [employer] Store - Rani BRANDONIA [id number] MCV (RBC) [Entitic vol] 87.1 fL Normal 80.0-100.0 [facility] Comment on above: Performed By: #### 3 024-7, 81771-1, 2777-1, 63582-5, 83173-4, 3051-0, 49218-3, 80350-4 #### [facility] [address] [place] [address] Manager [employer] Store - Rani BRANDONIA [id number] Platelet mean volume (Bld) [Entitic vol] 10.4 fL Normal 9.0-13.0 [facility] Comment on above: Performed By: #### 3 024-7, 62436-7, 2777-1, 05016-9, 59715-2, 3051-0, 17003-3, 85119-6 #### [place] [address] [place] [address] Manager [employer] Store - Rani BRANDONIA [id number] Platelets (Bld) [#/Vol] 234 10*3/uL Normal 130-400 [facility] Comment on above: Performed By: #### 3 024-7, 35586-3, 2777-1, 82010-3, 07021-7, 3051-0, 95300-5, 26132-0 #### [place] [address] [place] [address] Manager Retail Store - Rani Urbina CLIA [id number] RBC (Bld) [#/Vol] 4.57 10*6/uL Normal 4.00-6.30 [facility] Comment on above: Performed By: #### 3 024-7, 24856-0, 2777-1, 67449-4, 23924-4, 3051-0, 14806-3, 68285-6 #### [facility] [address] [place] [address] Manager [employer] Store - Rani Urbina CLIA [id number] WBC (Bld) [#/Vol] 4.63 10*3/uL Low 4.80-10.80 [facility] Comment on above: Performed By: #### 3 024-7, 44226-7, 2777-1, 15579-5, 15576-9, 3051-0, 58088-8, 24934-5 #### [facility] [address] [place] [address] Manager [employer] Store - Rani COLES [id number] FREE T3on 08-27-2024 Free T3 [Mass/Vol] 3.20 pg/mL Normal 2.18-3.98 [facility] Comment on above: Performed By: #### 3 024-7, 25768-2, 2777-1, 96451-0, 02501-0, 3051-0, 30995-9, 40357-5 #### [facility] [address] [place] [address] Manager [employer] Store - Rani COLES [id number] FREE T4on 08-27-2024 Free T4 [Mass/Vol] 0.93 ng/dL Normal 0.76-1.46 [facility] Comment on above: Performed By: #### 3 024-7, 33901-9, 2777-1, 87406-8, 89425-4, 3051-0, 18322-5, 56385-8 #### [facility] [address] [place] [address] Manager [employer] Store - Rani COLES [id number] Hepatic function 2000 panelo n 08-27-2024 Albumin [Mass/Vol] 4.1 g/dL Normal 3.4-5.0 [facility] Comment on above: Performed By: #### 3 024-7, 00492-4, 2777-1, 54416-8, 89338-3, 3051-0, 59546-0, 76385-2 #### [facility] [address] [place] [address] Manager [employer] Store - Rani COLES [id number] Albumin/Globulin [Mass ratio] 1.5 {ratio} Normal 1.0-2.2 [facility] Comment on above: Performed By: #### 3 024-7, 20749-5, 2777-1, 55175-0, 17832-1, 3051-0, 17817-2, 85424-3 #### [facility] [address] [place] [address] Manager [employer] Store - Rani COLES [id number] ALP [Catalytic activity/Vol] 88 U/L Normal 50-136 [facility] Comment on above: Performed By: #### 3 024-7, 04654-1, 2777-1, 24604-6, 05591-7, 3051-0, 78550-3, 25242-8 #### [facility] [address] [place] [address] Manager Retail Store - [facility] [place] [id number] ALT [Catalytic activity/Vol] 20 U/L Normal 14-59 [facility] Comment on above: Performed By: #### 3 024-7, 76445-8, 2777-1, 95372-9, 19151-0, 3051-0, 77675-0, 59297-8 #### [facility] [address] [place] [address] Manager Retail Store - [facility] [id number] AST [Catalytic activity/Vol] 20 U/L Normal 15-37 [facility] Comment on above: Performed By: #### 3 024-7, 24548-3, 2777-1, 30747-1, 43146-7, 3051-0, 52480-4, 49490-0 #### [facility] [address] [place] [address] Manager Retail Store - [facility] [id number] Bilirubin [Mass/Vol] 0.8 mg/dL Normal 0.2-1.0 [facility] Comment on above: Performed By: #### 3 024-7, 40601-8, 2777-1, 92535-9, 36223-6, 3051-0, 29232-7, 96785-0 #### [facility] [address] [place] [address] Manager Retail Store - Rani Urbina CLIA [id number] Bilirubin.conjugated [Mass/Vol] 0.2 mg/dL Normal <=0.2 [facility] Comment on above: Performed By: #### 3 024-7, 36250-1, 2777-1, 99287-3, 70859-4, 3051-0, 38447-4, 11267-0 #### [facility] [address] [place] [address] Manager [employer] Store - Rani BRANDONIA [id number] Globulin (S) [Mass/Vol] 2.7 g/dL Normal 2.4-3.8 [facility] Comment on above: Performed By: #### 3 024-7, 63231-0, 2777-1, 78729-7, 20986-9, 3051-0, 47141-2, 69688-8 #### [facility] [address] [place] [address] Manager [employer] Store - Rani Urbina CLIA [id number] Protein [Mass/Vol] 6.8 g/dL Normal 6.4-8.2 [facility] Comment on above: Performed By: #### 3 024-7, 19900-7, 2777-1, 23164-2, 75080-0, 3051-0, 90405-3, 41847-8 #### [facility] [address] [place] [address] Manager [employer] Store - Rani BRANDONIA [id number] MAGNESIUMon 08-27-2024 Magnesium [Mass/Vol] 1.8 mg/dL Normal 1.6-2.6 [facility] Comment on above: Performed By: #### 3 024-7, 48062-4, 2777-1, 39308-4, 12763-9, 3051-0, 69237-0, 47444-6 #### [facility] [address] [place] [address] Manager [employer] - Rani Urbina CLIA [id number] PHOSPHORUSon 08-27-2024 Phosphate [Mass/Vol] 3.9 mg/dL Normal 2.5-4.9 [facility] Comment on above: Performed By: #### 3 024-7, 92304-7, 2777-1, 21061-3, 87599-4, 3051-0, 23178-2, 51554-6 #### [facility] [address] [place] [address] Manager [employer] Store - Rani COLES [id number] PTH INTACTon 08-27-2024 Parathyrin.intact [Mass/Vol] 54.0 pg/mL Normal 18.4-80.1 [facility] Comment on above: Performed By: #### 3 024-7, 04782-0, 2777-1, 55189-0, 60119-1, 3051-0, 36701-2, 90207-1 #### [facility] [address] [place] [address] Manager [employer] Store - Rani COLES [id number] Parathyrin.intact [Mass/Vol] on 08-27-2024 [facility] INTACT PTH INTERPRETATION Interpretation Intact PTH Calcium (pg/mL) (mg/dL) Normal 10.0 - 65.0 8.4 - 10.2 Primary Hyperparathyroidism >65.0 >10.2 Secondary Hyperparathyroidism >65.0 <10.2 Non-Parathyroid Hypercalcemia <65.0 >10.2 Hypoparathyroidism <10.2 <8.4 Non-Parathyroid Hypocalcemia 10.0 - 65.0 <8.4 Careful interpretation of the PTH result may be necessary to evaluate the falsely depressed PTH values in patients taking high doses of biotin. Normal [facility] Comment on above: Performed By: #### 3 024-7, 40334-1, 2777-1, 43336-3, 03086-7, 3051-0, 76615-3, 61687-3 #### [facility] [address] [place] [address] Manager Retail Store - Rnai COLES [id number] TSH DL <= 0.05 mIU/L Qnon TSH Qn 9.544 uIU/mL High 0.358-3.740 [facility] Comment on above: Performed By: #### 3 024-7, 70106-0, 2777-1, 90986-5, 23909-3, 3051-0, 94477-5, 26223-0 #### [facility] [address] [place] [address] Manager [employer] - Rani COLES [id number] [facility] 05-06-2023 [facility] Telephone (OPTMAN) JENN HINOJOSA ([id number]) 1970 F Date Time Provider Department 05/06/23 [...] Status:Closed by YESY CAMPOS on 03/31/24 Normal [facility] No Panel Informationon 04-16 JOSE MARIA SCREEN, IFA Negative Normal [facility]; [facility] LYME AB SCREEN <0.90 Normal [facility]; [facility], [facility] RHEUMATOID FACTOR <14 Normal [facility]; [facility], [facility] SED RATE BY MODIFIED WESTERGREN 2 mm/h Normal [facility]; [facility], [facility] Laboratory - Chemistry and C hemistry - challengeon 11-28-2021 Albumin [Mass/Vol] 4.9 g/dL Normal 3.6 - 5.1 g/dL [facility]; [facility], [facility] Albumin/Globulin [Mass ratio] 2.7 {ratio} Abnormal 1.0 - 2.5 [facility]; [facility], [facility] ALP [Catalytic activity/Vol] 56 U/L Normal 37 - 153 U/L [facility]; [facility], [facility]. ALT [Catalytic activity/Vol] 15 U/L Normal 6 - 29 U/L [facility]; [facility], [facility] AST [Catalytic activity/Vol] 17 U/L Normal 10 - 35 U/L [facility], [facility].; [facility], [facility] Bilirubin [Mass/Vol] 0.9 mg/dL Normal 0.2 - 1 .2 mg/dL [facility], [facility]; [facility], [facility] Calcium [Mass/Vol] 10.2 mg/dL Normal 8.6 - 10. 4 mg/dL [facility], [facility].; [facility], [facility] Chloride [Moles/Vol] 104 mmol/L Normal 98 - 11 0 mmol/L [facility], [facility].; [facility], [facility] Cholesterol [Mass/Vol] 227 mg/dL Abnormal [facility]; [facility], [facility]. Cholesterol in HDL [Mass/Vol] 91 mg/dL Normal [facility].; [facility], [facility] Cholesterol in LDL [Mass/Vol] 122 mg/dL Abnormal [facility].; [facility], [facility]. CO2 [Moles/Vol] 28 mmol/L Normal 20 - 32 mmol/L [facility], [facility].; [facility], [facility] Creatinine [Mass/Vol] 0.90 mg/dL Normal 0.50 - 1.05 mg/dL [facility].; [facility], [facility]. GFR/1.73 sq M.predicted among blacks MDRD (S/P/Bld) [Vol rate/Area] 86 mL/min/{1.73_m2} Normal [facility].; [facility], [facility] Glucose [Mass/Vol] 83 mg/dL Normal 65 - 99 mg/dL [facility], [facility].; [facility], [facility]. Potassium [Moles/Vol] 4.6 mmol/L Normal 3.5 - 5.3 mmol/L [facility].; [facility], [facility]. Protein [Mass/Vol] 6.7 g/dL Normal 6.1 - 8.1 g/dL [facility], [facility].; [facility], [facility]. Sodium [Moles/Vol] 140 mmol/L Normal 135 - 146 mmol/L [facility], [facility].; [facility], [facility]. Triglyceride [Mass/Vol] 57 mg/dL Normal [facility].; [facility], [facility]. Urea nitrogen [Mass/Vol] 17 mg/dL Normal 7 - 25 mg/dL [facility], [facility].; [facility], [facility] No Panel Informationon 11-28 BUN/CREATININE RATIO NOT APPLICABLE Normal 6 - 22 [facility].; [facility] [employer] CHOL/HDLC RATIO 2.5 Normal [facility].; [facility], [facility] eGFR NON-AFR. GAMBIAN 75 Normal [facility], [facility].; [facility], [facility] GLOBULIN 1.8 Abnormal 1.9 - 3.7 [facility]; [employer] NON HDL CHOLESTEROL 136 Abnormal [facility].; [facility] - Microbiology an d Antimicrobial susceptibilityon 11-10-2017 FLUAV Ag IA Ql (Throat) Negative Normal [facility].; [place] - Microbiology an d Antimicrobial susceptibilityOrdered By: Stephany Blanca on 09-02-2014 FLUAV Ag IA Ql (Throat) Positive Abnormal [facility].; [facility] Laboratory - Chemistry and C hemistry - challengeon 04-14-2012 Albumin [Mass/Vol] 5.1 g/dL Normal 3.6 - 5.1 g/dL [facility]; [facility], [employer] Albumin/Globulin [Mass ratio] 2.3 {ratio} Abnormal 1.0 - 2.1 [facility].; [facility] [employer] ALP [Catalytic activity/Vol] 59 U/L Normal 33 - 115 U/L [facility].; [facility] [employer], [employer]. ALT [Catalytic activity/Vol] 15 U/L Normal 6 - 40 U/L [facility].; [employer]. Amylase [Catalytic activity/Vol] 62 U/L Normal 21 - 101 U/L [facility].; [employer], [employer]. AST [Catalytic activity/Vol] 17 U/L Normal 10 - 30 U/L [facility].; [employer] Bilirubin [Mass/Vol] 0.9 mg/dL Normal 0.2 - 1 .2 mg/dL [facility].; [employer], [employer]. Calcium [Mass/Vol] 10.2 mg/dL Normal 8.6 - 10. 2 mg/dL [facility], [employer].; [employer], [employer]. Chloride [Moles/Vol] 106 mmol/L Normal 98 - 11 0 mmol/L [facility].; [employer], [employer]. CO2 [Moles/Vol] 23 mmol/L Normal 21 - 33 mmol/L [facility].; [employer], [employer]. Creatinine [Mass/Vol] 0.87 mg/dL Normal 0.50 - 1.10 mg/dL [facility].; [facility], [facility]. GFR/1.73 sq M.predicted among blacks MDRD (S/P/Bld) [Vol rate/Area] 97 {ML/MIN/1.73M2} Normal [facility].; [facility], [facility]. GFR/1.73 sq M.predicted MDRD (S/P/Bld) [Vol rate/Area] 83 {ML/MIN/1.73M2} Normal [facility].; [facility], [facility] Globulin (S) [Mass/Vol] 2.2 g/dL Normal 2.2 - 3.9 g/dL [facility].; [facility], [facility]. Glucose [Mass/Vol] 44 mg/dL Abnormal 65 - 99 mg/dL [facility].; [facility], [facility]. Lipase [Catalytic activity/Vol] 38 U/L Normal 7 - 60 U/L [facility].; [facility], [facility]. Potassium [Moles/Vol] 4.3 mmol/L Normal 3.5 - 5.3 mmol/L [facility].; [facility], [facility]. Protein [Mass/Vol] 7.3 g/dL Normal 6.2 - 8.3 g/dL [facility].; [facility], [facility]. Sodium [Moles/Vol] 140 mmol/L Normal 135 - 146 mmol/L [facility].; [facility] [place] [facility], [facility]. TSH Qn 0.29 m[IU]/L Abnormal 0.40 - 4.50 {mIU/L} [facility] [employer] [facility].; [facility], [facility]. Urea nitrogen [Mass/Vol] 16 mg/dL Normal 7 - 25 mg/dL [facility] [employer] [facility].; [facility], [facility]. Urea nitrogen/Creatinine [Mass ratio] 18.3 mg/mg Normal 6 - 22 [facility].; [place] [facility], [facility]. Laboratory - Hematology and Cell countson 04-14-2012 Basophils (Bld) [#/Vol] 10 {Cells}/uL Normal 0 - 200 {Cells}/uL [facility] [facility].; [facility], Inc[employer] Basophils/100 WBC (Bld) 0 % Normal 0 - 2 % [facility].; [facility], [facility]. Eosinophils (Bld) [#/Vol] 90 {Cells}/uL Normal 15 - 500 {Cells}/uL [facility] [facility].; [facility], [facility]. Eosinophils/100 WBC (Bld) 1 % Normal 0 - 8 % [facility] [facility].; [facility], [facility]. Erythrocyte distribution width (RBC) [Ratio] 14.1 % Normal 11.0 - 15.0 % [facility] [facility].; [place] [facility], [facility]. Hematocrit (Bld) [Volume fraction] 39.3 % Normal 35.0 - 45.0 % [facility], [facility].; [facility], [facility]. Hemoglobin (Bld) [Mass/Vol] 13.4 g/dL Normal 11.7 - 15.5 g/dL [facility] [facility].; [facility], [facility]. Lymphocytes (Bld) [#/Vol] 1760 {Cells}/uL Normal 850 - 3900 {Cells}/uL [facility] [facility].; [place] [facility], [facility]. Lymphocytes/100 WBC (Bld) 19 % Normal 15 - 49 % [facility] [facility].; [place] [employer], [facility]. MCH (RBC) [Entitic mass] 30.5 pg Normal 27. 0 - 33.0 PG [facility] [employer] [facility].; [place] [employer], [facility]. MCHC (RBC) [Mass/Vol] 34.1 g/dL Normal 32.0 - 36.0 g/dL [facility] [facility].; [place] [facility], [facility]. MCV (RBC) [Entitic vol] 89.6 fL Normal 80.0 - 100.0 fL [place] [facility], [facility].; [place] [employer], [facility]. Monocytes (Bld) [#/Vol] 610 {Cells}/uL Normal 20 0 - 950 {Cells}/uL [facility] [employer] [facility].; [place] [employer] Monocytes/100 WBC (Bld) 7 % Normal 0 - 13 % [facility].; [facility], [facility]. Neutrophils (Bld) [#/Vol] 6900 {Cells}/uL Normal 1500 - 7800 {Cells}/uL [facility], [facility].; [facility] [employer], [facility]. Neutrophils/100 WBC (Bld) 74 % Normal 38 - 80 % [facility].; [facility], [facility]. Platelets (Bld) [#/Vol] 207 10*3/uL Normal 140 - 400 10*3/uL [facility], [facility].; [facility], [facility]. RBC (Bld) [#/Vol] 4.39 10*6/uL Normal 3.80 - 5.1 0 10*6/uL [facility].; [facility], [facility]. WBC (Bld) [#/Vol] 9.4 10*3/uL Normal 3.8 - 10.8 10*3/uL [facility], [facility].; [place] [employer], [facility]. No Panel Information [facility] Vital Signs Date Time Vital Sign Value Performing Clinician Facility 01-20-2025 11:25-0400 Body height 165.1 cm Rhonda Bardales LPN [facility], [facility].; [facility], [facility]. 01-20-2025 11:25-0400 Body mass index (BMI) [Ratio] 23.8 kg/m2 Rhonda Bardales LPN [facility], [facility].; [facility], [facility]. 01-20-2025 11:25-0400 Body surface area Derived from formula 1.72 m2 Rhonda Bardales LPN [facility].; [facility] [employer], [facility]. 01-20-2025 11:25-0400 Body temperature 97.2 [degF] Rhonda Bardales LPN [facility], [facility].; [facility] [employer] [facility]. Comment on above: Method: Tympanic 01-20-2025 11:25-040 Body weight 64.86 kg Rhonda Bardales LPN [facility], [facility].; [facility], [facility]. 01-20-2025 11:25-0400 Diastolic blood pressure 83 mm[Hg] Rhonda Bardales LPN [facility], [facility].; [employer], [facility]. Comment on above: Patient Position: Sitting; Cuff Location : Left Arm; Cuff Size: Standard 01-20-2025 11:25-0400 Heart rate 77 /min Rhonda Bardales LPN [facility] [facility].; [employer]. Comment on above: Pattern: Regular 01-20-2025 11:25-0400 Systolic blood pressure 129 mm[Hg] Rhonda Bardales LPN [facility] [facility].; [employer]. Comment on above: Patient Position: Sitting; Cuff Location : Left Arm; Cuff Size: Standard 10-19-2024 10:32-0500 Body height 165.1 cm Arin Patton MA [facility] [employer] [facility].; [employer]. 10-19-2024 10:32-0500 Body mass index (BMI) [Ratio] 23.65 kg/m2 Arin Patton MA [facility] [employer].; [place] [employer]. 10-19-2024 10:32-0500 Body surface area Derived from formula 1.71 m2 Arin Patton MA [facility].; [employer]. 10-19-2024 10:32-0500 Body weight 64.47 kg Arin Patton MA [facility] [facility].; [employer]. 10-19-2024 10:32-0500 Diastolic blood pressure 74 mm[Hg] Arin Patton MA [facility] [employer].; [employer]. Comment on above: Patient Position: Sitting; Cuff Location : Left Arm; Cuff Size: Standard 10-19-2024 10:32-0500 Heart rate 76 /min Arin Patton MA [facility].; [employer]. Comment on above: Pattern: Regular 10-19-2024 10:32-0500 Systolic blood pressure 127 mm[Hg] Arin Patton MA [facility].; [employer]. Comment on above: Patient Position: Sitting; Cuff Location : Left Arm; Cuff Size: Standard 04-16-2023 07:05-0400 Body weight 63.96 kg Uche Goodwin LPN [facility].; [employer]. 04-16-2023 07:05-0400 Diastolic blood pressure 69 mm[Hg] Uche Goodwin LPN [place] [facility].; [employer]. Comment on above: Patient Position: Sitting; Cuff Location : Left Arm; Cuff Size: Standard 04-16-2023 07:05-0400 Heart rate 54 /min Uche Goodwin DESMOND [facility], [employer].; [employer]. Comment on above: Pattern: Regular 04-16-2023 07:05-0400 Systolic blood pressure 131 mm[Hg] Uche Goodwin DESMOND [facility], [facility] [employer], [employer]. Comment on above: Patient Position: Sitting; Cuff Location : Left Arm; Cuff Size: Standard 03-06-2022 11:07-0400 Body height 165.1 cm Lucy Ghotrar [facility], [employer].; [employer], [employer]. 03-06-2022 11:07-0400 Body mass index (BMI) [Ratio] 23.48 kg/m2 Lucy Ghotrar [facility], [employer].; [employer], [employer]. 03-06-2022 11:07-0400 Body surface area Derived from formula 1.71 m2 Lucy Ghotrar [facility], [employer].; [employer], [employer]. 03-06-2022 11:07-0400 Body weight 64.01 kg Lucy Ghotrar [facility], [employer].; [employer], [employer]. 03-06-2022 11:07-0400 Diastolic blood pressure 69 mm[Hg] Lucy Ghotrar [facility], [employer].; [employer], [employer]. Comment on above: Patient Position: Sitting; Cuff Location : Left Arm; Cuff Size: Standard 03-06-2022 11:07-0400 Heart rate 73 /min Lucy [facility], [employer].; [employer]. Comment on above: Pattern: Regular 03-06-2022 11:07-0400 Systolic blood pressure 101 mm[Hg] Lucy [facility]rar [facility], [employer].; [employer]. Comment on above: Patient Position: Sitting; Cuff Location : Left Arm; Cuff Size: Standard 11-28-2021 13:47-0400 Body height 165.1 cm Lucy [facility]hotrar [facility], [employer].; [employer]. 11-28-2021 13:47-0400 Body mass index (BMI) [Ratio] 23.46 kg/m2 Lucy Willams [facility], Inc.; [employer] 11-28-2021 13:47-0400 Body surface area Derived from formula 1.71 m2 Lucy Willams [facility], Inc.; [employer] 11-28-2021 13:47-0400 Body weight 63.96 kg Lucy Willams [facility], Inc.; [employer] 11-28-2021 13:47-0400 Diastolic blood pressure 71 mm[Hg] Lucy Willams [facility], Inc.; [employer] Comment on above: Patient Position: Sitting; Cuff Location : Left Arm; Cuff Size: Standard 11-28-2021 13:47-0400 Heart rate 65 /min Lucy Willams [facility], [employer].; [employer] Comment on above: Pattern: Regular 11-28-2021 13:47-0400 Systolic blood pressure 114 mm[Hg] Lucy Willams [facility], [facility].; [employer] Comment on above: Patient Position: Sitting; Cuff Location : Left Arm; Cuff Size: Standard 03-22-2020 10:00-0400 Body height 165.1 cm Rhonda Bardales LPN [facility], [facility].; [employer], [employer]. 03-22-2020 10:00-0400 Body mass index (BMI) [Ratio] 24.13 kg/m2 Rhonda Bardales LPN [facility], [facility].; [employer] 03-22-2020 10:00-0400 Body surface area Derived from formula 1.73 m2 Rhonda Bardales LPN [place] [facility], [facility].; [employer] [facility]. 03-22-2020 10:00-0400 Body weight 65.77 kg Rhonda Bardales LPN [place] [facility], [facility].; [employer], [employer]. 03-22-2020 10:00-0400 Diastolic blood pressure 73 mm[Hg] Rhonda Bardales LPN [place] [facility], [facility].; [employer]. Comment on above: Patient Position: Sitting; Cuff Location : Left Arm; Cuff Size: Standard 03-22-2020 10:00-0400 Heart rate 69 /min Rhonda Bardales DESMOND [place] [employer].; [employer]. Comment on above: Pattern: Regular 03-22-2020 10:00-0400 Systolic blood pressure 108 mm[Hg] Rhonda Bardales DESMOND [facility].; [employer]. Comment on above: Patient Position: Sitting; Cuff Location : Left Arm; Cuff Size: Standard 11-10-2017 08:39-0500 Body temperature 99.3 [degF] Elana Fritz PA-C Work Phone: [place] [employer].; [employer]. 11-10-2017 08:39-0500 Body weight 65.77 kg Elana Fritz PA-C Work Phone: [place] [employer].; [employer]. 11-10-2017 08:39-0500 Diastolic blood pressure 80 mm[Hg] Elana Fritz PA-C Work Phone: [employer].; [place]. Comment on above: Patient Position: Sitting; Cuff Location : Left Arm; Cuff Size: Standard 11-10-2017 08:39-0500 Heart rate 83 /min Elana Fritz PA-C Work Phone: [place] [employer].; [employer]. Comment on above: Pattern: Regular 11-10-2017 08:39-0500 Systolic blood pressure 117 mm[Hg] Elana Fritz PA-C Work Phone: [employer].; [place]. Comment on above: Patient Position: Sitting; Cuff Location : Left Arm; Cuff Size: Standard 09-02-2014 08:22-0500 Body temperature 99.7 [degF] Stephany Blanca LPN [place] [facility].; [employer]. Comment on above: Method: Tympanic 09-02-2014 08:22-0500 Body weight 64.86 kg Stephany Blanca LPN [employer].; [employer]. 09-02-2014 08:22-0500 Diastolic blood pressure 71 mm[Hg] Stephany Blanca DESMOND [facility] Inc.; [facility]. Comment on above: Patient Position: Sitting; Cuff Location : Left Arm; Cuff Size: Standard 09-02-2014 08:22-0500 Heart rate 76 /min Stephany Praterjohanna LOGAN [facility], [facility] [employer]. Comment on above: Pattern: Regular 09-02-2014 08:22-0500 Inhaled oxygen concentration 20 % Stephany Praterjohanna LOGAN [facility], [facility].; [employer]. Comment on above: Room air 09-02-2014 08:22-0500 Inhaled oxygen concentration 21 % Stephany Wejohanna [facility], [employer].; [employer]. Comment on above: Room air 09-02-2014 08:22-0500 SaO2% (BldA) [Mass fraction] 98 % Stephany Parterjohanna [facility], [employer].; [employer], [employer]. 09-02-2014 08:22-0500 Systolic blood pressure 113 mm[Hg] Stephany Dickensharperrufus SENIOR MANUFACTURING TEST ENGINEERBoston [facility] Medical Center [facility], [employer].; [employer]. Comment on above: Patient Position: Sitting; Cuff Location : Left Arm; Cuff Size: Standard 06-28-2013 09:130400 Body height 165.1 cm Elana Fritz PA-C Work Phone: [employer].; [employer]. 06-28-2013 09:13-0400 Body mass index (BMI) [Ratio] 23.71 kg/m2 Elana Fritz PA-C Work Phone: [employer].; [employer]. 06-28-2013 09:130400 Body surface area Derived from formula 1.71 m2 Elana Fritz PA-C Work Phone: [employer].; [place]. 06-28-2013 09:13-0400 Body weight 64.64 kg Elana Fritz PA-C Work Phone: [facility].; [facility] [employer] [facility] 06-28-2013 09:13-0400 Diastolic blood pressure 81 mm[Hg] Elana Fritz PA-C Work Phone: [facility].; [place] [facility]. Comment on above: Patient Position: Sitting; Cuff Location : Left Arm; Cuff Size: Standard 06-28-2013 09:13-0400 Heart rate 72 /min Elana Fritz PA-C Work Phone: [facility].; [employer]. Comment on above: Pattern: Regular 06-28-2013 09:13-0400 Systolic blood pressure 126 mm[Hg] Elana Fritz PA-C Work Phone: [facility].; [employer]. Comment on above: Patient Position: Sitting; Cuff Location : Left Arm; Cuff Size: Standard 04-14-2012 10:20-0400 Body height 165.1 cm Keri Hicks [facility].; [place] [facility]. 04-14-2012 10:20-0400 Body mass index (BMI) [Ratio] 23.96 kg/m2 JingJoseline Hicsk [facility].; [facility], [facility]. 04-14-2012 10:20-0400 Body surface area Derived from formula 1.72 m2 [facility] [place] [facility].; [facility]. 04-14-2012 10:20-0400 Body weight 65.32 kg [facility] Kurt [facility].; [place] [facility]. 04-14-2012 10:20-0400 Diastolic blood pressure 77 mm[Hg] JingJoseline Hicks [facility].; [place] [facility]. Comment on above: Patient Position: Sitting; Cuff Location : Left Arm; Cuff Size: Large 04-14-2012 10:20-0400 Heart rate 74 /min Keri Hicks [facility].; [employer]. Comment on above: Pattern: Regular 04-14-2012 10:20-0400 Systolic blood pressure 120 mm[Hg] Keri Hicks LPN [facility], [facility] [employer], [employer]. Comment on above: Patient Position: Sitting; Cuff Location : Left Arm; Cuff Size: Large 04-24-2011 11:18-0400 Body height 165.1 cm Keri Hicks SENIOR MANUFACTURING TEST ENGINEER [facility], [facility] [employer], [employer]. 04-24-2011 11:18-0400 Body mass index (BMI) [Ratio] 23.3 kg/m2 Keri Hicks [facility], [facility] [employer], [employer]. 04-24-2011 11:18-0400 Body surface area Derived from formula 1.7 m2 Keri Hicks [facility], Inc.; [employer], [employer]. 04-24-2011 11:18-0400 Body weight 63.[address] [facility], [facility] [employer], [employer]. 04-24-2011 11:18-0400 Diastolic blood pressure 73 mm[Hg] Keri Hicks SENIOR MANUFACTURING TEST ENGINEER [facility] [employer], [employer]. Comment on above: Patient Position: Sitting; Cuff Location : Left Arm; Cuff Size: Large 04-24-2011 11:18-0400 Heart rate 55 /min Keri Hicks LPN [facility], [facility] [employer], [employer]. Comment on above: Pattern: Regular 04-24-2011 11:18-0400 Systolic blood pressure 111 mm[Hg] Keri Hicks LPN [facility].; [employer]. Comment on above: Patient Position: Sitting; Cuff Location : Left Arm; Cuff Size: Large Encounters Encounter Date Encounter Type Care Provider Facility Start: 07-04-2025 ambulatory Elana Fritz Facility[facility] Start: 06-29-2025 End: 06-29-2025 ambulatory [facility] Start: 06-21-2025 End: 06-21-2025 Admission to same day surgery center Bela Ty RN [facility] Comment on above: Screen for colon can cer (Primary Dx) Start: 06-01-2025 ambulatory KATLYN MACK MD Faci lity:[facility] Start: 05-14-2025 ambulatory KODAKCLAUDIO [facility] Start: 05-14-2025 End: 05-14-2025 Office outpatient new 20 minutes Larry Causey REFERRAL MANAGEMENT LIAISON-[employer] ARCHITECT Work Phone: [facility] Comment on above: Cystitis (Primary Dx ); Dysuria Start: 05-14-2025 ambulatory LARRY [facility] Start: 02-21-2025 End: 02-21-2025 ambulatory LUIGI Blanca~[id number] MARIAN BECERRA Facility:[facility] Start: 01-20-2025 End: 01-20-2025 Office outpatient visit 15 minutes Elana Fritz PA-C Work Phone: [employer]. Start: 01-20-2025 Review Elana Fritz P A-C Work Phone: [employer]. Start: 10-19-2024 End: 10-19-2024 Office outpatient visit 15 minutes Elana Fritz PA-C Work Phone: [employer]. Start: 10-19-2024 ambulatory [facility] Start: 08-27-2024 End: 08-27-2024 ambulatory GOODMAN KATLYN MACK MD~[id number] Facility:[facility] Start: 11-06-2023 End: 11-06-2023 ambulatory DANIEL MARC Facility: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 Start: 05-15-2023 End: 05-15-2023 Patient encounter procedure [...] Start: 04-30-2023 End: 04-30-2023 ambulatory LUIGI [facility] Facility:[facility] Start: 04-30-2023 End: 04-30-2023 Patient encounter procedure Daylin Germain OD Work Phone: Optometry Comment on above: Horseshoe retinal te ar of left eye (Primary Dx) Start: 04-16-2023 End: 04-16-2023 ambulatory DAYLIN GERMAIN II Facility:[facility] Start: 04-16-2023 End: 04-16-2023 Patient encounter procedure Daylin Germain OD Work Phone: Optometry Comment on above: Ocular contusion, le ft, initial encounter (Primary Dx); Retinal hemorrhage, left eye Start: 04-16-2023 End: 04-16-2023 Office outpatient visit 15 minutes Elana Fritz PA-C Work Phone: [facility] Start: 04-14-2023 End: 04-14-2023 ambulatory VY GERMAIN Facility:[facility] Start: 04-14-2023 End: 04-14-2023 Patient encounter procedure [...] encounter procedure Elana Fritz PA-C Work Phone: [employer] Start: 11-28-2021 End: 11-28-2021 Periodic preventive med est patient 40-64yrs Elana Fritz PA-C Work Phone: [employer]. Start: 11-28-2021 End: 11-28-2021 Physical examination Elana Fritz PA-C Work Phone: [employer]; [employer]. Start: 03-22-2020 End: 03-22-2020 Patient encounter procedure Elanadarcy Fritz PA-C Work Phone: [employer] Start: 11-10-2017 End: 11-10-2017 Office outpatient visit 15 minutes Elanadarcy Fritz PA-C Work Phone: [employer] Start: 09-02-2014 End: 09-02-2014 Patient encounter procedure Elana Fritz PA-C Work Phone: [facility] Start: 06-28-2013 End: 06-28-2013 Patient encounter procedure Elana Fritz PA-C Work Phone: [facility] Start: 04-14-2012 End: 04-14-2012 Patient encounter procedure Elana Fritz PA-C Work Phone: [facility] Start: 04-24-2011 End: 04-24-2011 Patient encounter procedure Elana Fritz PA-C Work Phone: [facility] Physical examination Bela Vance RN [facility]; [facility] Procedures Date Procedure Procedure Detail Performing Clinician Start: 05-15-2025 Urnls dip stick/tabl et rgnt non-auto w/o micrscp Larry Causey REFERRAL MANAGEMENT LIAISON-[employer] ARCHITECT Work Phone: Start: 11-06-2023 Computerized ophthal hank [...] oe acl repair left knee Lucy isabel FIRE PREVENTION ENGINEER Comment on above: Dr Posadas -2006 acl repair left knee Arin Patton MA Comment on above: Dr Katharina Mobley2006 Plan of Treatment Date Care Activity Detail Author Start: 06-29-2025 Subsequent hospital visit by physician 06/29/[address] [facility] [address] [place] [address] Cholo Murillo MD [address] [address] [facility] Start: 05-16-2025 Influenza vaccination INFLUENZA VACCINE (#1) [facility] Start: 01-20-2025 Antibody borrelia burgdorferi lyme disease Lyme Titer/EIA, reflex IgM and IgG (80333) Start: 20-Jan-2025 11:33-04:00 Request [facility] Start: 05-16-2024 COVID-19 VACCINE ( season) COVID-19 VACCINE () [facility] Start: 05-16-2024 Influenza vaccination Influenza Vaccine (#1) [facility] Start: 09-15-2023 Behavioral Health Screening Behavioral Health Screening [facility] Start: 09-15-2023 Depression Assessment Depression Assessment [facility] Start: 05-16-2023 Covid-19 Vaccine () Covid-19 Vaccine () [facility] Start: 05-16-2023 Influenza vaccination [facility] Start: 09-15-2022 DEPRESSION ASSESSMENT DEPRESSION ASSESSMENT [facility] Start: 05-16-2022 Influenza vaccination [facility] [facility] Start: 2021 Pneumococcal vaccination PNEUMOCOCCAL VACCINE SERIES (1 of 1 - PCV) [facility] Start: 2021 SHINGRIX VACCINE (1 of 2) SHINGRIX VACCINE (1 of 2) [facility] Start: 2021 Zoster vaccine hzv live for subcutaneous use ZOSTER (SHINGLES) VACCINE (1 of 2) [facility] Start: 2016 COLOGUARD (FIT-DNA) COLOGUARD (FIT-DNA) [facility] Start: 2016 Colonoscopy COLONOSCOPY [facility] Start: 2016 COLORECTAL CANCER SCREENING COLORECTAL CANCER SCREENING [facility] Start: [address] COLONOGRAPHY [facility] Start: 2016 DIABETES SCREEN DIABETES SCREEN [facility] Start: 2016 Diabetes Screening Diabetes Screening [facility] Start: 2016 FECAL OCCULT BLOOD FECAL OCCULT BLOOD [facility] Start: 2016 Lipid panel Lipid Screening [facility] Start: 2016 LIPID SCREEN LIPID SCREEN [facility] Start: 2016 Screening for malignant neoplasm of colon [facility] Start: 2016 SIGMOIDOSCOPY SIGMOIDOSCOPY [facility] Start: 01-19-2016 HPV TESTING HPV TESTING [facility] Start: 01-19-2016 PAP TESTING PAP TESTING [facility] Start: 01-19-2016 Screening for malignant neoplasm of cervix [facility] Start: 01-18-2014 Screening for malignant neoplasm of cervix Cervical Cancer Screening [facility] Start: 2011 Lipid panel LIPID SCREENING [facility] Start: 2011 Mammography MAMMOGRAM [facility] Start: 2011 Screening for malignant neoplasm of breast [facility] Start: 1992 Screening for malignant neoplasm of cervix CERVICAL CANCER SCREENING DISCUSSION [facility] Start: 1990 Hepatitis B vaccination HEP B VACCINE (1 of 3 - 19+ 3-dose series) [facility] Start: 1990 Hepatitis B Vaccine (1 of 3 - 19+ 3-dose series) Hepatitis B Vaccine (1 of 3 - 19+ 3-dose series) [facility] Start: 1990 Third diphtheria, tetanus and acellular pertussis (DTaP) vaccination TDAP (ADULT) [facility] Start: 1990 Urine microalbumin profile [facility] Start: 1989 ANNUAL PCP TEAM CHRONIC DISEASE VISIT ANNUAL PCP TEAM CHRONIC DISEASE VISIT [facility] Start: 1989 HEPATITIS C SCREENING HEPATITIS C SCREENING [facility] Start: 1989 Hepatitis C screening Hepatitis C Screening [facility] Start: 1989 HIV SCREENING HIV SCREENING [facility] Start: 1989 HIV screening HIV Screening [facility] Start: 1986 HIV screening HIV SCREENING DISCUSSION [facility] Start: 1983 Adult depression screening assessment DEPRESSION SCREENING [facility] Start: 1976 COVID-19 VACCINE (#1) COVID-19 VACCINE (#1) [facility] Start: 02-25-1972 COVID-19 VACCINE (#1) COVID-19 VACCINE (#1) [facility] Start: 1971 HEPATITIS B (1 of 3 - 3-dose series) HEPATITIS B (1 of 3 - 3-dose series) [facility] Start: 1971 Hepatitis B Vaccine (1 of 3 - 3-dose series) Hepatitis B Vaccine (1 of 3 - 3-dose series) [facility] Start: 1971 Hepatitis C screening HEPATITIS C VIRUS SCREENING [facility] Start: 1971 Tetanus vaccination TETANUS [facility] Colonoscopy flx dx w/collj spec when pfrmd COLONOSCOPY Screen for colon cancer [facility] Payers Date Payer Category Payer Self-pay 2025 Managed Care (unspecified) MMO [id number] 2022 Managed Care PPO (unspecified) [employer] PPO [id number] 2022 Unknown 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 1971 Unknown [id number] 1971 Unknown [id number] 1971 Unknown [id number] 1971 Unknown [id number] 1971 Unknown [id number] Unknown [id number] Social History Date Type Detail Facility Start: 05-15-2023 End: 06-13-2025 Tobacco smoking status NHIS Never smoked tobacco [facility] Start: 03-12-2022 End: 04-30-2023 Alcohol intake Ex-drinker (finding) [facility] Start: 1970 Sex Assigned At Not on file [facility] Start: 03-02-2022 End: 04-16-2022 Exposure to SARS-CoV-2 (event) Not sure [facility] Start: 03-23-2014 End: 04-16-2022 History of Social function [facility] Start: 03-23-2014 End: 04-16-2022 Tobacco use panel [facility] National Score (1-100), lower number is lower risk Not on file [facility] Start: 05-15-2023 End: 06-13-2025 Tobacco use and exposure Smokeless tobacco non-user [facility] Tobacco Use: Tobacco Use: ; N ever smoker. [employer]; [place]. Female [employer]; [place] Work Phone: Tobacco smoking status NMIS Tobacco smoking consumption unknown [facility] Start: 05-14-2025 Sex Female (finding) [facility] Clinical Notes 03-12-2022 to 06-29-2025 Larry Causey APRN-[employer] ARCHITECT - 05/14/2025 10:00 AM Daniel Khan MD - 11/06/2023 9:00 AM Reilly Cavazos MD - 05/15/2023 11:39 AM Henrique Mojica MD - 04/30/2023 1:53 PM EDT Note Date & Type Note Facility 06-29-2025 Note ENDOSCOPY OUTPATIENT PRE-PROCEDURE NOTE Patient Name: Azra Hinojosa MR #: [id number] Indication: Colorectal screening, average risk Brief History: [...] AUTHENTICATED BY CHOLO MURILLO, ON 06/29/2025 09:40:42 [facility] 05-14-2025 History of Presen t illness Narrative See paper charting documented in this encounter [facility] 11-06-2023 History of Presen t illness Narrative [...] relevant components. Daniel Marc MD Vitreoretinal Surgery [facility] documented in this encounter [facility] 11-06-2023 Note HNO ID: [id number] Author: DANIEL MARC MD Service: ? Author [...] relevant components. Daniel Marc MD Vitreoretinal Surgery [facility] 05-15-2023 Note HNO ID: [id number] Author: Reilly Omalley MD Service: ? Author Type: Physician Type: Progress Notes Filed: 05/15/2023 11:41 AM Note Text: Follow up from laser retinopexy No new changes Symptomatic horseshoe tear, LEFT EYE Acute Posterior Vitreous Detachment, LEFT EYE - HST 5286-2046 without significant SRF, some early pigmentation anteriorly [...] Omalley MD May 15, 2023 11:39 AM [facility] 05-15-2023 History of Presen t illness Narrative Follow up from laser retinopexy No new changes Symptomatic horseshoe tear, LEFT EYE Acute Posterior Vitreous Detachment, LEFT EYE - HST 9969-8877 without significant SRF, some early pigmentation anteriorly [...] 2023 11:39 AM documented in this encounter [facility] 05-06-2023 Telephone encounter Note Summary: Update [...] anything to do with what is happening.) [facility] 05-06-2023 Miscellaneous Notes Summary: Update / [...] what is happening.) documented in this encounter [facility] 04-30-2023 Note HNO ID: [id number] Author: Henrique Kerr MD Service: ? Author [...] Posterior Vitreous Detachment, LEFT EYE - HST 7167-5881 without significant SRF, some early pigmentation anteriorly [...] scleral depressed examination > RD precautions discussed #[phone] (patient) Henrique Kerr MD Vitreoretinal Surgery Fellow [facility] 04-30-2023 History of Presen t illness Narrative Urgent SDA: 52 year old female seen by Dr. Germain OD today and referred for HST OS. Endorses flashes/floaters for 2-3 weeks in the left eye after mild blunt trauma to the left eye. Symptoms seemed to improve gradually. Symptomatic horseshoe tear, LEFT EYE Acute Posterior Vitreous Detachment, LEFT EYE - HST 9029-4447 without significant SRF, some early pigmentation anteriorly [...] scleral depressed examination > RD precautions discussed #[phone] (patient) Henrique Kerr MD Vitreoretinal Surgery Fellow [facility] documented in this encounter [facility] 04-30-2023 Instructions Daylin Germain II, OD - 04/30/2023 9:37 AM EDT Assessment and Plan H33.312 Horseshoe retinal tear of left eye (primary encounter diagnosis) Comment: Patient to see Dr. Kerr at [facility] at 12:30 pm today. NPO until seen. [...] Germain II OD documented in this encounter [facility] 04-30-2023 Note HNO ID: [id number] Author: Daylin Germain II, OD Service: ? Author Type: INVOICE MACHINE OPERATOR Type: Progress Notes Filed: 04/30/2023 9:37 AM Note Text: Assessment and Plan H33.312 Horseshoe retinal tear of left eye (primary encounter diagnosis) Comment: Patient to see Dr. Kerr at [facility] at 12:30 pm today. NPO until seen. [...] its relevant components. Daylin Germain II, OD [facility] 04-30-2023 History of Presen t illness Narrative Assessment and Plan H33.312 Horseshoe retinal tear of left eye (primary encounter diagnosis) Comment: Patient to see Dr. Kerr at [facility] at 12:30 pm today. NPO until seen. [...] Germain II OD documented in this encounter [facility] 04-16-2023 Instructions Daylin Germain II, OD [...] Germain II, OD documented in this encounter [facility] 04-16-2023 Note HNO ID: [id number] Author: Daylin Germain II, OD Service: ? Author Type: INVOICE MACHINE OPERATOR Type: Progress Notes Filed: 04/16/2023 11:14 AM [...] its relevant components. Daylin Germain II, OD [facility] 04-16-2023 History of Presen t illness Narrative [...] Germain II, OD documented in this encounter [facility] 04-14-2023 Instructions Vy Germain OD - [...] in 3 weeks. documented in this encounter [facility] 04-14-2023 Note HNO ID: [id number] Author: Vy Germain OD Service: ? Author Type: INVOICE MACHINE OPERATOR Type: Progress Notes Filed: 04/16/2023 10:45 AM [...] neuro exam findings as obtained by others. [facility] 04-14-2023 History of Presen t illness Narrative [...] obtained by others. documented in this encounter [facility] 04-16-2022 Instructions Emiliano Fajardo MD - 04/16/2022 11:33 AM EDT Discontinue: Polytrim and FML eyedrops. Patient to see Dr. Germain for her yearly exam. If you have any questions please contact our office at [phone]. After office hours or on the weekend, please call Dr. Fajardo on his cell phone at [phone]. documented in this encounter [facility] 04-16-2022 History of Presen t illness [...] Emiliano Fajardo MD documented in this encounter [facility] 04-09-2022 Instructions Emiliano Fajardo MD - [...] any questions please contact our office at [phone]. After office hours or on the weekend, please call Dr. Fajardo on his cell phone at [phone]. documented in this encounter [facility] 04-09-2022 History of Presen t illness [...] Emiliano Fajardo MD documented in this encounter [facility] 04-09-2022 Instructions Daylin Germain II, OD [...] Germain II, OD documented in this encounter [facility] 04-09-2022 History of Presen t illness [...] Germain II, OD documented in this encounter [facility] 04-05-2022 Instructions Daylin Germain II, OD [...] Germain II, OD documented in this encounter [facility] 04-05-2022 History of Presen t illness [...] Germain II, OD documented in this encounter [facility] 03-12-2022 Instructions Daylin Germain II, OD [...] Germain II, FREDDY documented in this encounter [facility] 03-12-2022 History of Presen t illness [...] Germain II, OD documented in this encounter [facility] Evaluation note Diagnosis Bacterial conjunctivitis of both eyes- Primary [facility] Diagnosis Conjunctival abrasion, right, initial encounter- Primary [facility] Diagnosis Abrasion of right conjunctiva, subsequent encounter- Primary [facility] Diagnosis Conjunctival laceration, right, initial encounter- Primary Unspecified hypothyroidism History of seasonal allergies Other allergy, other than to medicinal agents [facility] Diagnosis Conjunctival laceration, right, sequela- Primary History of seasonal allergies Other allergy, other than to medicinal agents [facility] Diagnosis Vitreous hemorrhage of left eye (HCC)- Primary Vitreous hemorrhage Floaters, bilateral [facility] Diagnosis Ocular contusion, left, initial encounter- Primary Retinal hemorrhage, left eye Retinal hemorrhage [facility] Diagnosis Horseshoe retinal tear of left eye- Primary Horseshoe tear of retina without detachment [facility] Diagnosis Horseshoe retinal tear of left eye- Primary Horseshoe tear of retina without detachment [facility] Diagnosis Horseshoe retinal tear of left eye- Primary Horseshoe tear of retina without detachment Ocular contusion, left, initial encounter Retinal hemorrhage, left eye Retinal hemorrhage [facility]* Diagnosis Horseshoe retinal tear of left eye- Primary Horseshoe tear of retina without detachment [facility] Diagnosis Cystitis- Primary Cystitis, unspecified Dysuria [facility] Screen for colon cancer- Primary Special screening for malignant neoplasms, colon documented in this encounter [facility] Medications Administered Section Active Administered Medications - up to 3 most recent administrations Medication Order MAR Action Action Date Dose Rate Site fluorescein-benoxinate 0.25-0.4 % 1 Drop (FLURESS) 1 Drop, BOTH EYES, DIRECTED, Starting on Fri03/12/22 at 1430, Until Fri03/13/22 at 0229, Administer for applanation tonometry. In the event of a Fluress shortage, administer [place]-Fluor 1 drop into both eyes as directed [...] the event of a Fluress shortage, administer [place]-Fluor 1 drop into the right eye as [...] the event of a Fluress shortage, administer [place]-Fluor 1 drop into both eyes as directed [...] the event of a Fluress shortage, administer [place]-Fluor 1 drop into both eyes as directed [...] or prosecute any alcohol or drug abuse patient.[facility] the event this information is protected by the Federal Confidentiality of Alcohol and Drug Abuse Patient Records regulations: The Federal rules restrict any use of the information to criminally investigate or prosecute any alcohol or drug abuse patient.[facility] the event this information is protected by the Federal Confidentiality of Alcohol and Drug Abuse Patient Records regulations: The Federal rules restrict any use of the information to criminally investigate or prosecute any alcohol or drug abuse patient.[facility] the event this information is protected by the Federal Confidentiality of Alcohol and Drug Abuse Patient Records regulations: The Federal rules restrict any use of the information to criminally investigate or prosecute any alcohol or drug abuse patient.[facility] the event this information is protected by the Federal Confidentiality of Alcohol and Drug Abuse Patient Records regulations: The Federal rules restrict any use of the information to criminally investigate or prosecute any alcohol or drug abuse patient.[facility] the event this information is protected by the Federal Confidentiality of Alcohol and Drug Abuse Patient Records regulations: The Federal rules restrict any use of the information to criminally investigate or prosecute any alcohol or drug abuse patient.[facility] the event this information is protected by the Federal Confidentiality of Alcohol and Drug Abuse Patient Records regulations: The Federal rules restrict any use of the information to criminally investigate or prosecute any alcohol or drug abuse patient.[facility] the event this information is protected by the Federal Confidentiality of Alcohol and Drug Abuse Patient Records regulations: The Federal rules restrict any use of the information to criminally investigate or prosecute any alcohol or drug abuse patient.[facility] the event this information is protected by the Federal Confidentiality of Alcohol and Drug Abuse Patient Records regulations: The Federal rules restrict any use of the information to criminally investigate or prosecute any alcohol or drug abuse patient.[facility] the event this information is protected by the Federal Confidentiality of Alcohol and Drug Abuse Patient Records regulations: The Federal rules restrict any use of the information to criminally investigate or prosecute any alcohol or drug abuse patient.[facility] the event this information is protected by the Federal Confidentiality of Alcohol and Drug Abuse Patient Records regulations: The Federal rules restrict any use of the information to criminally investigate or prosecute any alcohol or drug abuse patient.[facility] the event this information is protected by the Federal Confidentiality of Alcohol and Drug Abuse Patient Records regulations: The Federal rules restrict any use of the information to criminally investigate or prosecute any alcohol or drug abuse patient.[facility] the event this information is protected by the Federal Confidentiality of Alcohol and Drug Abuse Patient Records regulations: The Federal rules restrict any use of the information to criminally investigate or prosecute any alcohol or drug abuse patient.[facility] Reason for Visit (unrecogniz ed section [...] Care Teams (unrecognized sec tion and content) Cottage Master Relationship Specialty Start Date End Date Luigi Becerra MD PCP - General Family Practice 01/01/16 Cottage Master Relationship Specialty Start Date End Date Luigi Becerra MD PCP - General Family Practice 01/01/16 Cottage Master Relationship Specialty Start Date End Date Luigi Becerra MD PCP - General Family Practice 01/01/16 Cottage Master Relationship Specialty Start Date End Date Luigi Becerra MD PCP - General Family Practice 01/01/16 Cottage Master Relationship Specialty Start Date End Date Luigi Becerra MD PCP - General Family Practice 01/01/16 Cottage Master Relationship Specialty Start Date End Date Luigi Becerra MD PCP - General Family Practice 01/01/16 Cottage Master Relationship Specialty Start Date End Date Luigi Becerra MD PCP - General Family Medicine 01/01/16 Cottage Master Relationship Specialty Start Date End Date Luigi Becerra MD PCP - General Family Medicine 01/01/16 Cottage Master Relationship Specialty Start Date End Date Luigi Becerra MD PCP - General Family Medicine 01/01/16 Cottage Master Relationship Specialty Start Date End Date Luigi Becerra MD PCP - General Family Medicine 01/01/16 Cottage Master Relationship Specialty Start Date End Date Luigi [...] section and content) DATE CREATED AUTHOR 04/04/2024 [facility] DATE CREATED AUTHOR AUTHOR'S ORGANIZ ATION 10/21/2024 [facility] DATE CREATED AUTHOR AUTHOR'S ORGANIZ ATION 03/03/2025 [facility] DATE CREATED AUTHOR AUTHOR'S ORGANIZ ATION 05/16/2025 [facility] DATE CREATED AUTHOR AUTHOR'S ORGANIZ ATION 05/16/2025 [facility] DATE CREATED AUTHOR AUTHOR'S ORGANIZ ATION 06/18/2025 [facility] DATE CREATED AUTHOR AUTHOR'S ORGANIZ ATION 06/22/2025 [facility] DATE CREATED AUTHOR AUTHOR'S ORGANIZ ATION 07/02/2025 [facility] FOR RECORDS PERTAINING TO PATIENTS WHO ARE [...] BE BASED ON THE PRIMARY CLINICAL RECORDS. [facility] [employer] provides no warranty or guarantee of the accuracy or completeness of information in this document.
--- NOTE | 2025-07-04 07:15 | BI_ITS ---
EXAM: SCRN MAMM (CAD)W/INGRIS BILAT DATE: 07/04/2025 CLINICAL HISTORY: F, Age 54 y/o , SCREENING TECHNIQUE: Procedure Code: BISMWCADBTOM Modality: MG Procedure: SCRN MAMM (CAD)W/INGRIS BILAT COMPARISON: Prior exam(s) dated 07/30/2017 and 12/01/2015. FINDINGS: TISSUE DENSITY: There are scattered areas of fibroglandular density. Bilateral Breast Mammographic Findings: No significant masses, calcifications or other abnormalities are identified. Stable focal fibroglandular densities are noted in both breast. BI/SCRN MAMM (CAD)W/INGRIS BILAT IMPRESSION: Benign screening mammogram OVERALL FINAL ASSESSMENT BI-RADS 2: BENIGN RECOMMENDATION: Routine annual follow-up in 1 Year Additional Recommendation none A letter with findings and recommendations will be mailed to the patient. Reading Location: [id number]
--- NOTE | 2025-07-04 07:15 | BI_ITS ---
EXAM: SCRN MAMM (CAD)W/INGRIS BILAT DATE: 07/04/2025 CLINICAL HISTORY: F, Age 54 y/o , SCREENING TECHNIQUE: Procedure Code: BISMWCADBTOM Modality: MG Procedure: SCRN MAMM (CAD)W/INGRIS BILAT COMPARISON: Prior exam(s) dated 07/30/2017 and 12/01/2015. FINDINGS: TISSUE DENSITY: There are scattered areas of fibroglandular density. Bilateral Breast Mammographic Findings: No significant masses, calcifications or other abnormalities are identified. Stable focal fibroglandular densities are noted in both breast. BI/SCRN MAMM (CAD)W/INGRIS BILAT IMPRESSION: Benign screening mammogram OVERALL FINAL ASSESSMENT BI-RADS 2: BENIGN RECOMMENDATION: Routine annual follow-up in 1 Year Additional Recommendation none A letter with findings and recommendations will be mailed to the patient. Reading Location: [id number]
== END | disposition home or self-care (01) ==
PROVIDERS: PCP Family Medicine
DX: Z12.31 Encounter for screening mammogram for malignant neoplasm of breast (principal)
CPT/HCPCS: 77063; 77067